=== PATIENT | female | born 1955 | race Caucasian/White ===

== ENCOUNTER 2020-01-04 15:45 | Outpatient (REF) | payer OTHER, SELFPAY ==
[2020-01-19 19:21] LABS: HPV mRNA E6/E7 rflx Not Detected (Not Detected)
== END 2020-01-04 15:46 | disposition home or self-care (01) ==
LOC: HO.LNP 15:45
PROVIDERS: Visit Provider Internal Medicine
DX: Z01.419 Encounter for gynecological examination (general) (routine) without abnormal findings (principal); Z78.0 Asymptomatic menopausal state; Z87.19 Personal history of other diseases of the digestive system
CPT/HCPCS: 87624; 87625; 88142

== ENCOUNTER 2020-01-06 10:03 | Outpatient (REF) | payer OTHER, SELFPAY ==
--- NOTE | 2020-01-06 10:49 | MM_ITS ---
EXAMINATION: MM SCREENING DIGITAL BREAST TOMOSYNTHESIS, BILATERAL CLINICAL INFORMATION: Screening. Asymptomatic. The lifetime risk of breast cancer based on the Tyrer-Cuzick Model is 11.0%. COMPARISON: Mammography: March 06, 2018 and studies dating back to October 18, 2015 TECHNIQUE: Digital breast tomosynthesis is performed in both the craniocaudal and mediolateral oblique views along with computer-aided detection (CAD). Synthesized 2D images are generated from the tomosynthesis. FINDINGS: The breasts are extremely dense, which lowers the sensitivity of mammography (ACR BI-RADS breast composition Category d). There are no significant masses, abnormal calcifications, or other abnormalities. MM/MM tomosynthesis screening BI IMPRESSION: There are no significant changes from prior study. ASSESSMENT: BI-RADS 1: Negative RECOMMENDATION: Routine annual mammography screening. This patient's information was entered into a reminder system with a target due date for their next mammogram.
[2020-01-06 11:15] LABS: MANUAL DIFF FLAG NO
[2020-01-06 11:30] LABS: Basophils Absolute Auto 0.1 X10*3/uL (0.0-0.2); Basophils Percent Auto 0.8 % (0-2); Eosinophils Absolute Auto 0.2 X10*3/uL (0.0-0.4); Eosinophils Percent Auto 3.4 % (0-4); Hematocrit 39.3 % (37-47); Hemoglobin 12.7 g/dl (12.0-16.0); Imm Gran Abs Auto 0.01 X10*3/uL (0.00-0.03); Imm Gran Pct Auto 0.2 % (0.0-0.4); Immature Retic Fraction 4.3 % (3.0-15.9); Lymphocytes Absolute Auto 1.8 X10*3/uL (1.2-4.9); Lymphocytes Percent Auto 27.9 % (20-40); Mean Corpuscular HGB Conc 32.3 g/dl (31.0-35.0); Mean Corpuscular Hemoglobin 28.9 pg (27.0-33.0); Mean Corpuscular Volume 89.3 fL (80-98); Mean Platelet Volume 10.2 fL (9.4-12.3); Monocytes Absolute Auto 0.6 X10*3/uL (0.1-1.2); Monocytes Percent Auto 8.6 % (2-11); Neutrophils Absolute Auto 3.8 X10*3/uL (2.0-8.3); Neutrophils Percent Auto 59.1 % (45-73); Platelet Count 337 X10*3/uL (160-400); Red Cell Distribution Width 12.8 % (11.0-16.0); Retic HGB Equivalent 32.4 pg (30.0-35.0); Reticulocyte Percent 0.9 % (0.5-1.8); White Blood Count 6.4 X10*3/uL (4.8-10.8)
[2020-01-06 11:43] LABS: Alanine Aminotransferase 17 U/L (0-31); Albumin Level 4.1 g/dL (3.5-5.0); Alkaline Phosphatase 78 U/L (39-117); Anion Gap 12 (12-20); Aspartate Amino Transferase 22 U/L (5-31); Bilirubin Total 0.6 mg/dL (0.0-1.0); Blood Urea Nitrogen 12 mg/dL (9-16); Calcium 9.3 mg/dL (8.4-10.2); Carbon Dioxide 29 mmol/L (22-29); Chloride 105 mmol/L (96-108); Cholesterol 191 mg/dL; Estimated Glomerular Filt Rate > 60; Glucose Random 83 mg/dL (60-115); HDL Cholesterol 63 mg/dL; Iron 71 mcg/dL (30-160); LDL Cholesterol Calculated 116 mg/dl; Percent Iron Saturation 17 % (15-50); Potassium 4.8 mmol/l (3.3-5.1); Sodium 141 mmol/L (135-145); Total Iron Binding Capacity 410 mcg/dL (228-428); Total Protein 7.3 g/dL (6.5-8.0); Triglycerides 62 mg/dL; Unsaturated Iron Binding 339 ug/dL; Uric Acid 4.8 mg/dL (2.4-5.7)
[2020-01-06 12:07] LABS: Ferritin 17 ng/mL (10-250); Thyroid Stimulating Hormone 0.77 mIU/mL (0.32-4.0); Vitamin D 25-OH Total 81.8 ng/mL (>30)
[2020-01-06 12:31] LABS: Folate 11.9 ng/mL (> or = 4.0); Vitamin B12 454 pg/mL (200-900)
[2020-01-07 04:18] LABS: HBsAGNum1 0.13 S/CO (0.00-0.99); Hepatitis B Surface Antigen Negative (Negative)
[2020-01-07 04:24] LABS: HBS Num1 0.44 mIU/mL (0-7.99); HBc Num1 0.06 S/CO (0.00-0.79); Hepatitis B Core Antibody Nonreactive (Nonreactive); ~HepC Num1 0.09 S/CO (0.00-0.79); ~Hepatitis B Surface Antibody NONREACTIVE (Nonreactive); ~Hepatitis C Antibody Nonreactive (Nonreactive)
== END 2020-01-06 10:04 | disposition home or self-care (01) ==
LOC: HO.MAMMO 10:03
PROVIDERS: PCP Internal Medicine; Visit Provider Internal Medicine
DX: Z00.00 Encounter for general adult medical examination without abnormal findings (principal); Z12.31 Encounter for screening mammogram for malignant neoplasm of breast; Z87.19 Personal history of other diseases of the digestive system
CPT/HCPCS: 36415; 77063; 77067; 80053; 80061; 82306; 82607; 82728; 82746; 83540; 84439; 84443; 84550; 85025; 85045; 86704; 86706; 86803; 87340

== ENCOUNTER 2020-03-31 14:29 | Outpatient (REF) | payer OTHER, SELFPAY ==
--- NOTE | 2020-03-31 14:33 | MM_ITS ---
EXAMINATION: BONE DENSITOMETRY CLINICAL INDICATION: Other specified disorders of bone density and structure. COMPARISON: Baseline BD dated 02/05/2017. TECHNIQUE: Using a [employer] DXA System (software version: 13.1) manufactured by [employer], dual-energy x-ray absorptiometry was performed of the lumbar spine and left hip. The images are of good technical quality. Summary results are attached. FINDINGS: AP SPINE L1-L4: Current: BMD 1.004 g/cm2, Z-score 0.3, T-score -1.5, osteopenia, 6.8% decrease from baseline (<5% change is not significant). Baseline: BMD 1.077 g/cm2. LEFT FEMUR, NECK: Current: BMD 0.785 g/cm2, Z-score -0.2, T-score -1.8, osteopenia. Baseline: BMD 0.803 g/cm2. LEFT FEMUR, TOTAL: Current: BMD 0.792 g/cm2, Z-score -0.4, T-score -1.7, osteopenia, 2.6% decrease from baseline (<5% change is not significant). Baseline: BMD 0.813 g/cm2. IDENTIFIED RISK FACTORS: Early menopause, secondary osteoporosis, family history (parental hip fracture), history of fracture (adult), glucocorticoids (chronic). HISTORY OF FRACTURE: Shoulder. MEDICATIONS: Calcium supplements or multivitamin, vitamin D, ERT/SERMS. MM/XR DEXA axial skeleton IMPRESSION: 1. DIAGNOSIS: Osteopenia based on the lowest T-score value of -1.8 in the femoral neck applying World Health Organization criteria. 2. 10-YEAR FRACTURE RISK PREDICTION, FRAX: Major osteoporotic fracture (clinical spine, forearm, hip or shoulder) 25.3%. Hip fracture 2.2%. 3. Treatment Recommendations: NOF guidelines recommend consideration for treatment in postmenopausal women and men age 50 and older presenting with the following: -A hip or vertebral (clinical or morphometric) fracture. -T-score less than or equal to -2.5 at the femoral neck or spine after appropriate evaluation to exclude secondary causes. -Low bone mass at the hip or spine and a 10-year fracture probability by FRAX of greater than or equal to 3% for hip fracture or greater than or equal to 20% for major osteoporotic fracture based on the [place] adapted WHO algorithm. 4. Other Recommendations: All treatment decisions require clinical judgment and consideration of individual patient factors, including patient preferences, comorbidities, previous drug use, risk factors not captured in the FRAX model (e.g. frailty, falls, vitamin D deficiency, increased bone turnover, interval significant decline in bone density) and possible under or overestimation of fracture risk by FRAX. Additional medical evaluation for secondary cause of low bone mineral density may be appropriate. FUTURE SCAN RECOMMENDATION: People with diagnosed cases of osteoporosis or at high risk for fracture should have regular bone mineral density tests. For patients eligible for Medicare, routine testing is allowed once every 2 years. The testing frequency can be increased to one year for patients who have rapidly progressing disease, those who are receiving or discontinuing medical therapy to restore bone mass, or have additional risk factors.
== END 2020-03-31 14:30 | disposition home or self-care (01) ==
LOC: HO.MAMMO 14:29
PROVIDERS: PCP Internal Medicine; Visit Provider Internal Medicine
DX: M85.80 Other specified disorders of bone density and structure, unspecified site (principal); Z78.0 Asymptomatic menopausal state; E27.49 Other adrenocortical insufficiency
CPT/HCPCS: 77080

== ENCOUNTER 2021-07-07 07:50 | Outpatient (REF) | payer OTHER, SELFPAY ==
--- NOTE | ~2021-07-07 | MM_ITS ---
EXAMINATION: MM SCREENING DIGITAL BREAST TOMOSYNTHESIS, BILATERAL CLINICAL INFORMATION: Screening. Asymptomatic. The lifetime risk of breast cancer based on the Tyrer-Cuzick Model is 14%. COMPARISON: Mammography: 01/06/2020; outside mammography 03/06/2018, 03/05/2018, 02/08/2017 ([place]). TECHNIQUE: Digital breast tomosynthesis is performed in both the craniocaudal and mediolateral oblique views along with computer-aided detection (CAD). Synthesized 2D images are generated from the tomosynthesis. FINDINGS: The breasts are heterogeneously dense, which may obscure small masses (ACR BI-RADS breast composition Category c). There are no significant masses, abnormal calcifications, or other abnormalities. Parenchymal pattern is similar to prior studies. There is a dermal lesion again noted overlying posterior medial right breast, previously marked with dermal marker. MM/MM tomosynthesis screening BI IMPRESSION: No mammographic evidence of malignancy. ASSESSMENT: BI-RADS 2: Benign RECOMMENDATION: Routine annual mammography screening. This patient's information was entered into a reminder system with a target due date for their next mammogram.
== END 2021-07-07 07:51 | disposition home or self-care (01) ==
LOC: HO.MAMMO 07:50
PROVIDERS: Visit Provider Internal Medicine
DX: Z12.31 Encounter for screening mammogram for malignant neoplasm of breast (principal)
CPT/HCPCS: 77063; 77067

== ENCOUNTER 2021-07-07 13:57 | Outpatient (REF) | payer OTHER, SELFPAY ==
[2021-07-08 13:33] LABS: BV Int Neg Control Negative (Negative); BV Int Pos Control Positive (Positive)
[2021-07-13 04:37] LABS: HPV mRNA E6/E7 rflx Not Detected (Not Detected)
== END 2021-07-07 13:58 | disposition home or self-care (01) ==
LOC: HO.LAB 13:57
PROVIDERS: Visit Provider Internal Medicine
DX: Z12.4 Encounter for screening for malignant neoplasm of cervix (principal); Z11.51 Encounter for screening for human papillomavirus (HPV)
CPT/HCPCS: 87480; 87510; 87624; 87660; 88142

== ENCOUNTER 2021-07-25 07:38 | Outpatient (REF) | payer OTHER, SELFPAY ==
[2021-07-25 11:25] LABS: MANUAL DIFF FLAG NO
[2021-07-25 11:32] LABS: Basophils Absolute Auto 0.1 X10*3/uL (0.0-0.2); Eosinophils Absolute Auto 0.7 X10*3/uL (0.0-0.4); Eosinophils Percent Auto 10.6 % (0-4); Hemoglobin 12.2 g/dl (12.0-16.0); Imm Gran Abs Auto 0.01 X10*3/uL (0.00-0.03); Imm Gran Pct Auto 0.2 % (0.0-0.4); Lymphocytes Absolute Auto 1.6 X10*3/uL (1.2-4.9); Lymphocytes Percent Auto 26.8 % (20-40); Mean Corpuscular HGB Conc 32.1 g/dl (31.0-35.0); Mean Corpuscular Hemoglobin 29.4 pg (27.0-33.0); Mean Corpuscular Volume 91.6 fL (80.0-98.0); Mean Platelet Volume 10.4 fL (9.4-12.3); Monocytes Absolute Auto 0.8 X10*3/uL (0.1-1.2); Monocytes Percent Auto 13.1 % (2-11); Neutrophils Percent Auto 48.3 % (45-73); Platelet Count 285 X10*3/uL (160-400); Red Blood Count 4.15 X10*6/uL (4.20-5.50); Red Cell Distribution Width 13.4 % (11.0-16.0); White Blood Count 6.1 X10*3/uL (4.8-10.8)
[2021-07-25 12:01] LABS: Alanine Aminotransferase 19 U/L (0-31); Albumin Level 3.7 g/dL (3.5-5.0); Alkaline Phosphatase 73 U/L (39-117); Anion Gap 10 (12-20); Aspartate Amino Transferase 22 U/L (5-31); Bilirubin Total 0.4 mg/dL (0.0-1.0); Blood Urea Nitrogen 11 mg/dL (9-16); Carbon Dioxide 27 mmol/L (22-29); Chloride 105 mmol/L (96-108); Cholesterol 190 mg/dL; Estimated Glomerular Filt Rate > 60; Glucose Random 94 mg/dL (60-115); HDL Cholesterol 59 mg/dL; LDL Cholesterol Calculated 109 mg/dl; Sodium 138 mmol/L (135-145); Total Protein 6.8 g/dL (6.5-8.0); Triglycerides 114 mg/dL
[2021-07-25 12:15] LABS: Erythrocyte Sedimentation Rate 20 MM/HR (0-20); Free T4 (Free Thyroxine) 0.88 ng/dL (0.71-1.85); Thyroid Stimulating Hormone 0.78 uIU/mL (0.32-4.0)
[2021-07-25 12:18] LABS: Folate 17.9 ng/mL (> or = 4.0); Vitamin B12 353 pg/mL (200-900)
[2021-07-25 14:34] LABS: CT PCR NOT DETECTED (Not Detect.); NG PCR NOT DETECTED (Not Detect.)
== END 2021-07-25 07:39 | disposition home or self-care (01) ==
LOC: HO.HMGCLDS 07:38
PROVIDERS: Visit Provider Internal Medicine
DX: Z11.3 Encounter for screening for infections with a predominantly sexual mode of transmission (principal); E78.00 Pure hypercholesterolemia, unspecified; Z87.19 Personal history of other diseases of the digestive system
CPT/HCPCS: 80053; 80061; 82306; 82607; 82746; 84439; 84443; 85025; 85652; 87491; 87591

== ENCOUNTER 2022-07-13 08:37 | Outpatient (REF) | payer MEDICARE, MEDICAID, SELFPAY ==
--- NOTE | ~2022-07-13 | MM_ITS ---
EXAMINATION: MM SCREENING DIGITAL BREAST TOMOSYNTHESIS, BILATERAL CLINICAL INFORMATION: Screening. Asymptomatic. The lifetime risk of breast cancer based on the Tyrer-Cuzick Model is 12%. COMPARISON: Mammography: 07/07/2021, 01/06/2020, outside breast imaging [place]: Mammography 03/06/2018, 03/05/2018, left breast ultrasound 03/06/2018. TECHNIQUE: Digital breast tomosynthesis is performed in both the craniocaudal and mediolateral oblique views along with computer-aided detection (CAD). Synthesized 2D images are generated from the tomosynthesis. Additional bilateral exaggerated CC views are provided. FINDINGS: The breasts are heterogeneously dense, which may obscure small masses (ACR BI-RADS breast composition Category c). There are no significant masses, abnormal calcifications, or other abnormalities. Parenchymal pattern is similar to prior studies. There is no developing density or architectural abnormality. The axilla and skin contours are unremarkable. No significant changes. MM/MM tomosynthesis screening BI IMPRESSION: No mammographic evidence of malignancy. ASSESSMENT: BI-RADS 1: Negative RECOMMENDATION: Routine annual mammography screening. This patient's information was entered into a reminder system with a target due date for their next mammogram.
== END 2022-07-13 08:38 | disposition home or self-care (01) ==
LOC: HO.MAMMO 08:37
PROVIDERS: PCP Internal Medicine; Visit Provider Internal Medicine
DX: Z12.31 Encounter for screening mammogram for malignant neoplasm of breast (principal)
CPT/HCPCS: 77063; 77067

== ENCOUNTER 2022-07-13 09:54 | Outpatient (REF) | payer MEDICARE, MEDICAID, SELFPAY ==
[2022-07-13 10:17] LABS: MANUAL DIFF FLAG NO
[2022-07-13 10:30] LABS: Basophils Absolute Auto 0.1 X10*3/uL (0.0-0.2); Basophils Percent Auto 1.3 % (0-2); Eosinophils Absolute Auto 0.5 X10*3/uL (0.0-0.4); Eosinophils Percent Auto 8.3 % (0-4); Hematocrit 39.2 % (37.0-47.0); Hemoglobin 12.6 g/dl (12.0-16.0); Imm Gran Abs Auto 0.01 X10*3/uL (0.00-0.03); Imm Gran Pct Auto 0.2 % (0.0-0.4); Lymphocytes Absolute Auto 1.4 X10*3/uL (1.2-4.9); Lymphocytes Percent Auto 25.3 % (20-40); Mean Corpuscular HGB Conc 32.1 g/dl (31.0-35.0); Mean Corpuscular Hemoglobin 29.2 pg (27.0-33.0); Mean Platelet Volume 9.6 fL (9.4-12.3); Monocytes Absolute Auto 0.6 X10*3/uL (0.1-1.2); Monocytes Percent Auto 10.3 % (2-11); Neutrophils Percent Auto 54.6 % (45-73); Platelet Count 327 X10*3/uL (160-400); Red Blood Count 4.31 X10*6/uL (4.20-5.50); Red Cell Distribution Width 13.4 % (11.0-16.0); White Blood Count 5.5 X10*3/uL (4.8-10.8)
[2022-07-13 11:01] LABS: Alanine Aminotransferase 19 U/L (0-31); Alkaline Phosphatase 78 U/L (39-117); Anion Gap 10 (12-20); Aspartate Amino Transferase 22 U/L (5-31); Bilirubin Total 0.5 mg/dL (0.0-1.0); Blood Urea Nitrogen 13 mg/dL (9-16); Calcium 9.4 mg/dL (8.4-10.2); Carbon Dioxide 30 mmol/L (22-29); Chloride 107 mmol/L (96-108); Cholesterol 203 mg/dL; Estimated Glomerular Filt Rate > 60; Glucose Random 89 mg/dL (60-115); HDL Cholesterol 65 mg/dL; LDL Cholesterol Calculated 123 mg/dl; Potassium 4.3 mmol/L (3.3-5.1); Sodium 143 mmol/L (135-145); Total Protein 7.1 g/dL (6.5-8.0); Triglycerides 76 mg/dL
[2022-07-13 11:11] LABS: Appearance Urine Clear; Color Urine Yellow; Glucose Urine UA Negative (Negative); Leukocyte Esterase Urine Small (1+) (Negative); Nitrite Urine Negative (Negative); PH 5.5 (5.0-9.0); UMIC TRIGGER UA YES; Urine Blood Negative (Negative); Urine Ketones Negative (Negative); Urine Protein Negative (Neg-Trace)
[2022-07-13 11:26] LABS: Bacteria Urine None Seen (None Seen); Hyaline Casts Urine 0-2 /LPF (0-2); RBC Urine 0-2 /HPF (0-2); Squamous Epithelial Cell Urine 0-2 /HPF (0-2); WBC Urine 0-5 /HPF (0-5)
[2022-07-13 11:33] LABS: Folate 18.3 ng/mL (> or = 4.0); Thyroid Stimulating Hormone 0.87 uIU/mL (0.32-4.0); Vitamin B12 576 pg/mL (200-900)
== END 2022-07-13 09:55 | disposition home or self-care (01) ==
LOC: HO.LAB 09:54
PROVIDERS: PCP Internal Medicine; Visit Provider Internal Medicine
DX: M85.88 Other specified disorders of bone density and structure, other site (principal); E78.00 Pure hypercholesterolemia, unspecified
CPT/HCPCS: 36415; 80053; 80061; 81001; 82607; 82746; 84439; 84443; 85025

== ENCOUNTER 2022-07-18 14:01 | Outpatient (REF) | payer MEDICARE, MEDICAID, SELFPAY ==
--- NOTE | ~2022-07-18 | MM_ITS ---
EXAMINATION: BONE DENSITOMETRY CLINICAL INDICATION: Age-related osteoporosis without current pathological fracture. COMPARISON: Previous BD dated 03/31/2020 and baseline BD dated 02/05/2017. TECHNIQUE: Using a [employer] DXA System (software version: 13.1) manufactured by [employer], dual-energy x-ray absorptiometry was performed of the lumbar spine and left hip. The images are of good technical quality. Summary results are attached. FINDINGS: AP SPINE L1-L4: Current: BMD 1.012 g/cm2, Z-score 0.4, T-score -1.4, osteopenia, 0.8% increase from previous, 6.0% decrease from baseline (<5% change is not significant). Prior: BMD 1.004 g/cm2. Baseline: BMD 1.077 g/cm2. LEFT FEMUR, NECK: Current: BMD 0.764 g/cm2, Z-score -0.3, T-score -2.0, osteopenia. Prior: BMD 0.785 g/cm2. Baseline: BMD 0.803 g/cm2. LEFT FEMUR, TOTAL: Current: BMD 0.784 g/cm2, Z-score -0.4, T-score -1.8, osteopenia, 1.0% decrease from previous, 3.6% decrease from baseline (<5% change is not significant). Prior: BMD 0.792 g/cm2. Baseline: BMD 0.813 g/cm2. IDENTIFIED RISK FACTORS: History of adult fracture. Parental hip fracture. Secondary osteoporosis (intestinal or bowel disease, early menopause). Chronic glucocorticoids. HISTORY OF FRACTURE: Humerus/shoulder. MEDICATIONS: Calcium supplement and/or multivitamin. Vitamin D. MM/XR DEXA axial skeleton IMPRESSION: 1. DIAGNOSIS: Osteopenia based on the lowest T-score value of -2.0 in the femoral neck applying World Health Organization criteria. 2. 10-YEAR FRACTURE RISK PREDICTION, FRAX: Major osteoporotic fracture (clinical spine, forearm, hip or shoulder) 27.4%. Hip fracture 3.4%. 3. Treatment Recommendations: NOF guidelines recommend consideration for treatment in postmenopausal women and men age 50 and older presenting with the following: -A hip or vertebral (clinical or morphometric) fracture. -T-score less than or equal to -2.5 at the femoral neck or spine after appropriate evaluation to exclude secondary causes. -Low bone mass at the hip or spine and a 10-year fracture probability by FRAX of greater than or equal to 3% for hip fracture or greater than or equal to 20% for major osteoporotic fracture based on the [place] adapted WHO algorithm. 4. Other Recommendations: All treatment decisions require clinical judgment and consideration of individual patient factors, including patient preferences, comorbidities, previous drug use, risk factors not captured in the FRAX model (e.g. frailty, falls, vitamin D deficiency, increased bone turnover, interval significant decline in bone density) and possible under or overestimation of fracture risk by FRAX. Additional medical evaluation for secondary cause of low bone mineral density may be appropriate. FUTURE SCAN RECOMMENDATION: People with diagnosed cases of osteoporosis or at high risk for fracture should have regular bone mineral density tests. For patients eligible for Medicare, routine testing is allowed once every 2 years. The testing frequency can be increased to one year for patients who have rapidly progressing disease, those who are receiving or discontinuing medical therapy to restore bone mass, or have additional risk factors.
== END 2022-07-18 14:02 | disposition home or self-care (01) ==
LOC: HO.MAMMO 14:01
PROVIDERS: PCP Internal Medicine; Visit Provider Internal Medicine
DX: Z13.820 Encounter for screening for osteoporosis (principal); M81.0 Age-related osteoporosis without current pathological fracture; M85.88 Other specified disorders of bone density and structure, other site; Z78.0 Asymptomatic menopausal state
CPT/HCPCS: 77080

== ENCOUNTER 2023-04-15 16:01 | Outpatient (AMB) | payer MEDICARE, SELFPAY ==
--- NOTE | 2023-04-15 16:06 | MHC.PC.OV ---
Vital Signs 04/15/23 16:06 Height 5 ft 6.5 in Blood Pressure Location Lt brachial Position Sitting Pulse Source Pulse Oximeter Oxygen Delivery Method Room Air Intake Visit Reasons: Thrush External Grinder Tender Required: No Allergies Echinacea Allergy (Intermediate, Verified 04/15/23 16:06) rash isopropyl alcohol Allergy (Intermediate, Verified 04/15/23 16:06) rash Sulfa (Sulfonamide Antibiotics) Allergy (Mild, Verified 04/15/23 16:06) Rash ciprofloxacin [From Cipro] Adverse Reaction (Severe, Verified 04/15/23 16:06) leg cramps Medication List - Last Reconciled 04/15/23 by Shikha Fleming MD cetirizine (Zyrtec) 10 mg PO DAILY PRN fluconazole Two tablets the 1st day then 1 tablet once a day orally; valacyclovir 1,000 mg PO DAILY Tobacco use date assessed: 04/15/23 Fall risk assessment: No Falls in past year Last assessed Fall Risk: 04/15/23 Dental Screening Dental Screen Date: 04/15/23 HPI Thrush HPI Details 67-year-old female with a history of osteopenia coming in for an acute problem. Through Telehealth was told pouch inflammation and was prescribed flagyl. but had thrush was rx. nystatin [id number] u ml but it does not seem to be clearing. [facility] Medical History (Updated 04/15/23 @ 16:16 by Shikha Fleming MD) Kina infection COVID-19 virus infection Lateral epicondylitis of elbow Onychomycosis Annual physical exam History of ulcerative colitis Shoulder fracture, right Surgical History (Updated 01/04/20 @ 15:08 by Shikha Fleming MD) H/O eye surgery Ulcerative colitis Family History (Updated 08/02/21 @ 13:32 by Shikha Fleming MD) Father CAD (coronary artery disease), Onset Age: 64 Brother Cancer of eye, Onset Age: 67 Skin cancer, Onset Age: 40 Sister Leukemia, Onset Age: 55 MDS (myelodysplastic syndrome), Onset Age: 51 Skin cancer, Onset Age: 45 Mother Lymphoma, Onset Age: 84 CAD (coronary artery disease), Onset Age: 66 Daughter Substance abuse Depression Social History (Updated 07/13/22 @ 09:21 by Shikha Fleming MD) Housing: House Alcohol intake: current Patient Tobacco Use Status: Never used Tobacco e-Cigarette/Vaping Use: Never Used Second Hand Smoke Exposure: No Current occupational status: unemployed Cognitive needs: No Hearing needs: No Vision needs: No Questionnaire Thrive Questionnaire Date Thrive assessed: 07/13/22 AUDIT C Alcohol Use Questionnaire (AUDIT-C) 1. How often do you have a drink containing alcohol?: Monthly or less 2. How many drinks containing alcohol do you have on a typical day when you are drinking?: 1 or 2 3. How often do you have six or more drinks on one occasion?: Never Total Score: 1 IAN-7 AMB Questionnaire IAN-7 Date IAN - 7 assessed: 04/15/23 Source: Developed by Drs. Nuno Licona, Yudy Carson, Michael Ching and colleagues, with an educational katharine from [employer]. Physical exam (Primary Care) Vital Signs: Oxygen Delivery Method Room Air 04/15/23 16:06 Tobacco/Smoking Status: Tobacco use Status Tobacco use date assessed 04/15/23 04/15/23 16:10 Patient Tobacco Use Status Never used Tobacco 04/15/23 16:10 e-Cigarette/Vaping Use Never Used 04/15/23 16:10 Thrive Assessment: Date of Thrive Assessment Date Thrive assessed 07/13/22 04/15/23 16:10 Telehealth Telehealth Location of provider rendering services: practice address Location of patient: address on file Patient Identification confirmed using: Name, : Yes Telehealth method: voice only ([id number]) Patient verbally consented to treatment: Yes Patient verbally consented to billing insurance company: Yes Patient informed of any privacy concerns related to visit: Yes Minutes spent on Phone/Video with Pt.: 15 Assessment and Plan Assessment & Plan (1) Thrush: Code(s): B37.0 - Candidal stomatitis Plan: Nystatin prescription has not been clearing the problem and so will prescribed the oral fluconazole Medications: New fluconazole Two tablets the 1st day then 1 tablet once a day orally; 8 tabs 0RF B37.0 - Candidal stomatitis Coding Level of Care Code Tele Est Pt Level 3 (09925) Diagnoses Thrush B37.0
== END 2023-04-15 17:44 | disposition home or self-care (01) ==
LOC: HO.HMGH 16:01
PROVIDERS: PCP Internal Medicine; Visit Provider Internal Medicine
DX: B37.0 Candidal stomatitis (principal)
CPT/HCPCS: 99442

== ENCOUNTER 2023-07-19 08:06 | Outpatient (REF) | payer MEDICARE, SELFPAY ==
--- NOTE | ~2023-07-19 | MM_ITS ---
EXAMINATION: MM SCREENING DIGITAL BREAST TOMOSYNTHESIS, BILATERAL CLINICAL INFORMATION: Screening. Asymptomatic. COMPARISON: Mammography: This study is compared with prior exams dating back to 2019. TECHNIQUE: Digital breast tomosynthesis is performed in both the craniocaudal and mediolateral oblique views along with computer-aided detection (CAD). Synthesized 2D images are generated from the tomosynthesis. FINDINGS: The breasts are extremely dense, which lowers the sensitivity of mammography (ACR BI-RADS breast composition Category d). There are no significant masses, abnormal calcifications, or other abnormalities. MM/MM tomosynthesis screening BI IMPRESSION: No mammographic evidence of malignancy. ASSESSMENT: BI-RADS BI-RADS 1 - Negative RECOMMENDATION: Routine annual mammography screening. 1 year F/U This examination should not preclude the clinical evaluation of a suspicious palpable abnormality. This patient's information was entered into a reminder system with a target due date for their next mammogram.
--- NOTE | 2023-07-19 10:51 | ECG_ITS ---
Test Reason : SYNCOPE Blood Pressure : / mmHG Vent. Rate : 070 BPM Atrial Rate : 070 BPM P-R Int : 150 ms QRS Dur : 094 ms QT Int : 392 ms P-R-T Axes : 049 068 051 degrees QTc Int : 423 ms Normal sinus rhythm Normal ECG No previous ECGs available Referred By: Shikha Fleming Electronically Signed By:BABAR BOLES MD
== END 2023-07-19 08:07 | disposition home or self-care (01) ==
LOC: HO.MAMMO 08:06
PROVIDERS: PCP Internal Medicine; Visit Provider Internal Medicine
DX: R55 Syncope and collapse (principal); Z12.31 Encounter for screening mammogram for malignant neoplasm of breast
CPT/HCPCS: 77063; 77067; 93005

== ENCOUNTER 2023-07-19 08:52 | Outpatient (AMB) | payer MEDICARE, SELFPAY ==
[2023-07-19 09:19] VITALS: BP 108/72; PULSE 79; O2SAT 100; BMI 19.7
--- NOTE | 2023-07-19 09:19 | A.OFFPC_ITS ---
Vital Signs 07/19/23 09:19 Height 5 ft 6.5 in Weight 124 lb 0.6 oz BMI 19.7 BP 108/72 Blood Pressure Location Lt brachial Position Sitting Pulse 79 Pulse Source Pulse Oximeter Pulse Oximetry (%) 100 Oxygen Delivery Method Room Air Intake Visit Reasons: Annual Exam Intake Note: Patient is here today for a physical. Fitness/Wellness Director Required: No Allergies Echinacea Allergy (Intermediate, Verified 07/19/23 09:19) rash isopropyl alcohol Allergy (Intermediate, Verified 07/19/23 09:19) rash Sulfa (Sulfonamide Antibiotics) Allergy (Mild, Verified 07/19/23 09:19) Rash ciprofloxacin [From Cipro] Adverse Reaction (Severe, Verified 07/19/23 09:19) leg cramps metronidazole Adverse Reaction (Mild, Verified 07/19/23 09:29) Abdominal Pain Medication List - Last Reconciled 07/19/23 by Shikha Fleming MD diphenoxylate-atropine 2.5-0.025 mg (Lomotil) 1 tab PO BEDTIME PRN loratadine 10 mg PO DAILY valacyclovir 1,000 mg PO DAILY Tobacco use date assessed: 07/19/23 Fall risk assessment: No Falls in past year Last assessed Fall Risk: 07/19/23 Dental Screening Dental Screen Date: 07/19/23 Did you have a dental visit in the last 12 months?: Yes Did you have a dental problem in the last 6 months where you did not have access to dental care?: No Was dental information given to patient?: Patient has dentist HPI Annual Exam HPI Details 67-year-old female with a history of ost eopenia coming in for physical exam last seen in April 2023 for thrush. Patient's bone density was done in July 2022 Pap smear done in July 2021 HPV negative mammogram done in July 2022 due for this year patient has had colectomy before. For ulcerative colitis. 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 Recommend repeat pouchoscopy in 1 year. has problem with flagyl with abd pain and tried to uses augmentin but took a long time so wanted to try metronidazole. syncope- 10/2022 tired and alcohol - emt- dehydrate,, had another states warmer day- went light headed then syncope deny chest pain [facility] Medical History (Updated 07/19/23 @ 10:11 by Shikha lFeming MD) Annual physical exam History of ulcerative colitis Kina infection COVID-19 virus infection Lateral epicondylitis of elbow Onychomycosis Shoulder fracture, right Surgical History (Updated 01/04/20 @ 15:08 by Shikha Fleming MD) H/O eye surgery Ulcerative colitis Family History (Updated 08/02/21 @ 13:32 by Shikha Fleming MD) Father CAD (coronary artery disease), Onset Age: 64 Brother Cancer of eye, Onset Age: 67 Skin cancer, Onset Age: 40 Sister Leukemia, Onset Age: 55 MDS (myelodysplastic syndrome), Onset Age: 51 Skin cancer, Onset Age: 45 Mother Lymphoma, Onset Age: 84 CAD (coronary artery disease), Onset Age: 66 Daughter Substance abuse Depression Social History (Updated 07/19/23 @ 09:58 by Shikha Fleming MD) Housing: House Alcohol intake: current Comment: 2 x a month 1 drink Patient Tobacco Use Status: Never used Tobacco e-Cigarette/Vaping Use: Never Used Second Hand Smoke Exposure: No Current occupational status: unemployed Cognitive needs: No Hearing needs: No Vision needs: No Questionnaire PHQ-9 Over the last 2 weeks, how often have you been bothered by any of the following problems? 1. Little interest or pleasure in doing things: not at all 2. Feeling down, depressed, or hopeless: not at all 3. Trouble falling or staying asleep, or sleeping too much: not at all 4. Feeling tired or having little energy: not at all 5. Poor appetite or overeating: not at all 6. Feeling bad about yourself - or that you are a failure or have let yourself or your family down: not at all 7. Trouble concentrating on things, such as reading the newspaper or watching television: not at all 8. Moving or speaking so slowly that other people could have noticed. Or the opposite - being so fidgety or restless that you have been moving around a lot more than usual: not at all 9. Thoughts that you would be better off or of hurting yourself in some way: not at all Total score: 0 Depression Screening Interpretation: Negative Depression Screening Done: Yes Source: Developed by Drs. Nuno Licona, Yudy Carson, Michael Ching and colleagues, with an educational katharine from [employer]. Thrive Questionnaire Date Thrive assessed: 07/19/23 I am a: Patient What is your living situation today?: I have a steady place to live Within the past 12 months, did the food you bought not last and you didn't have the money to get more?: Never true Within the past 12 months, did you worry whether your food would run out before you got money to buy more?: Never true Do you have trouble paying for medicines?: No Do you have trouble getting transportation to medical appointments?: No Do you have trouble paying your heating and electricity bill?: No Do you have trouble taking care of your child, family member or friend?: No Do you have trouble with day-to-day activities such as bathing, preparing meals, shopping, managing finances, etc.?: No Are you currently unemployed and looking for a job?: No Are you interested in more education?: No Please select the resources that you would like help with: None Currently or been in a relationship where the following occur: no concerns reported THRIVE Score: 0 AUDIT C Alcohol Use Questionnaire (AUDIT-C) 1. How often do you have a drink containing alcohol?: Monthly or less 2. How many drinks containing alcohol do you have on a typical day when you are drinking?: 1 or 2 3. How often do you have six or more drinks on one occasion?: Never Total Score: 1 IAN-7 AMB Questionnaire IAN-7 Date IAN - 7 assessed: 07/19/23 Feeling nervous, anxious, or on edge: 0 = Not at all Not being able to stop or control worryin = Not at all Worrying too much about different things: 0 = Not at all Trouble relaxin = Not at all Being so restless that it is hard to sit still: 0 = Not at all Becoming easily annoyed or irritable: 0 = Not at all Feeling afraid as if something awful might happen: 0 = Not at all Total IAN-7 score (0-4 normal; 5-9 mild; 10-14 moderate; 15-21 severe): 0 Source: Developed by Drs. Nuno Licona, Yudy Carson, Michael Ching and colleagues, with an educational katharine from [employer]. IAN-7 Assessment Billing IAN-7 Assessment Tool: IAN-7 Assessment 65091 Review of Systems Const Denies poor appetite and Denies weakness Eyes Denies no additional complaints ENT Reports Normal hearing present, Denies dizziness, Denies nasal congestion, Denies tinnitus and Denies sore throat Card Denies chest pain, Denies syncope, Denies rapid heart rate and Denies dyspnea Resp Denies cough and Denies dyspnea GI Denies change in stool character, Reports constipation, Denies diarrhea, Denies nausea and Denies vomiting Denies urinary frequency, Denies difficulty voiding and Denies dysuria Neuro Reports Normal hearing present, Denies confusion, Denies dizziness, Denies syncope and Denies weakness Psych Denies confusion Physical exam (Primary Care) Vital Signs: Last Vital Signs Pulse 79 07/19/23 09:19 BP 108/72 07/19/23 09:19 Pulse Ox 100 07/19/23 09:19 Oxygen Delivery Method Room Air 07/19/23 09:19 BMI result Body Mass Index 19.7 Tobacco/Smoking Status: Tobacco use Status Tobacco use date assessed 07/19/23 07/19/23 09:21 Patient Tobacco Use Status Never used Tobacco 07/19/23 09:21 e-Cigarette/Vaping Use Never Used 07/19/23 09:21 PHQ-9: PHQ-9 Score PHQ-9: Total score 0 07/19/23 09:21 Depression Screening Interpretation: Negative Thrive Assessment: Date of Thrive Assessment Date Thrive assessed 07/19/23 07/19/23 09:21 Currently or been in a relationship where the following occur: no concerns reported Const General: No confusion Orientation/consciousness: No confusion HENMT Head: Yes normocephalic Ears: external ears normal and TM's normal bilaterally Face and sinus: Yes normal facial exam Mouth: moist mucous membranes Throat: Yes tonsils normal Eyes Conjunctivae: conjunctivae normal Pupils: Equal, round and reactive pupils present and Pupil accommodation reflex normal Direct Ophthalmoscopy: normal light reflex Neck Neck: No lymphadenopathy Thyroid: Thyroid normal Chest Chest palpation & inspection: normal inspection of the chest Resp Effort & Inspection: normal respiratory effort and no audible wheezes Auscultation: clear to auscultation bilaterally, no crackles, no wheezes and lung sounds not diminished Cardio Rate: regular rate Rhythm: regular rhythm Peripheral pulses: radial pulses present and dorsalis pedis present GI Palpation (GI): no masses Auscultation: normal bowel sounds and normoactive bowel sounds Rectal Exam - Female: deferred Skin General skin exam: no rashes or lesions noted Rashes: no rashes Neuro General: No confusion Cranial nerves: Yes Equal, round and reactive pupils present and Yes Normal hearing present Cognition (Neuro): normal cognition Gait exam (Neuro): Normal gait present Motor exam (neuro): 5/5 motor strength present throughout Deep tendon reflexes (DTR's): Right brachioradialis reflex intensity grade: 2+, Left brachioradialis reflex intensity grade: 2+, Right patellar reflex intensity grade: 2+ and Left patellar reflex intensity grade: 2+ Extrem General: No edema Assessment and Plan Assessment & Plan (1) Annual physical exam: Code(s): Z00.00 - Encounter for general adult medical examination without abnormal findings (2) History of ulcerative colitis: Comment: History of proctocolectomy Code(s): Z87.19 - Personal history of other diseases of the digestive system Plan: Patient continues to follow-up with Gastroenterology in [facility]. Having pouchoscopy yearly. (3) Osteopenia: Code(s): M85.80 - Other specified disorders of bone density and structure, unspecified site Qualifiers: Osteopenia location: spine Qualified Code(s): M85.88 - Other specified disorders of bone density and structure, other site Plan: Patient is up-to-date with bone density (4) Facial dermatitis: Comment: nose Code(s): L30.9 - Dermatitis, unspecified (5) Syncope: Code(s): R55 - Syncope and collapse Plan: this has happened multiple times (6) Hearing deficit: Code(s): H91.90 - Unspecified hearing loss, unspecified ear Plan: decline hearing aid Orders: Orders Complete Blood Count Auto Diff Today R55 - Syncope and collapse Comprehensive Met. Panel Today R55 - Syncope and collapse Free T4 (Free Thyroxine) Today R55 - Syncope and collapse Thyroid Stimulating Hormone Today R55 - Syncope and collapse Vitamin D 25-OH Total Today R55 - Syncope and collapse Vitamin B12 and Folate Today R55 - Syncope and collapse Lipid Panel Today E78.00 - Pure hypercholesterolemia, unspecified, R55 - Syncope and collapse ECG 12 lead EKG Today R55 - Syncope and collapse Referrals Dermatology Referral L30.9 - Dermatitis, unspecified Medications: New valacyclovir 1,000 mg PO DAILY 30 tabs 1RF Coding Level of Care Code Est Pt Prev Care >65y(98220) Diagnoses Annual physical exam Z00.00 History of ulcerative colitis Z87.19 Osteopenia of spine M85.88 Osteopenia location: spine Facial dermatitis L30.9 Syncope R55 Hearing deficit H91.90 Additional Codes IAN-7 Assessment Billing - IAN-7 Assessment Tool: IAN-7 Assessment 45149 ([id number])
== END 2023-07-19 10:22 | disposition home or self-care (01) ==
PROVIDERS: Visit Provider Internal Medicine
DX: Z00.00 Encounter for general adult medical examination without abnormal findings (principal); Z87.19 Personal history of other diseases of the digestive system; M85.88 Other specified disorders of bone density and structure, other site; L30.9 Dermatitis, unspecified; R55 Syncope and collapse; H91.93 Unspecified hearing loss, bilateral
CPT/HCPCS: 99397

== ENCOUNTER → 2023-07-19 09:15 | Outpatient (BNV) | payer MEDICARE, SELFPAY | PROVIDERS: PCP Internal Medicine; Visit Provider Radiology Diagnostic Radiology | DX: Z12.31 Encounter for screening mammogram for malignant neoplasm of breast (principal) | CPT/HCPCS: 77063; 77067 ==

== ENCOUNTER → 2023-07-19 10:51 | Outpatient (BNV) | payer MEDICARE, SELFPAY | PROVIDERS: PCP Internal Medicine; Visit Provider Internal Medicine Cardiovascular Disease | DX: R55 Syncope and collapse (principal) | CPT/HCPCS: 93010 ==

== ENCOUNTER 2023-07-22 09:46 | Outpatient (REF) | payer MEDICARE, SELFPAY ==
[2023-07-22 11:12] LABS: MANUAL DIFF FLAG NO
[2023-07-22 11:17] LABS: Basophils Absolute Auto 0.1 X10*3/uL (0.0-0.2); Eosinophils Absolute Auto 0.2 X10*3/uL (0.0-0.4); Eosinophils Percent Auto 3.7 % (0-4); Hemoglobin 12.8 g/dl (12.0-16.0); Imm Gran Abs Auto 0.01 X10*3/uL (0.00-0.03); Imm Gran Pct Auto 0.2 % (0.0-0.4); Lymphocytes Absolute Auto 1.3 X10*3/uL (1.2-4.9); Lymphocytes Percent Auto 25.3 % (20-40); Mean Corpuscular HGB Conc 32.8 g/dl (31.0-35.0); Mean Corpuscular Hemoglobin 29.6 pg (27.0-33.0); Mean Corpuscular Volume 90.3 fL (80.0-98.0); Mean Platelet Volume 9.6 fL (9.4-12.3); Monocytes Absolute Auto 0.5 X10*3/uL (0.1-1.2); Neutrophils Absolute Auto 3.1 x10*3/uL (2.0-8.3); Neutrophils Percent Auto 60.8 % (45-73); Platelet Count 300 X10*3/uL (160-400); Red Blood Count 4.32 X10*6/uL (4.20-5.50); Red Cell Distribution Width 13.2 % (11.0-16.0); White Blood Count 5.1 X10*3/uL (4.8-10.8)
[2023-07-22 11:35] LABS: Alanine Aminotransferase 18 U/L (0-31); Albumin Level 4.1 g/dL (3.5-5.0); Alkaline Phosphatase 72 U/L (39-117); Anion Gap 13 (12-20); Aspartate Amino Transferase 21 U/L (5-31); Bilirubin Total 0.5 mg/dL (0.0-1.0); Blood Urea Nitrogen 11 mg/dL (9-16); Calcium 9.3 mg/dL (8.4-10.2); Carbon Dioxide 26 mmol/L (22-29); Chloride 108 mmol/L (96-108); Cholesterol 186 mg/dL (<200); Estimated Glomerular Filt Rate > 60; Glucose Random 92 mg/dL (60-115); HDL Cholesterol 66 mg/dL (>40); LDL Cholesterol Calculated 102 mg/dL (<100); Sodium 143 mmol/L (135-145); Total Protein 7.9 g/dL (6.5-8.0); Triglycerides 90 mg/dL (<150)
[2023-07-22 11:53] LABS: Free T4 (Free Thyroxine) 0.94 ng/dL (0.71-1.85); Thyroid Stimulating Hormone 0.89 uIU/mL (0.32-4.0); Vitamin D 25-OH Total 69.5 ng/mL (>30)
[2023-07-22 12:01] LABS: Folate 13.7 ng/mL (> or = 4.0); Vitamin B12 461 pg/mL (200-900)
== END 2023-07-22 09:47 | disposition home or self-care (01) ==
LOC: HO.10HDL 09:46
PROVIDERS: Visit Provider Internal Medicine
DX: R55 Syncope and collapse (principal); E78.00 Pure hypercholesterolemia, unspecified
CPT/HCPCS: 36415; 80053; 80061; 82306; 82607; 82746; 84439; 84443; 85025

== ENCOUNTER 2023-10-31 11:58 | Outpatient (REF) | payer MEDICARE, SELFPAY ==
--- NOTE | ~2023-10-31 | US_ITS ---
EXAMINATION: US SCREENING ULTRASOUND BREAST, BILATERAL CLINICAL INFORMATION: Dense breasts on mammography. Screening ultrasound. COMPARISON: Left breast ultrasound 04/02/2018. TECHNIQUE: Ultrasound is performed using grayscale imaging and color Doppler. Imaging is performed to include the four quadrants, axillae, and retroareolar regions. Both breasts are imaged. FINDINGS: Right breast: There is no suspicious finding by ultrasound. There is no solid mass, cyst, abnormal shadowing, or focal architectural abnormality. No abnormal lymph nodes in the axilla. Left breast: There is no suspicious finding by ultrasound. There is no solid mass cyst, abnormal shadowing, or focal architectural abnormality. No abnormal lymph nodes in the axilla. US/US breast BI complete IMPRESSION: No suspicious findings on screening breast ultrasound. ASSESSMENT: BI-RADS 1 - Negative RECOMMENDATION: 1 year F/U This patient's information was entered into a reminder system with a target due date for their next mammogram. Electronically signed by: Nikita Kilgore MD 10/31/2023 01:14 PM EDT
== END 2023-10-31 11:59 | disposition home or self-care (01) ==
LOC: HO.MAMMO 11:58
PROVIDERS: PCP Internal Medicine; Visit Provider Internal Medicine
DX: R92.30 Dense breasts, unspecified (principal)
CPT/HCPCS: 76641

== ENCOUNTER → 2023-10-31 12:00 | Outpatient (BNV) | payer MEDICARE, SELFPAY | PROVIDERS: PCP Internal Medicine; Visit Provider Radiology Diagnostic Radiology | DX: R92.8 Other abnormal and inconclusive findings on diagnostic imaging of breast (principal) | CPT/HCPCS: 76641 ==

== ENCOUNTER 2024-03-20 12:32 | Outpatient (AMB) | payer MEDICARE, SELFPAY ==
--- NOTE | 2024-03-20 12:32 | MHC.PC.OV ---
Intake Visit Reasons: RSV Symptoms Allergies Echinacea Allergy (Intermediate, Verified 03/20/24 12:33) rash isopropyl alcohol Allergy (Intermediate, Verified 03/20/24 12:33) rash Sulfa (Sulfonamide Antibiotics) Allergy (Mild, Verified 03/20/24 12:33) Rash ciprofloxacin [From Cipro] Adverse Reaction (Severe, Verified 03/20/24 12:33) leg cramps metronidazole Adverse Reaction (Mild, Verified 03/20/24 12:33) Abdominal Pain Tobacco use date assessed: 03/20/24 Fall risk assessment: No Falls in past year Last assessed Fall Risk: 03/20/24 Dental Screening Dental Screen Date: 03/20/24 Did you have a dental visit in the last 12 months?: Yes Did you have a dental problem in the last 6 months where you did not have access to dental care?: No Was dental information given to patient?: Patient has dentist HPI RSV Symptoms HPI Details The patient is a 68-year-old female presenting with symptoms of recurring green nasal discharge, dry cough, watery eyes, and headaches. These symptoms have been persistent since August of last year, and the patient reports they occur despite using various allergy medications. Initially, symptoms responded partially to Claritin, but effectiveness has decreased over time. The patient switched to Zyrtec and occasionally uses Mucinex and nasal sprays such as saline and Flonase. Despite these interventions, the symptoms recur approximately every week or week and a half. The patient historically experiences seasonal allergies in the spring, late summer, and fall but notes that symptoms, typically lasting a couple of weeks, have become persistent. There is significant concern about whether the symptoms indicate something more severe. She notes a dry hacking cough that has persisted over the last several months, prompting a consideration for further investigation. It is significant that her grandchildren, with whom she has contact, recently had respiratory illnesses including one with a recent ear infection. - Ears, Nose, Throat: Reports green nasal discharge. - Respiratory: Reports recurring dry cough. - Eyes: Reports watery eyes. - Neurological: Reports headaches. - General: Reports persistence of symptoms beyond typical seasonal allergy duration. ON LICENSE OF [facility] Medical History (Updated 03/20/24 @ 15:04 by Shikha Fleming MD) Annual physical exam History of ulcerative colitis Kina infection COVID-19 virus infection Lateral epicondylitis of elbow Onychomycosis Shoulder fracture, right Surgical History (Updated 11/02/20 @ 15:08 by Shikha Fleming MD) H/O eye surgery Ulcerative colitis Family History (Updated 08/02/21 @ 13:32 by Shikha Fleming MD) Father CAD (coronary artery disease), Onset Age: 64 Brother Cancer of eye, Onset Age: 67 Skin cancer, Onset Age: 40 Sister Leukemia, Onset Age: 55 MDS (myelodysplastic syndrome), Onset Age: 51 Skin cancer, Onset Age: 45 Mother Lymphoma, Onset Age: 84 CAD (coronary artery disease), Onset Age: 66 Daughter Substance abuse Depression Social History (Updated 07/19/23 @ 09:58 by Shikha Fleming MD) Housing: House Alcohol intake: current Comment: 2 x a month 1 drink Patient Tobacco Use Status: Never used Tobacco Tobacco use type: Cigarette e-Cigarette/Vaping Use: Never Used Second Hand Smoke Exposure: No Current occupational status: unemployed Cognitive needs: No Hearing needs: No Vision needs: No Questionnaire PHQ-9 Over the last 2 weeks, how often have you been bothered by any of the following problems? 1. Little interest or pleasure in doing things: not at all 2. Feeling down, depressed, or hopeless: not at all 3. Trouble falling or staying asleep, or sleeping too much: not at all 4. Feeling tired or having little energy: not at all 5. Poor appetite or overeating: not at all 6. Feeling bad about yourself - or that you are a failure or have let yourself or your family down: not at all 7. Trouble concentrating on things, such as reading the newspaper or watching television: not at all 8. Moving or speaking so slowly that other people could have noticed. Or the opposite - being so fidgety or restless that you have been moving around a lot more than usual: not at all 9. Thoughts that you would be better off or of hurting yourself in some way: not at all Total score: 0 Depression Screening Interpretation: Negative Depression Screening Done: Yes Source: Developed by Drs. Nuno Licona, Yudy Carson, Michael Ching and colleagues, with an educational katharine from [employer]. Thrive Questionnaire Date Thrive assessed: 03/20/24 I am a: Patient What is your living situation today?: I have a steady place to live Within the past 12 months, did the food you bought not last and you didn't have the money to get more?: Never true Within the past 12 months, did you worry whether your food would run out before you got money to buy more?: Never true Do you have trouble paying for medicines?: No Do you have trouble getting transportation to medical appointments?: No Do you have trouble paying your heating and electricity bill?: No Do you have trouble taking care of your child, family member or friend?: No Do you have trouble with day-to-day activities such as bathing, preparing meals, shopping, managing finances, etc.?: No Are you currently unemployed and looking for a job?: No Are you interested in more education?: No Please select the resources that you would like help with: None Currently or been in a relationship where the following occur: No concerns reported THRIVE Score: 0 AUDIT C Alcohol Use Questionnaire (AUDIT-C) 1. How often do you have a drink containing alcohol?: Monthly or less 2. How many drinks containing alcohol do you have on a typical day when you are drinking?: 1 or 2 3. How often do you have six or more drinks on one occasion?: Never Total Score: 1 IAN-7 AMB Questionnaire IAN-7 Date IAN - 7 assessed: 03/20/24 Feeling nervous, anxious, or on edge: 0 = Not at all Not being able to stop or control worryin = Not at all Worrying too much about different things: 0 = Not at all Trouble relaxin = Not at all Being so restless that it is hard to sit still: 0 = Not at all Becoming easily annoyed or irritable: 0 = Not at all Feeling afraid as if something awful might happen: 0 = Not at all Total IAN-7 score (0-4 normal; 5-9 mild; 10-14 moderate; 15-21 severe): 0 Source: Developed by Drs. Nuno Licona, Yudy Carson, Michael Ching and colleagues, with an educational katharine from [employer]. IAN-7 Assessment Billing IAN-7 Assessment Tool: IAN-7 Assessment 98965 Physical exam (Primary Care) Tobacco/Smoking Status: Tobacco use Status Tobacco use date assessed 03/20/24 03/20/24 12:34 Patient Tobacco Use Status Never used Tobacco 03/20/24 12:34 Tobacco use type Cigarette 03/20/24 12:34 e-Cigarette/Vaping Use Never Used 03/20/24 12:34 PHQ-9: PHQ-9 Score PHQ-9: Total score 0 03/20/24 12:34 Depression Screening Interpretation: Negative Thrive Assessment: Date of Thrive Assessment Date Thrive assessed 03/20/24 03/20/24 12:34 Currently or been in a relationship where the following occur: No concerns reported Telehealth Telehealth Location of provider rendering services: practice address Location of patient: address on file Patient Identification confirmed using: Name, : Yes Telehealth method: voice only ([id number]) Patient verbally consented to treatment: Yes Patient verbally consented to billing insurance company: Yes Patient informed of any privacy concerns related to visit: Yes Minutes spent on Phone/Video with Pt.: 15 Coding Level of Care Code Tele Est Pt Level 3 (04913) Diagnoses Cough R05.9 Additional Codes IAN-7 Assessment Billing - IAN-7 Assessment Tool: IAN-7 Assessment 89087 ([id number]) Assessment & Plan Assessment & Plan (1) Cough: Code(s): R05.9 - Cough, unspecified Category: Medical Plan - Conduct chest x-ray and sinus x-rays to evaluate for any potential underlying causes of the persistent symptoms. - Continue current allergy management with the option to try Ale for possibly better symptom control, noting that Zyrtec may cause sedation. - Discuss exposure to respiratory infections, recommending precautions such as wearing masks due to potential RSV exposure. We discussed the potential for chronic sinusitis and persistent allergic rhinitis and the need for imaging studies (chest and sinus x-rays) to rule out any significant underlying conditions. I advised the patient to visit radiology to complete these tests at her earliest convenience. We reviewed the use of different antihistamines, highlighting that Claritin and Ale are generally non-sedating which might make Ale a preferable option if needed. We talked about medication management, noting the benign nature of the current medicines when used appropriately. I emphasized the importance of protective measures against respiratory infections, particularly due to her grandchildren?s recent illnesses. - Schedule and complete the chest x-ray and sinus x-rays at the hospital radiology department. - Consider using Ale if Zyrtec leads to sedation. - Continue precautions against respiratory infections, including wearing masks around children with respiratory symptoms. - Follow current allergy medication routine and monitor symptom changes. - Follow up on test results and any persistent or worsening symptoms. Orders: Orders XR sinus <3V Today R05.9 - Cough, unspecified XR chest 2V Today R05.9 - Cough, unspecified
== END 2024-03-20 15:48 | disposition home or self-care (01) ==
LOC: HO.HMCH 12:32
PROVIDERS: PCP Internal Medicine; Visit Provider Internal Medicine
DX: R05.9 Cough, unspecified (principal)

== ENCOUNTER → 2024-03-20 12:32 | Outpatient (BNVA) | payer MEDICARE, SELFPAY | PROVIDERS: PCP Internal Medicine; Visit Provider Internal Medicine | DX: R05.9 Cough, unspecified (principal) | CPT/HCPCS: 96127 ==

== ENCOUNTER 2024-03-25 11:55 | Outpatient (REF) | payer MEDICARE, MEDICAID, SELFPAY ==
--- NOTE | ~2024-03-25 | XR_ITS ---
EXAMINATION: XR CHEST 2 VIEWS HISTORY: R05.9 - Cough, unspecified COMPARISON: There are no prior studies for comparison. FINDINGS: PA and lateral views of the chest are submitted. The lungs are expanded and clear. There is no pleural effusion, pneumothorax, or pulmonary vascular congestion. The heart is normal in size. There is degenerative disc disease of the spine. XR/XR chest 2V IMPRESSION: Clear lungs. Electronically signed by: Nuno Hayes MD 03/26/2024 08:16 AM [facility]
--- NOTE | ~2024-03-25 | XR_ITS ---
EXAMINATION: XR SINUSES CLINICAL INFORMATION: R05.9 - Cough, unspecified COMPARISON: None available. TECHNIQUE: 3 views of the sinuses were obtained. FINDINGS: There is moderate to large air-fluid level seen in bilateral maxillary sinuses. Rest of the paranasal sinuses are well-aerated and clear. The mastoid sinuses clear as well. No bony anomaly is seen. Maxillofacial and nasal bones are normal. The bony orbits are normal. XR/XR sinus <3V IMPRESSION: Acute bilateral maxillary sinusitis. Electronically signed by: Pj Swan MD 03/25/2024 04:28 PM EST
== END 2024-03-25 11:56 | disposition home or self-care (01) ==
LOC: HO.XRAY 11:55
PROVIDERS: PCP Internal Medicine; Visit Provider Internal Medicine
DX: R05.9 Cough, unspecified (principal)
CPT/HCPCS: 70210; 71046

== ENCOUNTER → 2024-03-25 12:01 | Outpatient (BNV) | payer MEDICARE, MEDICAID, SELFPAY | PROVIDERS: PCP Internal Medicine; Visit Provider Radiology Diagnostic Radiology | DX: R05.9 Cough, unspecified (principal) | CPT/HCPCS: 70210; 71046 ==

== ENCOUNTER 2024-05-27 08:24 | Outpatient (AMB) | payer MEDICARE, MEDICAID, SELFPAY ==
--- NOTE | 2024-05-27 08:41 | MHC.PC.OV ---
Vital Signs 05/27/24 08:42 Height 5 ft 6.5 in Weight 129 lb BMI 20.5 BP 122/74 Blood Pressure Location Lt brachial Position Sitting Pulse 99 Pulse Source Pulse Oximeter Temp 97.1 F Temp Source Temporal Artery Scan Pulse Oximetry (%) 100 Oxygen Delivery Method Room Air Intake Visit Reasons: Allergies Allergies Echinacea Allergy (Intermediate, Verified 05/27/24 08:48) rash fexofenadine [From Ale] Allergy (Intermediate, Verified 05/27/24 08:48) Rash isopropyl alcohol Allergy (Intermediate, Verified 05/27/24 08:48) rash Sulfa (Sulfonamide Antibiotics) Allergy (Mild, Verified 05/27/24 08:48) Rash ciprofloxacin [From Cipro] Adverse Reaction (Severe, Verified 05/27/24 08:48) leg cramps metronidazole Adverse Reaction (Mild, Verified 05/27/24 08:48) Abdominal Pain fragrance floral Allergy (Intermediate, Uncoded 05/27/24 09:08) congestion and BEDOYA Tobacco use date assessed: 05/27/24 Dental Screening Dental Screen Date: 05/27/24 Did you have a dental visit in the last 12 months?: Yes Did you have a dental problem in the last 6 months where you did not have access to dental care?: No Was dental information given to patient?: Patient has dentist HPI Allergies HPI Details problem with fragrance and having BEDOYA PFSH Medical History Annual physical exam History of ulcerative colitis Kina infection COVID-19 virus infection Lateral epicondylitis of elbow Onychomycosis Shoulder fracture, right Surgical History H/O eye surgery Ulcerative colitis Family History Father CAD (coronary artery disease), Onset Age: 64 Brother Cancer of eye, Onset Age: 67 Skin cancer, Onset Age: 40 Sister Leukemia, Onset Age: 55 MDS (myelodysplastic syndrome), Onset Age: 51 Skin cancer, Onset Age: 45 Mother Lymphoma, Onset Age: 84 CAD (coronary artery disease), Onset Age: 66 Daughter Substance abuse Depression Social History Housing: House Alcohol intake: current Comment: 2 x a month 1 drink Patient Tobacco Use Status: Never used Tobacco Tobacco use type: Cigarette e-Cigarette/Vaping Use: Never Used Second Hand Smoke Exposure: No Current occupational status: unemployed Cognitive needs: No Hearing needs: No Vision needs: No Questionnaire PHQ-9 Over the last 2 weeks, how often have you been bothered by any of the following problems? 1. Little interest or pleasure in doing things: not at all 2. Feeling down, depressed, or hopeless: not at all 3. Trouble falling or staying asleep, or sleeping too much: not at all 4. Feeling tired or having little energy: not at all 5. Poor appetite or overeating: not at all 6. Feeling bad about yourself - or that you are a failure or have let yourself or your family down: not at all 7. Trouble concentrating on things, such as reading the newspaper or watching television: not at all 8. Moving or speaking so slowly that other people could have noticed. Or the opposite - being so fidgety or restless that you have been moving around a lot more than usual: not at all 9. Thoughts that you would be better off or of hurting yourself in some way: not at all Total score: 0 Depression Screening Interpretation: Negative Depression Screening Done: Yes Source: Developed by Drs. Nuno Licona, Yudy Carson, Michael Ching and colleagues, with an educational katharine from [employer]. Thrive Questionnaire Date Thrive assessed: 05/27/24 I am a: Patient What is your living situation today?: I have a steady place to live Within the past 12 months, did the food you bought not last and you didn't have the money to get more?: Never true Within the past 12 months, did you worry whether your food would run out before you got money to buy more?: Never true Do you have trouble paying for medicines?: No Do you have trouble getting transportation to medical appointments?: No Do you have trouble paying your heating and electricity bill?: No Do you have trouble taking care of your child, family member or friend?: No Do you have trouble with day-to-day activities such as bathing, preparing meals, shopping, managing finances, etc.?: No Are you currently unemployed and looking for a job?: No Are you interested in more education?: No Please select the resources that you would like help with: None Currently or been in a relationship where the following occur: No concerns reported THRIVE Score: 0 AUDIT C Alcohol Use Questionnaire (AUDIT-C) 2. How many drinks containing alcohol do you have on a typical day when you are drinking?: 1 or 2 3. How often do you have six or more drinks on one occasion?: Never Total Score: 0 IAN-7 AMB Questionnaire IAN-7 Date IAN - 7 assessed: 05/27/24 Feeling nervous, anxious, or on edge: 0 = Not at all Not being able to stop or control worryin = Not at all Worrying too much about different things: 0 = Not at all Trouble relaxin = Not at all Being so restless that it is hard to sit still: 0 = Not at all Becoming easily annoyed or irritable: 0 = Not at all Feeling afraid as if something awful might happen: 0 = Not at all Total IAN-7 score (0-4 normal; 5-9 mild; 10-14 moderate; 15-21 severe): 0 Source: Developed by Drs. Nuno Licona, Yudy Carson, Michael Ching and colleagues, with an educational katharine from [employer]. IAN-7 Assessment Billing IAN-7 Assessment Tool: IAN-7 Assessment 41705 Physical exam (Primary Care) Vital Signs: Last Vital Signs Temp 97.1 F 05/27/24 08:42 Pulse 99 05/27/24 08:42 BP 122/74 05/27/24 08:42 Pulse Ox 100 05/27/24 08:42 Oxygen Delivery Method Room Air 05/27/24 08:42 BMI result Body Mass Index 20.5 Tobacco/Smoking Status: Tobacco use Status Tobacco use date assessed 05/27/24 05/27/24 08:48 Patient Tobacco Use Status Never used Tobacco 05/27/24 08:42 Tobacco use type Cigarette 05/27/24 08:42 e-Cigarette/Vaping Use Never Used 05/27/24 08:42 PHQ-9: PHQ-9 Score PHQ-9: Total score 0 05/27/24 09:10 Depression Screening Interpretation: Negative Thrive Assessment: Date of Thrive Assessment Date Thrive assessed 05/27/24 05/27/24 08:48 Currently or been in a relationship where the following occur: No concerns reported Const General: alert; No acute distress Eyes Conjunctivae: conjunctivae normal Resp Auscultation: clear to auscultation bilaterally Cardio Rate: regular rate Rhythm: regular rhythm GI Inspection: Yes normal to inspection Extrem General: Yes normal to inspection and No edema Coding Level of Care Code Est Pt Level 3 (06148) Diagnoses Allergy T78.40XA Near syncope R55 Additional Codes IAN-7 Assessment Billing - IAN-7 Assessment Tool: IAN-7 Assessment 71985 ([id number]) Assessment & Plan Assessment & Plan (1) Allergy: Code(s): T78.40XA - Allergy, unspecified, initial encounter Category: Medical (2) Near syncope: Code(s): R55 - Syncope and collapse Category: Medical Plan History of Present Illness The patient is a 68-year-old female presenting with acute lightheadedness. Recently, these episodes have become more frequent, specifically occurring when she rises to a standing position. About a month ago, while shopping, she experienced a significant episode described as hearing a loud noise in her ears followed by a near fainting sensation, which she managed by squatting. She also experienced an episode while driving, prompting her to insole tack puller hand for safety. Her medical history includes osteopenia and ulcerative colitis, for which she underwent a proctocolectomy. Her history of sinusitis was initially treated with a course of antibiotics; however, symptoms of sinusitis quickly recurred after cessation of treatment. She has a documented negative reaction to the antihistamine fexofenadine and reported an allergic reaction with Ale. She currently utilizes loratadine for the management of allergic rhinitis and expresses a preference to avoid floral fragrances as they exacerbate her allergic symptoms. Recent sinus X-rays confirmed maxillary sinus inflammation, while a chest X-ray showed clear lungs. Health Maintenance - Mammogram up-to-date as of July 2023 - Last blood work in July 2023, revealing normal blood count, electrolytes, renal function, cholesterol, and liver function Social History - Exercises personal caution regarding allergies, specifically avoiding floral fragrances - Recently experienced significant inconvenience and dissatisfaction with the automated and impersonal system for managing appointments Review of Systems - Head/Ears/Nose/Throat: Reports incidents of lightheadedness when standing, reports sinus issues. - Cardiovascular: Denies palpitations or chest pain. - Respiratory: Denies breathing issues. - Neurological: Reports acute episode of near syncope, denies numbness or weakness. - Gastrointestinal: Denies gastrointestinal symptoms since proctocolectomy with controlled bowel function through occasional Loperamide use. Physical Exam - General- Oxygenation noted to be within normal parameters. - Cardiovascular- Heart rate on examination was slightly elevated. - Musculoskeletal- Toe dorsiflexion bilateral performed without noted pain. - Neurological- Strength assessed with hand squeeze, no deficits noted. - ENT- Oral inspection unremarkable, mentions of discomfort upon exposure to certain fragrances. Results - Imaging: Recent sinus X-rays demonstrated maxillary sinus inflammation. - Recent chest X-ray showing clear lungs. Plan For management of lightheadedness, I will initiate several evaluations, including ordering a blood panel and an EKG to investigate potential etiology. Increasing fluid consumption has been recommended to counter potential dehydration and alleviate symptoms. In case blood test results are normal and symptoms continue, reconsideration of additional imaging may occur. For sinus symptoms, if they remain problematic post-antibiotic, a referral to ENT will be made official. The patient will continue using Claritin for allergy management, and introduction of saline nasal rinses was suggested. Monitoring for any exacerbations or the appearance of new symptoms remains essential. Patient was informed and verbally consented to the use of an ambient scribe for clinic note documentation during this visit. Discussion Notes During our discussion, I explained that the patient's recent episodes of lightheadedness are concerning, prompting the need for further investigation via blood work and an EKG to identify any potential systemic causes such as dehydration or cardiac irregularities. We reviewed current allergy management, emphasizing avoidance of floral fragrances and continuation of Claritin, with consideration for further ENT evaluation if her sinus symptoms persist. I stressed the importance of hydration and outlined the tests to be performed. All current plans, as well as reasons to alert me if symptoms worsen, were reviewed thoroughly with the patient. Patient Instructions - Increase water intake to ensure adequate daily hydration. - Perform saline nasal rinses to help alleviate sinus symptoms. - Continue Claritin as per previous regimen for allergy management. - Obtain ordered blood work and EKG to assess for any underlying conditions contributing to symptoms. - Return if experiencing increased frequency or intensity of lightheadedness, or if new symptoms develop. - Appointments can be made for alternative ENT consultations if current symptoms persist despite routine management. Orders: Orders Complete Blood Count Auto Diff Today R55 - Syncope and collapse Comprehensive Met. Panel Today R55 - Syncope and collapse Vitamin B12 and Folate Today R55 - Syncope and collapse Lipid Panel Today E78.00 - Pure hypercholesterolemia, unspecified, R55 - Syncope and collapse UA CC w/rflx Micro + Cult Today R30.0 - Dysuria, R55 - Syncope and collapse Free T4 (Free Thyroxine) Today R55 - Syncope and collapse Thyroid Stimulating Hormone Today R55 - Syncope and collapse Vitamin D 25-OH Total Today R55 - Syncope and collapse Magnesium Today R55 - Syncope and collapse ECG 12 lead EKG Today R55 - Syncope and collapse Referrals Ear/Nose/Throat Referral J32.9 - Chronic sinusitis, unspecified
[2024-05-27 08:42] VITALS: BP 122/74; PULSE 99; TEMP 36.2; O2SAT 100; BMI 20.5
--- OUTSIDE RECORDS SUMMARY | 2024-05-27 08:49 | XMS_ITS | Encounter Summary ---
Author Organization [facility] Address [address] [place] [address] [place] [address] Phone Care Team Providers Care Microsoft Exchange Architect Name Role Phone Bright Cain MD Primary Care Provider +1- [phone] Reason for Referral * Physical Therapy (Routine) - Closed Specialty Diagnoses / Procedures Referred By Contac t Referred To Contact Physical Therapy Diagnoses Encounter for rehabilitation System, Provider Not In, [facility] [id number] [place] [address] Referral ID Status Reason Start Date Expiration Date Visits Re quested Visits Authorized [id number] Closed 08/08/2017 12/31/2017 12 12 Encounter Details Date Type Department Care Team (Latest Contact Info) Description 08/08/2017 Transcribe Orders [facility] [address] [place] [address] Jolly Laurent DO Encounter for rehabilitation (Primary Dx) Social History Tobacco Use Types Packs/Day Years Used Date Smoking Tobacco: Never Assessed Sex and Gender Information Value Date Recorded Sex Assigned at Not on file Gender Identity Not on file Sexual Orientation Not on file documented as of this encounter Plan of Treatment Not on file documented as of this encounter Procedures Procedure Name Priority Date/Time Associated Diagnosis Comments AMB REFERRAL TO [facility] PHYSICAL THERAPY Routine 08/22/2017 12:17 PM EDT Encounter for rehabilitation documented in this encounter Results * Ambulatory referral to [facility] Physical Therapy (08/22/2017 12:17 PM EDT) Provider Not In System PhD [facility] REFER RALS documented in this encounter Visit Diagnoses Diagnosis Encounter for rehabilitation- Primary documented in this encounter Care Teams Microsoft Exchange Architect Relationship Specialty Start Date End Date Bright Cain MD [address] [place], [place] [id number] PCP - General Internal Medicine 07/22/17 documented as of this encounter Additional Source Comments The information contained in this document represents components of the legal health record. It is not the complete legal health record.[facility]
--- OUTSIDE RECORDS SUMMARY | 2024-05-27 08:49 | XMS_ITS | Encounter Summary ---
Author Organization [facility] Address [address] [place] [address] Phone Care Team Providers Care Hospital Plan Administrator Name Role Phone Bright Cain MD Primary Care Provider +1- [phone] Encounter Details Date Type Department Care Team (Late st Contact Info) Description 08/08/2017 Transcribe Orders [facility] [address] [place] [address] Jolly Laurent DO Social History Tobacco Use Types Packs/Day Years Used Date Smoking Tobacco: Never Assessed Sex and Gender Information Value Date Recorded Sex Assigned at Not on file Gender Identity Not on file Sexual Orientation Not on file documented as of this encounter Plan of Treatment Not on file documented as of this encounter Visit Diagnoses Not on filedocumented in this encounter Care Teams Hospital Plan Administrator Relationship Specialty Start Date End Date Bright Cain MD [address] [place] [address] PCP - General Internal Medicine 07/22/17 documented as of this encounter Additional Source Comments The information contained in this document represents components of the legal health record. It is not the complete legal health record.[facility]
--- OUTSIDE RECORDS SUMMARY | 2024-05-27 08:49 | XMS_ITS | Clinical Summary ---
Author Organization [facility] Address [address] [place] [address] Phone Care Team Providers Care Supervisor Plasma Name Role Phone Bright Cain MD Primary Care Provider +1- [phone] Social History Tobacco Use Types Packs/Day Years Used Date Smoking Tobacco: Never Assessed Education Answer Date Recorded Are you interested in more education? Not on renetta e 06/29/2022 Are you concerned about learning? Not on file 06/29/2022 No 06/29/2022 No 06/29/2022 Digital Access Answer Date Recorded No 07/31/2022 No 07/31/2022 No 07/31/2022 Reliable internet access at home? Not on file 07/31/2022 Device with a working camera? Not on file Sex and Gender Information Value Date Recorded Sex Assigned at Not on file Gender Identity Not on file Sexual Orientation Not on file Plan of Treatment Health Maintenance Due Date Last Done Comments Adult Td,Tdap Booster 1956 LIPID PANEL 1956 DEPRESSION SCREENING 1968 SMOKING Hx and SMOKELESS TOB ACCO SCREENING 1969 HEPATITIS B SCREENING 1974 HEPATITIS C SCREENING 1974 MAMMOGRAM 1996 COLOGUARD 2001 COLONOSCOPY 2001 COLORECTAL CANCER SCREENING 2001 FIT TEST 2001 FOBT 2001 SIGMOIDOSCOPY 2001 VIRTUAL COLONOSCOPY 2001 PNEUMOCOCCAL VACCINES (50+ y ears) (1 of 1 - PCV) 2006 ZOSTER VACCINES (1 of 2) 2006 OSTEOPOROSIS SCREENING INITI AL (ONE-TIME) 2021 INFLUENZA VACCINE (#1) 2023 COVID-19 VACCINE ( - 2023-2 5 season) 2023 RSV VACCINE (1 - 1-dose 75+ series) 11/03/2031 HEPATITIS A VACCINES Aged Out No long er eligible based on patient's age to complete this topic HEPATITIS B VACCINES Aged Out No long er eligible based on patient's age to complete this topic HIB VACCINES Aged Out No longer eligi ble based on patient's age to complete this topic MENINGOCOCCAL VACCINES (ACWY) Aged Out No longer eligible based on patient's age to complete this topic Medical Devices Not on file Care Teams Supervisor Plasma Relationship Specialty Start Date End Date Bright Cain MD [address] [place] [address] PCP - General Internal Medicine 07/22/17 Additional Source Comments The information contained in this document represents components of the legal health record. It is not the complete legal health record.[facility]
== END 2024-05-27 09:29 | disposition home or self-care (01) ==
LOC: HO.HMCH 08:25
PROVIDERS: PCP Internal Medicine; Visit Provider Internal Medicine
DX: T78.40XA Allergy, unspecified, initial encounter (principal); R55 Syncope and collapse

== ENCOUNTER → 2024-05-27 08:24 | Outpatient (BNVA) | payer MEDICARE, MEDICAID, SELFPAY | PROVIDERS: PCP Internal Medicine; Visit Provider Internal Medicine | DX: R55 Syncope and collapse (principal); T78.40XA Allergy, unspecified, initial encounter | CPT/HCPCS: 96127; 99212 ==

== ENCOUNTER → 2024-07-07 07:59 | Outpatient (REF) | payer MEDICARE, MEDICAID, SELFPAY ==
--- OUTSIDE RECORDS SUMMARY | 2024-07-07 08:02 | XMS_ITS | Encounter Summary ---
Author Organization [facility] Address [address] [place] [address] Phone Care Team Providers Care Audience Coordinator Name Role Phone Bright Cain MD Primary Care Provider +1- [phone] Reason for Referral * Physical Therapy (Routine) - Closed Specialty Diagnoses / Procedures Referred By Contac t Referred To Contact Physical Therapy Diagnoses Encounter for rehabilitation System, Provider Not In, [facility] [id number] [place] [address] Referral ID Status Reason Start Date Expiration Date Visits Re quested Visits Authorized [id number] Closed 08/08/2017 12/31/2017 12 12 Encounter Details Date Type Department Care Team (Latest Contact Info) Description 08/08/2017 Transcribe Orders [facility] [address] [place] [address] Jolly Laurent DO Encounter for rehabilitation (Primary [...] Date/Time Associated Diagnosis Comments AMB REFERRAL TO [facility] PHYSICAL THERAPY Routine 08/22/2017 12:17 PM EDT Encounter for rehabilitation documented in this encounter Results * Ambulatory referral to [facility] Physical Therapy (08/22/2017 12:17 PM EDT) Provider Not In System PhD [facility] REFER RALS documented in this encounter Visit Diagnoses Diagnosis Encounter for rehabilitation- Primary documented in this encounter Care Teams Audience Coordinator Relationship Specialty Start Date End Date Bright Cain MD [address] [place], [place] [phone] PCP - General Internal Medicine 07/22/17 documented as of this encounter Additional Source Comments The information contained in this document represents components of the legal health record. It is not the complete legal health record.[facility]
--- OUTSIDE RECORDS SUMMARY | 2024-07-07 08:02 | XMS_ITS | Encounter Summary ---
Author Organization [facility] Address [address] [place] [address] Phone Care Team Providers Care Soft Top Installer Name Role Phone Bright Cain MD Primary Care Provider +1- [phone] Encounter Details Date Type Department Care Team (Late st Contact Info) Description 08/08/2017 Transcribe Orders [facility] [address] [place] [address] Jolly Luarent DO Social History Tobacco Use Types Packs/Day Years Used Date Smoking Tobacco: Never Assessed Sex and Gender Information Value Date Recorded Sex Assigned at Not on file Gender Identity Not on file Sexual Orientation Not on file documented as of this encounter Plan of Treatment Not on file documented as of this encounter Visit Diagnoses Not on filedocumented in this encounter Care Teams Soft Top Installer Relationship Specialty Start Date End Date Bright Cain MD [address] [place] [address] PCP - General Internal Medicine 07/22/17 documented as of this encounter Additional Source Comments The information contained in this document represents components of the legal health record. It is not the complete legal health record.[facility]
--- OUTSIDE RECORDS SUMMARY | 2024-07-07 08:02 | XMS_ITS | Clinical Summary ---
Author Organization [facility] Address [address] [place] [address] Phone Care Team Providers Care Administrative Officer Name Role Phone Bright Cain MD Primary Care Provider +1- [phone] Social History Tobacco Use Types Packs/Day Years [...] Medical Devices Not on file Care Teams Administrative Officer Relationship Specialty Start Date End Date Bright Cain MD [address] [place] [address] PCP - General Internal Medicine 07/22/17 Additional Source Comments The information contained in this document represents components of the legal health record. It is not the complete legal health record.[facility]
[2024-07-07 08:20] LABS: MANUAL DIFF FLAG NO
--- NOTE | 2024-07-07 08:32 | ECG_ITS ---
Test Reason : SYNCOPE AND COLLAPSE Blood Pressure : */* mmHG Vent. Rate : 71 BPM Atrial Rate : 71 BPM P-R Int : 186 ms QRS Dur : 92 ms QT Int : 386 ms P-R-T Axes : 75 68 63 degrees QTcB Int : 419 ms Sinus rhythm with Premature atrial complexes Otherwise normal ECG When compared with ECG of 19-Jul-2023 10:54, Premature atrial complexes are now Present Referred By: Shikha Fleming Electronically Signed By: ALAN ROTH
[2024-07-07 08:48] LABS: Basophils Absolute Auto 0.1 X10*3/uL (0.0-0.2); Basophils Percent Auto 0.8 % (0-2); Eosinophils Absolute Auto 0.3 X10*3/uL (0.0-0.4); Eosinophils Percent Auto 4.2 % (0-4); Hematocrit 39.5 % (37.0-47.0); Hemoglobin 13.1 g/dl (12.0-16.0); Imm Gran Abs Auto 0.01 X10*3/uL (0.00-0.03); Imm Gran Pct Auto 0.2 % (0.0-0.4); Lymphocytes Absolute Auto 1.6 X10*3/uL (1.2-4.9); Lymphocytes Percent Auto 26.3 % (20-40); Mean Corpuscular HGB Conc 33.2 g/dl (31.0-35.0); Mean Corpuscular Hemoglobin 29.4 pg (27.0-33.0); Mean Corpuscular Volume 88.6 fL (80.0-98.0); Mean Platelet Volume 9.6 fL (9.4-12.3); Monocytes Absolute Auto 0.6 X10*3/uL (0.1-1.2); Monocytes Percent Auto 9.4 % (2-11); Neutrophils Absolute Auto 3.7 x10*3/uL (2.0-8.3); Neutrophils Percent Auto 59.1 % (45-73); Platelet Count 309 X10*3/uL (160-400); Red Blood Count 4.46 X10*6/uL (4.20-5.50); Red Cell Distribution Width 14.1 % (11.0-16.0); White Blood Count 6.2 X10*3/uL (4.8-10.8)
[2024-07-07 08:55] LABS: Appearance Urine Clear; Color Urine Yellow; Glucose Urine UA Negative (Negative); Leukocyte Esterase Urine Trace (Negative); Nitrite Urine Negative (Negative); Specific Gravity - Urine 1.015 (1.005-1.025); UMIC TRIGGER UACC YES; Urine Blood Negative (Negative); Urine Ketones Negative (Negative); Urine Protein Negative (Neg-Trace)
[2024-07-07 09:01] LABS: Bacteria Urine None Seen (None Seen); Hyaline Casts Urine 0-2 /LPF (0-2); RBC Urine 0-2 /HPF (0-2); Squamous Epithelial Cell Urine 0-2 /HPF (0-2); WBC Urine 0-5 /HPF (0-5)
[2024-07-07 09:17] LABS: Alanine Aminotransferase 23 U/L (0-31); Albumin Level 4.1 g/dL (3.5-5.0); Alkaline Phosphatase 68 U/L (39-117); Anion Gap 13 (12-20); Aspartate Amino Transferase 26 U/L (5-31); Bilirubin Total 0.4 mg/dL (0.0-1.0); Blood Urea Nitrogen 17 mg/dL (9-16); Calcium 9.2 mg/dL (8.4-10.2); Carbon Dioxide 24 mmol/L (22-29); Chloride 107 mmol/L (96-108); Cholesterol 198 mg/dL (<200); Estimated Glomerular Filt Rate > 60; Glucose Random 90 mg/dL (60-115); Sodium 140 mmol/L (135-145); Total Protein 7.7 g/dL (6.5-8.0); Triglycerides 86 mg/dL (<150)
[2024-07-07 09:39] LABS: Folate 10.7 ng/mL (> or = 4.0); Vitamin B12 535 pg/mL (200-900)
[2024-07-07 09:43] LABS: Free T4 (Free Thyroxine) 0.87 ng/dL (0.71-1.85); Thyroid Stimulating Hormone 1.34 uIU/mL (0.32-4.0); Vitamin D 25-OH Total 68.2 ng/mL (>30)
[2024-07-07 10:01] LABS: HDL Cholesterol 69 mg/dL (>40); LDL Cholesterol Calculated 112 mg/dL (<100)
== END ==
LOC: HO.CARD 07:59
PROVIDERS: PCP Internal Medicine; Visit Provider Internal Medicine
DX: E78.00 Pure hypercholesterolemia, unspecified (principal); R55 Syncope and collapse; R30.0 Dysuria
CPT/HCPCS: 36415; 80053; 80061; 81001; 81003; 82306; 82607; 82746; 83735; 84439; 84443; 85025; 93005

== ENCOUNTER → 2024-07-07 08:32 | Outpatient (BNV) | payer MEDICARE, MEDICAID, SELFPAY | PROVIDERS: PCP Internal Medicine; Visit Provider Internal Medicine | DX: I49.1 Atrial premature depolarization (principal) | CPT/HCPCS: 93010 ==

== ENCOUNTER 2024-07-20 08:29 | Outpatient (REF) | payer MEDICARE, MEDICAID, SELFPAY ==
--- OUTSIDE RECORDS SUMMARY | 2024-07-20 08:36 | XMS_ITS | Encounter Summary ---
Author Organization [facility] Address [address] [place] [id number] Phone Care Team Providers Care Operating Cost Clerk Name Role Phone Bright Cain MD Primary Care Provider [phone]- [phone] Reason for Referral * Physical Therapy (Routine) - Closed Specialty Diagnoses / Procedures Referred By Contac t Referred To Contact Physical Therapy Diagnoses Encounter for rehabilitation System, Provider Not In, PhD [address] [address] Phone: tel: Referral ID Status Reason Start Date Expiration Date Visits Re quested Visits Authorized [id number] Closed 08/08/2017 12/31/2017 12 12 Encounter Details Date Type Department Care Team (Latest Contact Info) Description 08/08/2017 Transcribe Orders [facility] [address] [place] [address] Jolly Laurent DO Encounter for rehabilitation (Primary Dx) Social History Tobacco Use Types Packs/Day Years Used Date Smoking Tobacco: Never Assessed Comments Unknown Sex and Gender Information Value Date Recorded Sex Assigned at Not on file Legal Sex Female 12:59 PM EDT Gender Identity Not on file Sexual Orientation Not on file documented as of this encounter Plan of Treatment Not on file documented as of this encounter Procedures Procedure Name Priority Date/Time Associated Diagnosis Comments AMB REFERRAL TO [facility] PHYSICAL THERAPY Routine 08/22/2017 12:17 PM EDT Encounter for rehabilitation documented in this encounter Results * Ambulatory referral to [facility] Physical Therapy (08/22/2017 12:17 PM EDT) us Provider Not In System PhD AMB [facility] REFERRALS Fin al Result documented in this encounter Visit Diagnoses Diagnosis Encounter for rehabilitation- Primary documented in this encounter Care Teams Operating Cost Clerk Relationship Specialty Start Date End Date Bright Cain MD [address] [place] [id number] PCP - General Internal Medicine 07/22/17 documented as of this encounter Additional Source Comments The information contained in this document represents components of the legal health record. It is not the complete legal health record.[facility]
--- OUTSIDE RECORDS SUMMARY | 2024-07-20 08:36 | XMS_ITS | Encounter Summary ---
Author Organization [facility] Address [address] [place] [phone] Phone Care Team Providers Care Location Director Name Role Phone Bright Cain MD Primary Care Provider [phone]- [phone] Encounter Details Date Type Department Care Team (Late st Contact Info) Description 08/08/2017 Transcribe Orders [facility] [address] [place] [address] [place] [address] Jolly Laurent DO Social History Tobacco Use [...] on filedocumented in this encounter Care Teams Location Director Relationship Specialty Start Date End Date Bright Cain MD [address] [place] [id number] PCP - General Internal Medicine 07/22/17 documented as of this encounter Additional Source Comments The information contained in this document represents components of the legal health record. It is not the complete legal health record.[facility]
== END 2024-07-20 08:30 | disposition home or self-care (01) ==
LOC: HO.MAMMO 08:29
PROVIDERS: PCP Internal Medicine; Visit Provider Internal Medicine
DX: Z12.31 Encounter for screening mammogram for malignant neoplasm of breast (principal)
CPT/HCPCS: 77063; 77067; 96127; 99397

== ENCOUNTER → 2024-07-20 08:32 | Outpatient (BNV) | payer MEDICARE, MEDICAID, SELFPAY | PROVIDERS: PCP Internal Medicine; Visit Provider Internal Medicine | DX: Z12.31 Encounter for screening mammogram for malignant neoplasm of breast (principal) | CPT/HCPCS: 77063; 77067 ==

== ENCOUNTER 2024-07-20 09:20 | Outpatient (AMB) | payer MEDICARE, SELFPAY ==
[2024-07-20 09:23] VITALS: BP 112/72; PULSE 75; O2SAT 99; BMI 20.5
--- NOTE | 2024-07-20 09:23 | MHC.PC.OV ---
Vital Signs 07/20/24 09:23 Height 5 ft 6.5 in Weight 129 lb BMI 20.5 BP 112/72 Blood Pressure Location Lt brachial Position Sitting Pulse 75 Pulse Source Pulse Oximeter Pulse Oximetry (%) 99 Oxygen Delivery Method Room Air Intake Visit Reasons: PE Allergies Echinacea Allergy (Intermediate, Verified 07/20/24 09:24) rash isopropyl alcohol Allergy (Intermediate, Verified 07/20/24 09:24) rash Sulfa (Sulfonamide Antibiotics) Allergy (Mild, Verified 07/20/24 09:24) Rash ciprofloxacin [From Cipro] Adverse Reaction (Severe, Verified 07/20/24 09:24) leg cramps metronidazole Adverse Reaction (Mild, Verified 07/20/24 09:24) Abdominal Pain fragrance floral Allergy (Intermediate, Uncoded 07/20/24 09:24) congestion and BEDOYA Medication List - Last Reconciled 07/20/24 by Shikha Fleming MD diphenoxylate-atropine 2.5-0.025 mg (Lomotil) 1 tab PO BEDTIME PRN fexofenadine (Ale Allergy) 180 mg PO DAILY [Standard Process 1 cap PO 10XD] valacyclovir 1,000 mg PO DAILY Tobacco use date assessed: 05/27/24 Fall risk assessment: No Falls in past year Last assessed Fall Risk: 07/20/24 Dental Screening Dental Screen Date: 05/27/24 HPI PE HPI Details dizzy still, july 07 congested does sinus rinse,will be seeing ENT September [facility] hearing test . no colon - gets watery stool. pouchoscopy August 2024 [facility] History Annual physical exam History of ulcerative colitis Kina infection COVID-19 virus infection Lateral epicondylitis of elbow Onychomycosis Shoulder fracture, right Surgical History H/O eye surgery Ulcerative colitis Family History Father CAD (coronary artery disease), Onset Age: 64 Brother Cancer of eye, Onset Age: 67 Skin cancer, Onset Age: 40 Sister Leukemia, Onset Age: 55 MDS (myelodysplastic syndrome), Onset Age: 51 Skin cancer, Onset Age: 45 Mother Lymphoma, Onset Age: 84 CAD (coronary artery disease), Onset Age: 66 Daughter Substance abuse Depression Social History (Updated 07/20/24 @ 09:52 by Shikha Fleming MD) Housing: House Alcohol intake: current Comment: 2 x a month 1-2 drink Patient Tobacco Use Status: Never used Tobacco Tobacco use type: Cigarette e-Cigarette/Vaping Use: Never Used Second Hand Smoke Exposure: No Current occupational status: unemployed Cognitive needs: No Hearing needs: No Vision needs: Yes Questionnaire PHQ-9 Over the last 2 weeks, how often have you been bothered by any of the following problems? 1. Little interest or pleasure in doing things: not at all 2. Feeling down, depressed, or hopeless: not at all 3. Trouble falling or staying asleep, or sleeping too much: not at all 4. Feeling tired or having little energy: not at all 5. Poor appetite or overeating: not at all 6. Feeling bad about yourself - or that you are a failure or have let yourself or your family down: not at all 7. Trouble concentrating on things, such as reading the newspaper or watching television: not at all 8. Moving or speaking so slowly that other people could have noticed. Or the opposite - being so fidgety or restless that you have been moving around a lot more than usual: not at all 9. Thoughts that you would be better off or of hurting yourself in some way: not at all Total score: 0 Depression Screening Interpretation: Negative Depression Screening Done: Yes 78832 - PHQ-9 Billing: Yes Source: Developed by Drs. Nuno Licona, Yudy Carson, Michael Ching and colleagues, with an educational katharine from [employer]. Thrive Questionnaire Date Thrive assessed: 05/27/24 I am a: Patient What is your living situation today?: I have a steady place to live Within the past 12 months, did the food you bought not last and you didn't have the money to get more?: I choose not to answer this question Within the past 12 months, did you worry whether your food would run out before you got money to buy more?: I choose not to answer this question Do you have trouble paying for medicines?: I choose not to answer this question Do you have trouble getting transportation to medical appointments?: I choose not to answer this question Do you have trouble paying your heating and electricity bill?: I choose not to answer this question Do you have trouble taking care of your child, family member or friend?: I choose not to answer this question Do you have trouble with day-to-day activities such as bathing, preparing meals, shopping, managing finances, etc.?: I choose not to answer this question Are you currently unemployed and looking for a job?: I choose not to answer this question Are you interested in more education?: I choose not to answer this question Please select the resources that you would like help with: None Currently or been in a relationship where the following occur: I choose not to answer THRIVE Score: 0 AUDIT C Alcohol Use Questionnaire (AUDIT-C) 1. How often do you have a drink containing alcohol?: Monthly or less Total Score: 1 IAN-7 AMB Questionnaire IAN-7 Date IAN - 7 assessed: 05/27/24 Feeling nervous, anxious, or on edge: 0 = Not at all Not being able to stop or control worryin = Not at all Worrying too much about different things: 0 = Not at all Trouble relaxin = Not at all Being so restless that it is hard to sit still: 0 = Not at all Becoming easily annoyed or irritable: 0 = Not at all Feeling afraid as if something awful might happen: 0 = Not at all Total IAN-7 score (0-4 normal; 5-9 mild; 10-14 moderate; 15-21 severe): 0 Source: Developed by Drs. Nuno Licona, Yudy Carson, Michael Ching and colleagues, with an educational katharine from [employer]. IAN-7 Assessment Billing IAN-7 Assessment Tool: IAN-7 Assessment 81735 Review of Systems Const Denies poor appetite and Denies weakness Eyes Denies no additional complaints ENT Reports Normal hearing present, Denies dizziness, Denies nasal congestion, Denies tinnitus and Denies sore throat Card Denies chest pain, Denies syncope, Denies rapid heart rate and Denies dyspnea Resp Denies cough and Denies dyspnea GI Denies change in stool character, Reports constipation, Denies diarrhea, Denies nausea and Denies vomiting Denies urinary frequency, Denies difficulty voiding and Denies dysuria Neuro Reports Normal hearing present, Denies confusion, Denies dizziness, Denies syncope and Denies weakness Psych Denies confusion Physical exam (Primary Care) Vital Signs: Last Vital Signs Pulse 75 07/20/24 09:23 BP 112/72 07/20/24 09:23 Pulse Ox 99 07/20/24 09:23 Oxygen Delivery Method Room Air 07/20/24 09:23 BMI result Body Mass Index 20.5 Tobacco/Smoking Status: Tobacco use Status Tobacco use date assessed 05/27/24 07/20/24 09:32 Patient Tobacco Use Status Never used Tobacco 07/20/24 09:32 Tobacco use type Cigarette 07/20/24 09:32 e-Cigarette/Vaping Use Never Used 07/20/24 09:32 PHQ-9: PHQ-9 Score PHQ-9: Total score 0 07/20/24 09:32 Depression Screening Interpretation: Negative Thrive Assessment: Date of Thrive Assessment Date Thrive assessed 05/27/24 07/20/24 09:32 Currently or been in a relationship where the following occur: I choose not to answer Const General: alert and awake; No confusion Orientation/consciousness: No confusion HENMT Head: Yes normocephalic Ears: external ears normal and TM's normal bilaterally Face and sinus: Yes normal facial exam Mouth: moist mucous membranes Throat: Yes tonsils normal Eyes Conjunctivae: conjunctivae normal Pupils: Equal, round and reactive pupils present and Pupil accommodation reflex normal Direct Ophthalmoscopy: normal light reflex Neck Neck: No lymphadenopathy Thyroid: Thyroid normal Chest Chest palpation & inspection: normal inspection of the chest Resp Effort & Inspection: normal respiratory effort and no audible wheezes Auscultation: clear to auscultation bilaterally, no crackles, no wheezes and lung sounds not diminished Cardio Rate: regular rate Rhythm: regular rhythm Peripheral pulses: radial pulses present and dorsalis pedis present GI Palpation (GI): no masses Auscultation: normal bowel sounds and normoactive bowel sounds Rectal Exam - Female: deferred Skin General skin exam: no rashes or lesions noted Rashes: no rashes Neuro General: deep tendon reflexes 2+ bilaterally and No confusion Cranial nerves: Yes Equal, round and reactive pupils present, Yes Midline tongue present, Yes Normal hearing present and Yes Ability to bilaterally elevate shoulders present Cognition (Neuro): normal cognition Gait exam (Neuro): Normal gait present Motor exam (neuro): 5/5 motor strength present throughout Deep tendon reflexes (DTR's): Right brachioradialis reflex intensity grade: 2+, Left brachioradialis reflex intensity grade: 2+, Right patellar reflex intensity grade: 2+ and Left patellar reflex intensity grade: 2+ Extrem General: No edema Coding Level of Care Code Est Pt Prev Care >65y(35707) Diagnoses Annual physical exam Z00.00 History of ulcerative colitis Z87.19 Osteopenia of spine M85.88 Osteopenia location: spine Near syncope R55 Hearing decreased H91.90 Urge incontinence N39.41 Thyroid enlargement E04.9 Additional Codes IAN-7 Assessment Billing - IAN-7 Assessment Tool: IAN-7 Assessment 98844 ([id number]) PHQ-9 - 83421 - PHQ-9 Billing: Yes ([id number]) Assessment & Plan Assessment & Plan (1) Annual physical exam: Code(s): Z00.00 - Encounter for general adult medical examination without abnormal findings Category: Medical Plan: Patient is advised to eat healthy, keep well hydrated, keep active and have adequate sleep. (2) History of ulcerative colitis: Comment: History of proctocolectomy, elisabeth pouchoscopy 07/2024 Code(s): Z87.19 - Personal history of other diseases of the digestive system Category: Medical Plan: Stable. pouchoscopy August 2024 [facility] (3) Osteopenia: Code(s): M85.80 - Other specified disorders of bone density and structure, unspecified site Category: Medical Qualifiers: Osteopenia location: spine Qualified Code(s): M85.88 - Other specified disorders of bone density and structure, other site Plan: Patient is reminded about bone density (4) Near syncope: Code(s): R55 - Syncope and collapse Category: Medical Plan: Workup has been negative (5) Hearing decreased: Code(s): H91.90 - Unspecified hearing loss, unspecified ear Category: Medical (6) Urge incontinence: Code(s): N39.41 - Urge incontinence Category: Medical (7) Thyroid enlargement: Code(s): E04.9 - Nontoxic goiter, unspecified Category: Medical Plan History of Present Illness The patient is a 68-year-old female presenting for a physical examination and wellness check. She reports a history of osteopenia and ulcerative colitis that led to a protocolectomy, eliminating the need for further colonoscopies. She recently underwent a mammogram and maintains routine blood work, with results indicating stable biochemical functions. She notes episodes of lightheadedness particularly when standing, with one instance occurring while driving, though she managed to pack puller safely. This has been a concern due to potential risks while driving with her grandchildren. Intermittent urinary incontinence has been discussed, with conservative management through exercises, while more invasive treatments have not been deemed necessary. Known to have herpes labialis, she manages this with episodic acyclovir. Her consistent involvement in physical activity and balance training at the [facility] highlights her commitment to maintaining her physical health, though an unexplained alteration in leg sensation had once been a concern, treated in the past with gabapentin. Health Maintenance - Mammogram performed in July 2024. - Bone density evaluation is due. - Normal recent blood work including CBC, electrolytes, renal function, liver function, and lipid profile. - Vitamin B12, vitamin D, folic acid, and thyroid within normal limits. - Negative urine test. - Recent shingles vaccination. - Previous pneumonia vaccination status needs confirmation. - Tetanus vaccination status needs confirmation. Social History - Engages in strength and balance exercises regularly at a [place]. - Actively manages own health with attended educational sessions. - Reports good hydration, conscious of dietary salt intake. Review of Systems - Constitutional: Denies fever, fatigue. - Cardiovascular: Denies chest pain. - Gastrointestinal: No current abdominal pain; history of ulcerative colitis with protocolectomy. - Genitourinary: Reports intermittent urinary incontinence. - Neurological: Reports episodes of lightheadedness; denies recent syncope; reports a history of leg nerve pain. - Dermatological: Manages herpes labialis with episodic medication. Physical Exam General: Cooperative, healthy appearing, comfortable, no acute distress and well developed Orientation: Patient oriented x3 Limitations: No limitations Head: Normal to inspection Ears: Hearing grossly normal bilaterally Nose: Normal external nose present Face and sinus: Normal facial exam Eyes: Appearance normal, both eyes and all related structures Neck: Normal visual inspection and Yes full ROM Respiratory: Normal respiratory effort and able to speak in complete sentences. Clear to auscultation bilaterally Cardiovascular: Regular rate and rhythm. Normal S1 and S2 GI: Normal to inspection. Soft to palpation and nontender Skin: No rashes or lesions noted Neuro: Patient oriented x3 Extremities: Normal to inspection Results - Labs: Normal CBC, electrolytes, renal function, blood glucose, liver function, lipid profile with LDL of 112, vitamin B12, vitamin D, folic acid, thyroid function. - Tests: Bone density is due; negative urine test. - Recent EKG with normal sinus rhythm. Plan The management plan involves coordinating further investigations and addressing health maintenance. An EEG has been ordered to investigate potential causes for her episodes of lightheadedness, and referrals to neurology and cardiology specialists are recommended. A thyroid ultrasound is planned due to previous requests. Urinary incontinence is managed conservatively; medication options such as Vesicare or Myrbetriq were discussed. Acyclovir has been prescribed for managing herpes labialis outbreaks. Bone density evaluation remains a priority, given her osteopenia history, and routine ENT assessments for sinus and possible vertigo issues are advised. Patient safety while driving under the condition of lightheadedness is stressed along with maintaining hydration and adequate dietary salt intake. Patient was informed and verbally consented to the use of an ambient scribe for clinic note documentation during this visit. Discussion Notes During the visit, I discussed with the patient the importance of managing her osteopenia with regular bone density evaluations and maintaining her recent mammogram schedule. For her concern of lightheadedness, I advised exploring neurology and cardiology evaluations and initiated an EEG to rule out neurological causes. Potential benefits and side effects of urinary incontinence medication were reviewed, and I noted her decision to consider them based on future developments. For herpes labialis, I confirmed the use of acyclovir as needed. I emphasized the need for maintaining hydration and cautious driving until a full evaluation of the lightheadedness is completed. Follow-ups with ENT will help further diagnose any ear-related contributors to dizziness. Patient Instructions - Schedule and complete bone density test. - Follow up with cardiology and neurology as planned. - Use acyclovir as needed for cold sore outbreaks. - Practice strength and balance exercises regularly. - Stay hydrated and ensure regular nutrient intake. - Be cautious driving and avoid if feeling lightheaded. - Inform me of any worsening symptoms or episodes. - Follow up with ENT specialist for vertigo assessment. - Monitor potential thyroid changes. Orders: Orders EEG ambulatory Today R55 - Syncope and collapse US thyroid Today E04.9 - Nontoxic goiter, unspecified XR DEXA axial skeleton Today M81.0 - Age-related osteoporosis without current pathological fracture, M85.88 - Other specified disorders of bone density and structure, other site Referrals Cardiology Referral R55 - Syncope and collapse Neurology Referral R55 - Syncope and collapse
== END 2024-07-20 10:25 | disposition home or self-care (01) ==
LOC: HO.HMCH 09:21
PROVIDERS: PCP Internal Medicine; Visit Provider Internal Medicine
DX: Z00.00 Encounter for general adult medical examination without abnormal findings (principal); Z87.19 Personal history of other diseases of the digestive system; M85.88 Other specified disorders of bone density and structure, other site; R55 Syncope and collapse; H91.90 Unspecified hearing loss, unspecified ear; N39.41 Urge incontinence; E04.9 Nontoxic goiter, unspecified

== ENCOUNTER 2024-08-27 08:28 | Outpatient (REF) | payer MEDICARE, MEDICAID, SELFPAY ==
--- NOTE | ~2024-08-27 | MM_ITS ---
EXAMINATION: DXA BONE DENSITY AXIAL HISTORY: M81.0 - Age-related osteoporosis without current pathological fracture TECHNIQUE: [employer] Dual energy absorptiometry (DEXA) of the lumbar spine, total left hip, and femoral neck was performed. COMPARISON: Comparison is made with the prior examination dated 07/18/2022. FINDINGS: The bone mineral density of the lumbar spine is 0.917, corresponding to a T-score of -2.1, and a Z-score of -0.2. This is indicative of osteopenia. This represents a BMD change of -5.3% compared to the prior exam. This is statistically significant. The bone mineral density of the left total hip is 0.776, corresponding to a T-score of -1.8, and a Z-score of -0.3. This is indicative of osteopenia. This represents a BMD change of -1.0% compared to the prior exam. This is not statistically significant. The bone mineral density of the left femoral neck is 0.765, corresponding to a T-score of -2.0, and a Z-score of -0.2. This is indicative of osteopenia. This represents a BMD change of 0.1% compared to the prior exam. FRACTURE RISK: The FRAX index suggests a ten year probability of major osteoporotic fracture of 16.7%, and of hip fracture 3.0%. MM/XR DEXA axial skeleton IMPRESSION: Based on bone mineral density, and according to World Health Organization (WHO) criteria, the diagnosis is consistent with osteopenia. All bone density values are in grams per centimeter squared (g/cm2). Statistically, 68% of repeat scans fall within 1 SD (+/- 0.010 g/cm2 for AP spine L1-L4) and 1 SD (+/- 0.012 g/cm2 for femur total) FRAX is a trademark of the [employer] [facility] Met[employer] Disease, a World Health Organization (WHO) Collaborating Center. Electronically signed by: Nuno Hayes MD 08/27/2024 11:42 AM EDT
--- NOTE | ~2024-08-27 | US_ITS ---
EXAMINATION: US THYROID CLINICAL INFORMATION: Goiter. COMPARISON: None available. TECHNIQUE: Linear transducer grayscale and color Doppler examination with attention to the region of the thyroid. FINDINGS: SIZE: Measurements of the thyroid lobes and nodules are given in sagittal, anteroposterior and transverse dimensions respectively. Right Thyroid Lobe: 6.2 x 2.4 x 2.5 cm, volume 19.6 mL. Parenchyma: The gland echotexture is homogeneous. Thyroid vascularity is normal. Left Thyroid Lobe: 5.1 x 1.5 x 1.8 cm, volume 7.1 mL. Parenchyma: The gland echotexture is homogeneous. Thyroid vascularity is normal. Isthmus: 0.2 cm in maximum AP dimension. Estimated total number of nodules greater than or equal to 1 cm: 3. 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 Location: Right lower pole. Size: 2.7 x 1.9 x 2.0 cm, volume 5.4 mL. Nodule characteristics: Composition: Solid/almost completely solid (2). Echogenicity: Hypoechoic (2). Shape: Not taller than wide (0). Margins: Irregular (2). Echogenic Foci: Punctate echogenic foci (3). ACR TI-RADS total points: 9 ACR TI-RADS category: 5 2. Location: Right mid pole. Size: 2.0 x 1.1 x 1.6 cm, volume 1 8 mL. Nodule characteristics: Composition: Solid/almost completely solid (2). Echogenicity: Hypoechoic (2). Shape: Not taller than wide (0). Margins: Irregular (2). Echogenic Foci: None (0). ACR TI-RADS total points: 6 ACR TI-RADS category: 4 3. Location: Left Lower pole. Size: 1.8 x 1.1 x 1.1 cm, volume 1.1 mL. Nodule characteristics: Composition: Solid/almost completely solid (2). Echogenicity: Hypoechoic (2). Shape: Not taller than wide (0). Margins: Smooth (0). Echogenic Foci: None (0). ACR TI-RADS total points: 4 ACR TI-RADS category: 4 NODES: No lymphadenopathy is seen in the tissue surrounding the thyroid gland. US/US thyroid IMPRESSION: 1. There is a 2.7 cm TR category 5 nodule in the right lower pole. FNA advised. 2. There is a 2.0 cm TR category 4 nodule in the right mid pole. FNA is advised. 3. There is a 1.8 cm TR category 4 nodule in the left lower pole. FNA is advised. 4. The surrounding thyroid parenchyma appears normal. ACR TI-RADS RECOMMENDATION REFERENCE: Ultrasound-guided fine-needle aspiration, followup ultrasound, no further follow up. * TR1 (0 point) and TR2 (2 points): No FNA or follow up. * TR3 (3 points): FNA if more than or equal to 2.5 cm in maximum dimension, followup ultrasound in 1, 3 and 5 years if 1.5 to 2.4 cm in maximum dimension. * TR4 (4-6 points): FNA if more than or equal to 1.5 cm in maximum dimension, followup ultrasound in 1, 2, 3 and 5 years if 1 to 1.4 cm in maximum dimension. * TR5 (more than or equal to 7 points): FNA if more than or equal to 1 cm in maximum dimension, followup ultrasound every year for 5 years if 0.5 to 0.9 cm in maximum dimension. * TR3, TR4 or TR5 nodules that are below the size threshold for followup receive no follow up. Electronically signed by: Nikita Kilgore MD 08/27/2024 01:48 PM EDT
--- NOTE | 2024-08-27 08:31 | EEG_ITS ---
This is a 16-channel EEG with an EKG lead. The patient is reported awake during the tracing. Background EEG rhythm is 10 hertz or faster, 5 to 50 microvolt posteriorly and lower amplitude fast anteriorly. Photic stimulation does not produce any significant abnormality. Hyperventilation is not performed. Cardiac lead does not reveal any significant abnormality. No sharp wave spikes or paroxysmal tendency noted. IMPRESSION: Unremarkable EEG. MD AIDEN Chi/KANDY / [id number]
== END 2024-08-27 08:29 | disposition home or self-care (01) ==
LOC: HO.NEURO 08:28
PROVIDERS: PCP Internal Medicine; Visit Provider Internal Medicine
DX: R55 Syncope and collapse (principal); M81.0 Age-related osteoporosis without current pathological fracture; M85.88 Other specified disorders of bone density and structure, other site; E04.9 Nontoxic goiter, unspecified
CPT/HCPCS: 76536; 77080; 95816

== ENCOUNTER → 2024-08-27 11:00 | Outpatient (BNV) | payer MEDICARE, MEDICAID, SELFPAY | PROVIDERS: PCP Internal Medicine; Visit Provider Radiology Diagnostic Radiology | DX: E28.39 Other primary ovarian failure (principal); E04.1 Nontoxic single thyroid nodule | CPT/HCPCS: 76536; 77080 ==

== ENCOUNTER 2024-09-01 10:31 | Outpatient (AMB) | payer MEDICARE, MEDICAID, SELFPAY ==
[2024-09-01 10:33] VITALS: BP 108/60; PULSE 88; O2SAT 98; BMI 20.9
--- NOTE | 2024-09-01 10:33 | MHC.OFFVIS ---
Vital Signs 09/01/24 10:33 Height 5 ft 6.5 in Weight 131 lb 2.801 oz BMI 20.9 BP 108/60 Blood Pressure Location Lt brachial Position Sitting Pulse 88 Pulse Source Pulse Oximeter Pulse Oximetry (%) 98 Oxygen Delivery Method Room Air Intake Visit Reasons: Nontoxic single thyroid nodule Intake Note: Patient present today for Nontoxic single thyroid nodule. 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 Accompanied by: Self / Same As Patient Allergies Echinacea Allergy (Intermediate, Verified 09/01/24 10:41) rash isopropyl alcohol Allergy (Intermediate, Verified 09/01/24 10:41) rash Sulfa (Sulfonamide Antibiotics) Allergy (Mild, Verified 09/01/24 10:41) Rash ciprofloxacin (From Cipro) Adverse Reaction (Severe, Verified 09/01/24 10:41) leg cramps metronidazole Adverse Reaction (Mild, Verified 09/01/24 10:41) Abdominal Pain fragrance floral Allergy (Intermediate, Uncoded 09/01/24 10:41) congestion and BEDOYA Medication List - Last Reconciled 09/01/24 by Judy Portillo MD diphenoxylate-atropine 2.5-0.025 mg (Lomotil) 1 tab PO BEDTIME PRN fexofenadine (Ale Allergy) 180 mg PO DAILY [Standard Process 1 cap PO 10XD] valacyclovir 1,000 mg PO DAILY HPI Comments Details: 68-year-old female coming in today for initial evaluation of nontoxic multinodular goiter. Thinks she has had them at least 15 years ago, no biopsy was done at that time, last checked out in [place]. Ultrasound thyroid 08/27/2024, I reviewed the images myself which showed a right lower pole 2.7 cm solid hypoechoic irregular nodule with punctate echogenic foci, TR 5 category meets criteria for FNA. A right midpole 2 cm solid hypoechoic irregular TR 4 category nodule, which also meets criteria for FNA. A left lower pole 1.8 cm TR 4 category nodule which is solid hypoechoic, this also meets criteria for FNA. I also see some punctate echogenic foci in this nodule, I would say this is a TR 5 category nodule. Normal TFTs from July 2024 Patient currently denies heat or cold intolerance, diarrhea or constipation, hair loss, palpitation, anxiety, weight changes, mood changes, low energy, changes in appearance of eyes or vision changes, tremors, increased diaphoresis or dry skin. ? Patient denies any difficulty swallowing, pain on swallowing or voice changes or difficulty breathing. Patient denies any history of childhood neck radiation. Denies having ever used lithium, amiodarone or biotin supplements. Patient denies any family history of thyroid cancer or thyroid disease. Physical exam General: sitting comfortably in no acute distress HEENT: normocephalic/atraumatic Neck: supple, palpable 2 cm right-sided nodule, palpable 1 cm left-sided nodule Cardiac: normal heart sounds Pulm: normal breath sounds B/L, no added breath sounds Abd: not distended, no tenderness Extremities: no edema, no signs of myxedema Laboratory Tests 07/07/24 08:19 TSH 1.34 Free T4 0.87 US THYROID 08/27/24 CLINICAL INFORMATION: Goiter. COMPARISON: None available. TECHNIQUE: Linear transducer grayscale and color Doppler examination with attention to the region of the thyroid. FINDINGS: SIZE: Measurements of the thyroid lobes and nodules are given in sagittal, anteroposterior and transverse dimensions respectively. Right Thyroid Lobe: 6.2 x 2.4 x 2.5 cm, volume 19.6 mL. Parenchyma: The gland echotexture is homogeneous. Thyroid vascularity is normal. Left Thyroid Lobe: 5.1 x 1.5 x 1.8 cm, volume 7.1 mL. Parenchyma: The gland echotexture is homogeneous. Thyroid vascularity is normal. Isthmus: 0.2 cm in maximum AP dimension. Estimated total number of nodules greater than or equal to 1 cm: 3. Surgical Sales Representative nodules are described as follows: 1. Location: Right lower pole. Size: 2.7 x 1.9 x 2.0 cm, volume 5.4 mL. Nodule characteristics: Composition: Solid/almost completely solid (2). Echogenicity: Hypoechoic (2). Shape: Not taller than wide (0). Margins: Irregular (2). Echogenic Foci: Punctate echogenic foci (3). ACR TI-RADS total points: 9 ACR TI-RADS category: 5 2. Location: Right mid pole. Size: 2.0 x 1.1 x 1.6 cm, volume 1 8 mL. Nodule characteristics: Composition: Solid/almost completely solid (2). Echogenicity: Hypoechoic (2). Shape: Not taller than wide (0). Margins: Irregular (2). Echogenic Foci: None (0). ACR TI-RADS total points: 6 ACR TI-RADS category: 4 3. Location: Left Lower pole. Size: 1.8 x 1.1 x 1.1 cm, volume 1.1 mL. Nodule characteristics: Composition: Solid/almost completely solid (2). Echogenicity: Hypoechoic (2). Shape: Not taller than wide (0). Margins: Smooth (0). Echogenic Foci: None (0). ACR TI-RADS total points: 4 ACR TI-RADS category: 4 NODES: No lymphadenopathy is seen in the tissue surrounding the thyroid gland. US/US thyroid IMPRESSION: 1. There is a 2.7 cm TR category 5 nodule in the right lower pole. FNA advised. 2. There is a 2.0 cm TR category 4 nodule in the right mid pole. FNA is advised. 3. There is a 1.8 cm TR category 4 nodule in the left lower pole. FNA is advised. 4. The surrounding thyroid parenchyma appears normal. [facility] Medical History (Updated 09/01/24 @ 10:45 by Judy Portillo MD) Multinodular goiter Annual physical exam History of ulcerative colitis Kina infection COVID-19 virus infection Lateral epicondylitis of elbow Onychomycosis Shoulder fracture, right Surgical History H/O eye surgery Ulcerative colitis Family History Father CAD (coronary artery disease), Onset Age: 64 Brother Cancer of eye, Onset Age: 67 Skin cancer, Onset Age: 40 Sister Leukemia, Onset Age: 55 MDS (myelodysplastic syndrome), Onset Age: 51 Skin cancer, Onset Age: 45 Mother Lymphoma, Onset Age: 84 CAD (coronary artery disease), Onset Age: 66 Daughter Substance abuse Depression Social History (Updated 07/20/24 @ 09:52 by Shikha Fleming MD) Housing: House Alcohol intake: current Comment: 2 x a month 1-2 drink Patient Tobacco Use Status: Never used Tobacco Tobacco use type: Cigarette e-Cigarette/Vaping Use: Never Used Second Hand Smoke Exposure: No Current occupational status: unemployed Cognitive needs: No Hearing needs: No Vision needs: Yes Assessment & Plan Assessment & Plan (1) Multinodular goiter: Code(s): E04.2 - Nontoxic multinodular goiter Category: Medical Plan: 68-year-old female with no family history of thyroid cancer, with no personal history of head or neck radiation who is coming in today for initial evaluation of nontoxic multinodular goiter. Ultrasound thyroid 08/27/2024, I reviewed the images myself which showed a right lower pole 2.7 cm solid hypoechoic irregular nodule with punctate echogenic foci, TR 5 category meets criteria for FNA. A right midpole 2 cm solid hypoechoic irregular TR 4 category nodule, which also meets criteria for FNA. A left lower pole 1.8 cm TR 4 category nodule which is solid hypoechoic, this also meets criteria for FNA. I also see some punctate echogenic foci in this nodule, I would say this is a TR 5 category nodule. Normal TFTs from July 2024. I explained that it is common to have thyroid nodules. About 95% of the time these nodules are benign. However if the nodule is > 1 cm in size or suspicious on ultrasound then a fine need aspiration biopsy is recommended. We discussed that a FNAB involves 4-5 passes with a small gauge needle and material obtained is sent off for cytology.If the cytopathology is benign then the nodule will be followed annually with repeat ultrasounds. However if it is suspicious or malignant, we will need to discuss further management. Indeterminate cytology can be further investigated with repeat FNA, genetic testing or empiric lobectomy. Malignant cytology is managed with either lobectomy or total thyroidectomy. We discussed briefly that thyroid cancer is, in most patients, an indolent disease that does not affect mortality. At this point the right midpole 2 cm and the left lower pole 1.8 cm nodules look most suspicious. First I will biopsy these. We will arrange for FNA right midpole 2 cm and the left lower pole 1.8 cm thyroid nodule at next available opening and patient will follow up with me in clinic thereafter for results and further decision making. Plan: -scheduled for FNA of the right midpole 2 cm and the left lower pole 1.8 cm thyroid nodule and a follow up 2 weeks after to discuss results Plan I spent 45 minutes in reviewing the record, seeing the patient and documenting in the medical record. Orders: Orders US biopsy thyroid Today E04.2 - Nontoxic multinodular goiter Patient Instructions: We will schedule you for a biopsy of your right-sided thyroid nodules and a follow up 2 weeks after to discuss results Coding Level of Care Code New Pt Level 4 (51108) Diagnoses Multinodular goiter E04.2 Time Spent (min) 45
== END 2024-09-01 11:12 | disposition home or self-care (01) ==
LOC: HO.ENCR 10:32
PROVIDERS: PCP Internal Medicine; Visit Provider Student in an Organized Health Care Education/Training Program
DX: E04.2 Nontoxic multinodular goiter (principal)
CPT/HCPCS: 99204

== ENCOUNTER → 2024-09-01 10:31 | Outpatient (BNVA) | payer MEDICARE, MEDICAID, SELFPAY | PROVIDERS: PCP Internal Medicine; Visit Provider Student in an Organized Health Care Education/Training Program | DX: E04.2 Nontoxic multinodular goiter (principal) | CPT/HCPCS: 99202 ==

== ENCOUNTER 2024-09-09 10:46 | Outpatient (REF) | payer MEDICARE, MEDICAID, SELFPAY ==
--- NOTE | 2024-09-09 11:54 | PM.PROC ---
Brief Operative Note Date of procedure: 09/09/24 Pre-op diagnosis: left lower 1.8 cm and right lower 2.7 cm thyroid nodule FNA biopsy Post-op diagnosis: same Procedure: THYROID FINE NEEDLE ASPIRATION PROCEDURE NOTE ? PROCEDURE PERFORMED: Ultrasound-guided FNA of thyroid nodule ? OPERATORS: Dr. Judy Portillo ? INDICATION: left lower 1.8 cm and right lower 2.7 cm thyroid nodules; FNA performed to assess for malignancy ? DESCRIPTION OF PROCEDURE: The indications for FNA (to assess for malignancy) were reviewed with the patient in detail. Potential complications (e.g., bleeding, infection, damage to local structures, absence of clear diagnosis after FNA) were reviewed. Alternatives to FNA including conservative observation or surgery were described. The patient understood and agreed to proceed. This was documented by the signing of the written informed consent form. A time-out was performed to confirm the patient's identity and the site of planned FNA. The nodule of interest was identified using ultrasound (14 MHz linear array probe). The sites of FNA was then draped in the usual fashion and carefully cleaned and prepared using alcohol swabs. The skin at the previously-identified sites of needle insertion were iced and sprayed with numbing spray. First for the left lower 1.8 cm nodule , Under ultrasound guidance, _5_ passes were performed using a 1.5-inch, 25-gauge needle, and sample was obtained via capillary action. The needle tip was clearly visualized to be within the nodule at the time of sampling for 3__ of _5 passes then for the right lower 2.7 cm thyroid nodule , Under ultrasound guidance, _5_ passes were performed using a 1.5-inch, 25-gauge needle, and sample was obtained via capillary action. The needle tip was clearly visualized to be within the nodule at the time of sampling for 5__ of _5 passes The patient tolerated the procedure well. There were no immediate complications. A small adhesive bandage was applied, and the patient was advised to take acetaminophen (rather than NSAIDs) for any discomfort and to report any signs of inflammation/infection or marked swelling. IMPRESSION: Technically successful ultrasound-guided fine needle aspiration of left lower 1.8 cm and right lower 2.7 cm thyroid nodules . PLAN: The patient was advised that I will provide follow-up regarding the cytology result and any subsequent plans. Judy Portillo MD Endocrinology Attending Condition: stable Disposition: same day
== END 2024-09-09 10:47 | disposition home or self-care (01) ==
LOC: HO.US 10:46
PROVIDERS: PCP Internal Medicine; Visit Provider Student in an Organized Health Care Education/Training Program
DX: E04.2 Nontoxic multinodular goiter (principal)
CPT/HCPCS: 10005; 88173; 88305

== ENCOUNTER → 2024-09-09 10:46 | Outpatient (BNV) | payer MEDICARE, MEDICAID, SELFPAY | PROVIDERS: PCP Internal Medicine; Visit Provider Student in an Organized Health Care Education/Training Program | DX: E04.2 Nontoxic multinodular goiter (principal) | CPT/HCPCS: 10005; 10006 ==

== ENCOUNTER 2024-09-23 14:52 | Outpatient (AMB) | payer MEDICARE, MEDICAID, SELFPAY ==
[2024-09-23 15:03] VITALS: BP 124/72; PULSE 73; O2SAT 97; BMI 21.1
--- NOTE | 2024-09-23 15:03 | MHC.OFFVIS ---
Vital Signs 09/23/24 15:03 Height 5 ft 6.5 in Weight 132 lb 15.02 oz BMI 21.1 BP 124/72 Blood Pressure Location Lt brachial Position Sitting Pulse 73 Pulse Source Pulse Oximeter Pulse Oximetry (%) 97 Oxygen Delivery Method Room Air Intake Visit Reasons: Biopsy f/u Intake Note: Patient present today for biopsy follow up. 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 Accompanied by: Spouse Allergies Echinacea Allergy (Intermediate, Verified 09/23/24 15:07) rash isopropyl alcohol Allergy (Intermediate, Verified 09/23/24 15:07) rash Sulfa (Sulfonamide Antibiotics) Allergy (Mild, Verified 09/23/24 15:07) Rash ciprofloxacin (From Cipro) Adverse Reaction (Severe, Verified 09/23/24 15:07) leg cramps metronidazole Adverse Reaction (Mild, Verified 09/23/24 15:07) Abdominal Pain fragrance floral Allergy (Intermediate, Uncoded 09/23/24 15:07) congestion and BEDOYA Medication List - Last Reconciled 09/23/24 by Judy Portillo MD diphenoxylate-atropine 2.5-0.025 mg (Lomotil) 1 tab PO BEDTIME PRN fexofenadine (Ale Allergy) 180 mg PO DAILY [Standard Process 1 cap PO 10XD] valacyclovir 1,000 mg PO DAILY HPI Comments Details: 68-year-old female coming in today for fup of nontoxic multinodular goiter. Thinks she has had them at least 15 years ago, no biopsy was done at that time, last checked out in [place]. Ultrasound thyroid 08/27/2024, I reviewed the images myself which showed a right lower pole 2.7 cm solid hypoechoic irregular nodule with punctate echogenic foci, TR 5 category meets criteria for FNA. A right midpole 2 cm solid hypoechoic irregular TR 4 category nodule, which also meets criteria for FNA. A left lower pole 1.8 cm TR 4 category nodule which is solid hypoechoic, this also meets criteria for FNA. I also see some punctate echogenic foci in this nodule, I would say this is a TR 5 category nodule. Normal TFTs from July 2024 Patient currently denies heat or cold intolerance, diarrhea or constipation, hair loss, palpitation, anxiety, weight changes, mood changes, low energy, changes in appearance of eyes or vision changes, tremors, increased diaphoresis or dry skin. ? Patient denies any difficulty swallowing, pain on swallowing or voice changes or difficulty breathing. Patient denies any history of childhood neck radiation. Denies having ever used lithium, amiodarone or biotin supplements. Patient denies any family history of thyroid cancer or thyroid disease. Interval history 09/09/2024: Status post FNA of the right lower pole 2.7 cm and left lower pole 1.8 cm nodule, unfortunately both came back as nondiagnostic, [place] category 2. Physical exam General: sitting comfortably in no acute distress HEENT: normocephalic/atraumatic Neck: supple, palpable 2 cm right-sided nodule, palpable 1 cm left-sided nodule Cardiac: normal heart sounds Pulm: normal breath sounds B/L, no added breath sounds Abd: not distended, no tenderness Extremities: no edema, no signs of myxedema Laboratory Tests 07/07/24 08:19 TSH 1.34 Free T4 0.87 US THYROID 08/27/24 CLINICAL INFORMATION: Goiter. COMPARISON: None available. TECHNIQUE: Linear transducer grayscale and color Doppler examination with attention to the region of the thyroid. FINDINGS: SIZE: Measurements of the thyroid lobes and nodules are given in sagittal, anteroposterior and transverse dimensions respectively. Right Thyroid Lobe: 6.2 x 2.4 x 2.5 cm, volume 19.6 mL. Parenchyma: The gland echotexture is homogeneous. Thyroid vascularity is normal. Left Thyroid Lobe: 5.1 x 1.5 x 1.8 cm, volume 7.1 mL. Parenchyma: The gland echotexture is homogeneous. Thyroid vascularity is normal. Isthmus: 0.2 cm in maximum AP dimension. Estimated total number of nodules greater than or equal to 1 cm: 3. 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 Location: Right lower pole. Size: 2.7 x 1.9 x 2.0 cm, volume 5.4 mL. Nodule characteristics: Composition: Solid/almost completely solid (2). Echogenicity: Hypoechoic (2). Shape: Not taller than wide (0). Margins: Irregular (2). Echogenic Foci: Punctate echogenic foci (3). ACR TI-RADS total points: 9 ACR TI-RADS category: 5 2. Location: Right mid pole. Size: 2.0 x 1.1 x 1.6 cm, volume 1 8 mL. Nodule characteristics: Composition: Solid/almost completely solid (2). Echogenicity: Hypoechoic (2). Shape: Not taller than wide (0). Margins: Irregular (2). Echogenic Foci: None (0). ACR TI-RADS total points: 6 ACR TI-RADS category: 4 3. Location: Left Lower pole. Size: 1.8 x 1.1 x 1.1 cm, volume 1.1 mL. Nodule characteristics: Composition: Solid/almost completely solid (2). Echogenicity: Hypoechoic (2). Shape: Not taller than wide (0). Margins: Smooth (0). Echogenic Foci: None (0). ACR TI-RADS total points: 4 ACR TI-RADS category: 4 NODES: No lymphadenopathy is seen in the tissue surrounding the thyroid gland. US/US thyroid IMPRESSION: 1. There is a 2.7 cm TR category 5 nodule in the right lower pole. FNA advised. 2. There is a 2.0 cm TR category 4 nodule in the right mid pole. FNA is advised. 3. There is a 1.8 cm TR category 4 nodule in the left lower pole. FNA is advised. 4. The surrounding thyroid parenchyma appears normal. [facility] Medical History (Updated 09/01/24 @ 10:45 by Judy Portillo MD) Multinodular goiter Annual physical exam History of ulcerative colitis Kina infection COVID-19 virus infection Lateral epicondylitis of elbow Onychomycosis Shoulder fracture, right Surgical History H/O eye surgery Ulcerative colitis Family History Father CAD (coronary artery disease), Onset Age: 64 Brother Cancer of eye, Onset Age: 67 Skin cancer, Onset Age: 40 Sister Leukemia, Onset Age: 55 MDS (myelodysplastic syndrome), Onset Age: 51 Skin cancer, Onset Age: 45 Mother Lymphoma, Onset Age: 84 CAD (coronary artery disease), Onset Age: 66 Daughter Substance abuse Depression Social History Housing: House Alcohol intake: current Comment: 2 x a month 1-2 drink Patient Tobacco Use Status: Never used Tobacco Tobacco use type: Cigarette e-Cigarette/Vaping Use: Never Used Second Hand Smoke Exposure: No Current occupational status: unemployed Cognitive needs: No Hearing needs: No Vision needs: Yes Physical Exam Vital Signs: Last Vital Signs Pulse 73 09/23/24 15:03 BP 124/72 09/23/24 15:03 Pulse Ox 97 09/23/24 15:03 Oxygen Delivery Method Room Air 09/23/24 15:03 BMI result Body Mass Index 21.1 Assessment & Plan Assessment & Plan (1) Multinodular goiter: Code(s): E04.2 - Nontoxic multinodular goiter Category: Medical Plan: 68-year-old female with no family history of thyroid cancer, with no personal history of head or neck radiation who is coming in today for initial evaluation of nontoxic multinodular goiter. Ultrasound thyroid 08/27/2024, I reviewed the images myself which showed a right lower pole 2.7 cm solid hypoechoic irregular nodule with punctate echogenic foci, TR 5 category meets criteria for FNA. A right midpole 2 cm solid hypoechoic irregular TR 4 category nodule, which also meets criteria for FNA. A left lower pole 1.8 cm TR 4 category nodule which is solid hypoechoic, this also meets criteria for FNA. I also see some punctate echogenic foci in this nodule, I would say this is a TR 5 category nodule. Normal TFTs from July 2024. 09/09/2024: Status post FNA of the right lower pole 2.7 cm and left lower pole 1.8 cm nodule, unfortunately both came back as nondiagnostic, [place] category 2. I discussed with the patient nondiagnostic results yield a 5-20% risk of malignancy. At this point would recommend repeating the biopsy. She did express that it was quite painful for her and she would prefer to do 1 nodule at a time. At this point we will plan to repeat the right lower pole 2.7 cm thyroid nodule FNA biopsy in 3 months. She would also need repeat of left lower 1.8 cm and so far we have not done the right midpole 2 cm biopsy yet. Plan: -scheduled for repeat FNA of the right lower pole 2.7 cm nodule in 3 months and a follow up 2 weeks after to discuss results Plan See above Orders: Orders US biopsy thyroid Today E04.2 - Nontoxic multinodular goiter Coding Level of Care Code Est Pt Level 3 (41213) Diagnoses Multinodular goiter E04.2
--- OUTSIDE RECORDS SUMMARY | 2024-09-23 15:29 | XMS_ITS | Continuity of Care Document ---
Author Organization [place] - [facility], [facility] Address [address] [place] [address] Care Team Providers Care Manager Collection Name Role Phone SURAJRADHA Primary Care Provider Assessment Encounter Date Assessment Date Assessment LastModified by Organization Details LastModified Time 09/23/2024 09/23/2024 1. Chronic sinusitis 2. Nasal congestion Plan: I had a long discussion with the patient regarding the diagnosis of CRS and the examination findings. We discussed that CRSis caused by chronic inflammation of the nasal cavity and sinuses that may have several underlying triggers including environmental irritants, aberrant anatomy, allergies, and immunodeficiency . We discussed that the symptoms of this condition include nasal obstruction, discharge, pressure, headaches, recurrent infection and decreased sense of smell. The goals of care are to identify the cause of the inflammation and decrease the severity of inflammation, but this typically does not cure the underlying disease. This is best achieved by treating with topical nasal steroid medications to reduce swelling and inflammation. Oral antibiotics and oral steroids are occasionally used in the treatment of acute exacerbations superimposed on the chronic inflammation. If conservative medical therapy is unsuccessful then sometimes surgical treatment is helpful in reducing the frequency of infection and allowing better delivery of medications. -Nasal saline irrigation BID -Continue antiallergy medication Follow-up with CT sinuses [email or web address] Not available 09/23/2024 15:01:35 Plan of Treatment Reminders Order Date Submit Date Provider Last Modified By Organization Details Last Modified Time Details Appointments New Patient 20 2024 01:40P Charles BURGESS MD Not available Not available Not available CT Scan 2024 09:30A M [facility] Not available Not available Not available PROCEDURE 15 2024 09:50A M CRYSTAL BURGESS MD Not available Not available Not available Lab None recorded. Referral None recorded. Procedures None recorded. Surgeries None recorded. Imaging None recorded. Medication Orders None recorded. Patient TargetsNo targets recorded. Patient InstructionsNo instructions recorded. Reason for Referral None Reported. Problems Name Problem SNOMED Code Status Onset Date Resolution Date Notes Provider Name and Address Organization Details Recorded Time Chronic sinusitis 85532638 Active 025 CRYSTAL BURGESS MD [address] [place] [address], [place], [phone], [facility] 15:01:44 Nasal congestion 69398889 Active 025 CRYSTAL BURGESS MD [address] [place] [address], [place], [phone], [facility] 15:01:46 Chronic rhinitis 22750043 Active 025 CRYSTAL BURGESS MD [address] [place] [address], [place], [phone], [facility] 15:01:47 Problem Notes None recorded. Procedures Surgical History Date Name Laterality Status Provider Name and Address Organization Details Recorded Time NasalEndoscop y_DP completed CRYSTAL BURGESS MD [address] [place] [address], [phone], [facility] 09/23/2024 13:56:30 excision of colon completed Melinda Foreman [facility] 09/23/2024 13:56:16 Imaging Results None recorded. Procedure Notes None recorded. Medical Equipment None Reported. Allergies Allergen ID Allergen Name Allergen Category Reaction Reaction Severity Criticality Documentation Date Start Date Code Code System Note Provider Name and Address Organization Details Recorded Time 112469 Substance with sulfonami de structure and antibacte rial mechanism of action (substanc e) medicatio n Not available Not available Not available 09/23/2024 48003 8003 SNOMED Melinda hoyt [facility] 13:51:43 435954 ciproflox acin medicatio n Not available Not available Not available 09/23/2024 2551 RxNorm Melinda Caremlitasloane hoyt [facility] 13:51:53 067709 isopropyl alcohol medicatio n Not available Not available Not available 09/23/2024 61151 1 RxNomarquise Foreman JARRED hoyt [facility] 13:52:17 Medications Name Sig Start Date Stop Date Status Note LastModified by Organization Details LastModified Time prednisone 10 mg tablet PLEASE SEE ATTACHED FOR DETAILED DIRECTIONS active Not Available Not Available N ot Available doxycycline hyclate 100 mg capsule TAKE 1 CAPSULE BY MOUTH TWICE A DAY active Not Available Not Available No t Available valacyclovir 1 gram tablet TAKE 1 TABLET ORALLY DAILY active Not Available Not Available No t Available amoxicillin 875 mg-potassium clavulanate 125 mg tablet TAKE 1 TABLET BY MOUTH TWICE A DAY IN THE MORNING AND IN THE EVENING FOR 10 DAYS active Not Available Not Available No t Available amoxicillin 500 mg-potassium clavulanate 125 mg tablet TAKE 1 TABLET BY MOUTH THREE TIMES A DAY active Not Available Not Available Not Available cefixime 400 mg capsule TAKE 1 CAPSULE BY MOUTH EVERY DAY FOR 7 DAYS active Not Available Not Available No t Available Vitals Date Recorded Body height Body mass index (BMI) Body weight Provider Name and Address Organization Details Last Updated DateTime 09/23/2024 165.61 cm 21.5 kg/m2 66646.01 mona Foreman [facility] 09/23/2024 13:51:28 Social History None recorded. Functional Status None recorded. Mental Status None recorded. Family History Nothing Reported. Medical History Condition Response Allergies/Hayfever N Heart Problems N Anxiety N Tonsil Infections N Emphysema N Migraines N Thyroid Problems Y Glaucoma N Depression N COPD N Developmental Delay N Nasal or Sinus Problems N Anemia Y Immune System Disorder N Anesthesia Complications N Heart Attack ([place]) N Other Skin Condition N Diabetes N Rhinitis N Bleeding Disorder N Food Allergy N Arthritis Y Hearing Loss N Hyperlipidemia N Cancer N Stroke N Dementia N Nasal polyps N Asthma N High Cholesterol N Sleep Disorder N GERD/Reflux N Liver Disease N Headaches N Fibromyalgia N Hypertension N Speech Delay N Kidney Disease N Gynecological HistoryNo gynecological history recorded. Obstetrics History GPAL:G 0 P 0 0 0 0 Past Encounters Encounter ID Performer Location Encounter Start Date Encounter Closed Date Diagnosis/Indication Diagnosis SNOMED-CT Code Diagnosis ICD10 Code Diagnosis Note [id number] CRYSTAL BURGESS MD [facility] [address] [address] 09/23/2024 13:25:42 09/23/2024 14:11:16 Chronic sinusitis 66385320 J32.9 Nasal congestion 3040701 0 R09.81 Chronic rhinitis 4792408 6 J31.0 Health Concerns Section Related Observation LastModified by Organization Detai ls LastModified Time None Recorded Concern Status LastModified by Organization Details LastModified Time None Recorded Payers Encounter Date Sequence Insurance Name Policy Number Policy Flower Covered Member ID Flower Member ID Guarantor Name 09/23/2024 1 [place] (MEDICARE REPLACEMENT PPO) [id number] Milana Mendoza [id number] Milana Mendoza 09/23/2024 2 [place] [facility] Milana Mendoza [id number] Milana Mendoza Notes Date Note Type Note Provider Name and Address Organization Details Recorded Time 09/23/2024 text/html She has frequent sinus infection for > the last 1 yearShe has been using claritin.Started using enmanuel. Associated symptoms: green drainage, nasal congestion Medications trialed: see above, also irrigations History of seasonal allergies: yes History of prior nasal trauma: noHistory of recurrent, acute, or chronic sinusitis: yes, chronic History of prior nasal surgery: no No smokingNo other health problems CRYSTAL BURGESS MD [address] [place] [address], [phone], [facility] - [facility] 09/23/2024 15:02:00 OBGyn Episode No OBEpisode recorded.
--- OUTSIDE RECORDS SUMMARY | 2024-09-23 15:29 | XMS_ITS | Encounter Summary ---
Author Organization [facility] Address [address] [place] [address] Phone Care Team Providers Care Director Drug Safety Name Role Phone Bright Cain MD Primary Care Provider [phone]- [phone] Reason for Referral * Physical Therapy (Routine) - Closed Specialty Diagnoses / Procedures Referred By Contac t Referred To Contact Physical Therapy Diagnoses Encounter for rehabilitation System, Provider Not In, PhD [address] [address] Phone: tel: Referral ID Status Reason Start Date Expiration Date Visits Re quested Visits Authorized [id number] Closed 08/08/2017 12/31/2017 12 12 Encounter Details Date Type Department Care Team (Latest Contact Info) Description 08/08/2017 Transcribe Orders [facility] [address] [place] [address] oJlly Laurent DO Encounter for rehabilitation (Primary Dx) [...] Date/Time Associated Diagnosis Comments AMB REFERRAL TO [facility] PHYSICAL THERAPY Routine 08/22/2017 12:17 PM EDT Encounter for rehabilitation documented in this encounter Results * Ambulatory referral to [facility] Physical Therapy (08/22/2017 12:17 PM EDT) us Provider Not In System PhD [facility]B [facility] REFERRALS Fin al Result documented in this encounter Visit Diagnoses Diagnosis Encounter for rehabilitation- Primary documented in this encounter Care Teams Director Drug Safety Relationship Specialty Start Date End Date Bright Cain MD [address] [place] [phone] PCP - General Internal Medicine 07/22/17 documented as of this encounter Additional Source Comments The information contained in this document represents components of the legal health record. It is not the complete legal health record.[facility]
== END 2024-09-23 15:41 | disposition home or self-care (01) ==
LOC: HO.ENCR 14:53
PROVIDERS: PCP Internal Medicine; Visit Provider Student in an Organized Health Care Education/Training Program
DX: E04.2 Nontoxic multinodular goiter (principal)
CPT/HCPCS: 99213

== ENCOUNTER → 2024-09-23 14:52 | Outpatient (BNVA) | payer MEDICARE, MEDICAID, SELFPAY | PROVIDERS: PCP Internal Medicine; Visit Provider Student in an Organized Health Care Education/Training Program | DX: E04.2 Nontoxic multinodular goiter (principal) | CPT/HCPCS: 99212 ==

== ENCOUNTER 2024-11-05 08:58 | Outpatient (AMB) | payer MEDICARE, MEDICAID, SELFPAY ==
[2024-11-05 09:02] VITALS: BP 117/57; PULSE 76; BMI 21.0
--- NOTE | 2024-11-05 09:02 | MHC.OFFVIS ---
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 Intake Note: New Dr Fleming has past out twice once sitting in a chair once after standing for a while has had other time she feeling like she might pass out Chocolate Maker Required: No Allergies Echinacea Allergy (Intermediate, Verified 09/23/24 15:07) rash isopropyl alcohol Allergy (Intermediate, Verified 09/23/24 15:07) rash Sulfa (Sulfonamide Antibiotics) Allergy (Mild, Verified 09/23/24 15:07) Rash ciprofloxacin (From Cipro) Adverse Reaction (Severe, Verified 09/23/24 15:07) leg cramps metronidazole Adverse Reaction (Mild, Verified 09/23/24 15:07) Abdominal Pain fragrance floral Allergy (Intermediate, Uncoded 09/23/24 15:07) congestion and BEDOYA Medication List - Last Reconciled 11/05/24 by Geo Graham MD acyclovir 200 mg PO TID PRN diphenoxylate-atropine 2.5-0.025 mg (Lomotil) 1 tab PO BEDTIME PRN fexofenadine (Ale Allergy) 180 mg PO DAILY [Standard Process 1 cap PO 10XD] HPI Comments Details: Thank you for referring so justice in cardiology consultation today for syncope. Patient is a pleasant 69-year-old female with family history of coronary artery disease in her father undergoing coronary artery bypass grafting age 64. She herself has history of osteopenia, hearing deficit, total colectomy for ulcerative colitis without any major cardiovascular risk factors. She is a nonsmoker. She is fairly active and takes care of 2 young grandchildren. However she says about couple years ago she was sitting down and she felt lightheaded and then she suddenly passed out. Following that about 9 months to a year later she was standing in the kitchen and she would suddenly felt lightheaded and passed out. Since then she has had multiple episodes of lightheadedness but she then prevents herself from passing out by squatting to the ground. Some of the symptoms however happened in his sitting position which she is highly unusual. However most of the symptoms happen in standing position. She says she does get diarrhea due to her prior colectomy and is currently taking Imodium. She drinks about 50 oz of fluid a day and not much salt intake. She denies any symptoms of palpitations, shortness of breath or chest pain prior to these passing out episodes. She has no exertional chest pain or shortness of breath. No prior prolonged palpitation irregular heartbeat. [facility] Medical History Multinodular goiter Annual physical exam History of ulcerative colitis Kina infection COVID-19 virus infection Lateral epicondylitis of elbow Onychomycosis Shoulder fracture, right Surgical History H/O eye surgery Ulcerative colitis Family History Father CAD (coronary artery disease), Onset Age: 64 Brother Cancer of eye, Onset Age: 67 Skin cancer, Onset Age: 40 Sister Leukemia, Onset Age: 55 MDS (myelodysplastic syndrome), Onset Age: 51 Skin cancer, Onset Age: 45 Mother Lymphoma, Onset Age: 84 CAD (coronary artery disease), Onset Age: 66 Daughter Substance abuse Depression Social History Housing: House Alcohol intake: current Comment: 2 x a month 1-2 drink Patient Tobacco Use Status: Never used Tobacco Tobacco use type: Cigarette e-Cigarette/Vaping Use: Never Used Second Hand Smoke Exposure: No Current occupational status: unemployed Cognitive needs: No Hearing needs: No Vision needs: Yes Review of Systems Const Denies chills, Denies daytime sleepiness, Denies fatigue, Denies fever(s), Denies frequent falls, Denies poor appetite, Denies snoring, Denies stops breathing during sleep, Denies weakness, Denies weight gain and Denies weight loss Eyes Denies loss of vision ENT Reports dizziness and Denies hearing loss Card Denies chest pain, Denies claudication, Denies leg edema, Reports lightheadedness, Denies palpitations, Denies dyspnea, Denies dyspnea on exertion and Denies orthopnea Resp Denies cough, Denies excessive phlegm production, Denies dyspnea, Denies dyspnea on exertion, Denies snoring and Denies wheezing GI Denies abdominal pain, Denies hematochezia, Denies change in bowel habits, Denies nausea and Denies vomiting Denies urinary frequency and Denies dysuria Musc Denies arthralgias, Denies muscle weakness and Denies numbness Skin/Breast Denies nail changes and Denies rash Neuro Denies Abnormal speech present, Reports dizziness, Denies frequent falls, Denies loss of vision, Denies memory loss, Denies numbness and Denies weakness Psych Denies depression and Denies memory loss Endo Denies fatigue and Denies palpitations Jimy/Lymph Reports easy bruising and Reports other (anemia) Aller/Immun Denies wheezing Physical Exam Vital Signs: Last Vital Signs Pulse 86 11/05/24 09:16 BP 107/55 L 11/05/24 09:16 BMI result Body Mass Index 21.0 Const General: cooperative, comfortable, no acute distress, well developed, alert, awake, Physically active and well groomed Nutritional Appearance: well nourished and thin Orientation/consciousness: patient oriented x3 Limitations: no limitations HEENT Head: Yes normocephalic and Yes atraumatic Neck Neck: Yes trachea midline, Yes supple and Yes no JVD Resp Effort & Inspection: normal respiratory effort Auscultation: clear to auscultation bilaterally Cardio Jugular venous distension: no JVD Palpation: normal PMI Rate: regular rate Rhythm: regular rhythm Heart sounds: S1 normal heart sound present, S2 normal heart sound present, no click, no gallops, no murmurs and no rubs GI Auscultation: normal bowel sounds Skin General skin exam: no rashes or lesions noted Neuro General: patient oriented x3 and no focal motor deficits Speech: No Abnormal speech present Extrem General: Yes no clubbing, cyanosis or edema Psych Appearance: grossly normal Assessment & Plan Assessment & Plan (1) Syncope: Code(s): R55 - Syncope and collapse Category: Medical Plan: Patient with 2 episodes of syncope in the past, and multiple episodes of lightheadedness. These symptoms are most suggestive of orthostatic hypotension however couple of episodes happen while in sitting position which is unusual for orthostatic hypotension although possible. She has tendency for related to hypovolemia with her colectomy with intermittent episode of diarrhea and overall inadequate water and salt intake. We discussed about mechanism of orthostatic syncope in details. Other possible etiologies include Trav arrhythmias which are less likely given that she has no significant other cardiac arrhythmias or history. However will suggest a 30 day event monitor to assess for any arrhythmias/Trav arrhythmias. Also suggest an echocardiogram to evaluate for structural heart disease. Suggest to also do a head-up tilt-table test to further assess for orthostatic hypotension. Less likely that this symptoms represent vasovagal syncope. I have discussed management of orthostatic hypotension in details and have advised to at least increase her fluid intake to 64 oz and may require more. Also having advise her to liberalize her salt intake. Orthostatic precautions were discussed in details and she understands them well. Follow up in the clinic after above-mentioned test. Thank you for allowing me to partake in her care Orders: Orders ECG 30 day event monitor Today R55 - Syncope and collapse ECG Tilt Table Test Today R55 - Syncope and collapse CA echo transthoracic complete Today R55 - Syncope and collapse Coding Level of Care Code New Pt Level 4 (33240) Complex EM visit Add On G2211 Diagnoses Syncope R55
[2024-11-05 09:16] VITALS: BP 107/55; BP 111/57; PULSE 80; PULSE 86
--- OUTSIDE RECORDS SUMMARY | 2024-11-05 09:29 | XMS_ITS | Encounter Summary ---
Author Organization [facility] Address [address] [place] [address] Phone Care Team Providers Care Automation Engineer Name Role Phone Bright Cain MD Primary Care Provider +1- [phone] Encounter Details Date Type Department Care Team (Late st Contact Info) Description 08/08/2017 Transcribe Orders [facility] [address] [place] [address] [place] [address] Jolly Laurent DO Social History Tobacco Use [...] on filedocumented in this encounter Care Teams Automation Engineer Relationship Specialty Start Date End Date Bright Cain MD [address] [place] [phone] PCP - General Internal Medicine 07/22/17 documented as of this encounter Additional Source Comments The information contained in this document represents components of the legal health record. It is not the complete legal health record.[facility]
--- OUTSIDE RECORDS SUMMARY | 2024-11-05 09:29 | XMS_ITS | Encounter Summary ---
Author Organization [facility] Address [address] [place] [address] Phone Care Team Providers Care Chairman & Chief Executive Officer Name Role Phone Bright Cain MD Primary Care Provider +1- [phone] Reason for Referral * Physical Therapy (Routine) - Closed Specialty Diagnoses / Procedures Referred By Contac t Referred To Contact Physical Therapy Diagnoses Encounter for rehabilitation System, Provider Not In, PhD [address] [address] Phone: tel: Referral ID Status Reason Start Date Expiration Date Visits Re quested Visits Authorized [id number] Closed 08/08/2017 12/31/2017 12 12 Encounter Details Date Type Department Care Team (Latest Contact Info) Description 08/08/2017 Transcribe Orders [facility] [address] [place] [address] Jolly Laurent DO Encounter for rehabilitation (Primary [...] Date/Time Associated Diagnosis Comments AMB REFERRAL TO [facility] PHYSICAL THERAPY Routine 08/22/2017 12:17 PM EDT Encounter for rehabilitation documented in this encounter Results * Ambulatory referral to [facility] Physical Therapy (08/22/2017 12:17 PM EDT) us Provider Not In System PhD [facility]B [facility] REFERRALS Fin al Result documented in this encounter Visit Diagnoses Diagnosis Encounter for rehabilitation- Primary documented in this encounter Care Teams Chairman & Chief Executive Officer Relationship Specialty Start Date End Date Bright Cain MD [address] [place] [phone] PCP - General Internal Medicine 07/22/17 documented as of this encounter Additional Source Comments The information contained in this document represents components of the legal health record. It is not the complete legal health record.[facility]
--- OUTSIDE RECORDS SUMMARY | 2024-11-05 09:29 | XMS_ITS | Clinical Summary ---
Author Organization [facility] Address [address] [place] [address] Phone Care Team Providers Care Blow Molding Machine Tender Name Role Phone Bright Cain MD Primary Care Provider +1- [phone] Social History Tobacco Use Types Packs/Day Years [...] with a working camera? Not on file Comments Unknown Sex and Gender Information Value Date Recorded Sex Assigned at Not on file Legal Sex Female 12:59 PM EDT Gender Identity Not on file Sexual Orientation Not on file Plan of Treatment Health Maintenance Due Date Last Done Comments Adult Td,Tdap Booster 1956 LIPID PANEL 1956 DEPRESSION SCREENING 1968 SMOKING Hx and SMOKELESS TOB ACCO SCREENING 1969 HEPATITIS C SCREENING 1974 MAMMOGRAM 1996 COLOGUARD 2001 COLONOSCOPY 2001 COLORECTAL CANCER SCREENING 2001 FIT TEST 2001 FOBT 2001 SIGMOIDOSCOPY 2001 VIRTUAL COLONOSCOPY 2001 PNEUMOCOCCAL VACCINES (50+ y ears) (1 of 1 - PCV) 2006 ZOSTER VACCINES (1 of 2) 2006 OSTEOPOROSIS SCREENING INITI AL (ONE-TIME) 2021 INFLUENZA VACCINE (#1) 2024 COVID-19 VACCINE ( - 2023-2 5 season) 2024 RSV VACCINE (1 - 1-dose 75+ series) 11/03/2031 HEPATITIS A VACCINES Aged Out No long er eligible based on patient's age to complete this topic HIB VACCINES Aged Out No longer eligi ble based on patient's age to complete this topic MENINGOCOCCAL VACCINES (ACWY) Aged Out No longer eligible based on patient's age to complete this topic MENINGOCOCCAL VACCINES (B) Aged Out N o longer eligible based on patient's age to complete this topic Medical Devices Not on file Insurance [facility] PPO [facility] PPO [facility] PPO [facility] [place] [address] [place] [address] PPO [facility] PPO Care Teams Blow Molding Machine Tender Relationship Specialty Start Date End Date Bright Cain MD [address] [place] [phone] PCP - General Internal Medicine 07/22/17 Additional Source Comments The information contained in this document represents components of the legal health record. It is not the complete legal health record.[facility]
== END 2024-11-05 09:45 | disposition home or self-care (01) ==
LOC: HO.HCS 08:59
PROVIDERS: PCP Internal Medicine; Visit Provider Internal Medicine Cardiovascular Disease
DX: R55 Syncope and collapse (principal)
CPT/HCPCS: 99214; G2211

== ENCOUNTER → 2024-11-05 08:58 | Outpatient (BNVA) | payer MEDICARE, MEDICAID, SELFPAY | PROVIDERS: PCP Internal Medicine; Visit Provider Internal Medicine Cardiovascular Disease | DX: R55 Syncope and collapse (principal) | CPT/HCPCS: 99212 ==

== ENCOUNTER 2024-11-26 14:21 | Outpatient (AMB) | payer MEDICARE, MEDICAID, SELFPAY ==
--- NOTE | 2024-11-26 14:24 | A.OFFVIS_ITS ---
Vital Signs 11/26/24 14:25 Height 5 ft 6.5 in Weight 137 lb BMI 21.8 BP 110/60 Blood Pressure Location Rt brachial Position Sitting Pulse 95 Pulse Source Pulse Oximeter Pulse Oximetry (%) 97 Oxygen Delivery Method Room Air Intake Visit Reasons: INP-Syncope & Collapse Intake Note: Syncopy and Collapse Agricultural Chemist Required: No Accompanied by: Self / Same As Patient Allergies Echinacea Allergy (Intermediate, Verified 11/26/24 14:25) rash isopropyl alcohol Allergy (Intermediate, Verified 11/26/24 14:25) rash Sulfa (Sulfonamide Antibiotics) Allergy (Mild, Verified 11/26/24 14:25) Rash ciprofloxacin (From Cipro) Adverse Reaction (Severe, Verified 11/26/24 14:25) leg cramps metronidazole Adverse Reaction (Mild, Verified 11/26/24 14:25) Abdominal Pain fragrance floral Allergy (Intermediate, Uncoded 09/23/24 15:07) congestion and BEDOYA HPI Comments Details: 69y/o Right handed female comes for 2 episodes of syncope and multiple episodes of lightheadedness. The first episode was in Oct 2022, the second episode was 6 mths later Apr 2023. During her first episode - it was hot summer day, she had kayaked and worked in her garden , went to dinner -had 1 glass of mixed drink and was sitting in a high chair after dinner and passed out- slid off the chair, vomited and felt fine after that. EMT- vitals were stable, she declined to go to ER. 2 nd episode was in winter- 8pm was getting ready for bed - in the bathroom she felt lightheaded so she turned around to go to her bed she passed out.she woke up after a few minutes. she does not have a colon - had colectomy for ulcerative colitis .she was told that she dehydrates fast and has frequent loose stools. No confusion no abnormal body movements. She still has occasional episodes of lightheadedness , she usually squats and sits down and she feels better. she had 1 episode of vertigo when she turned in bed 5 years ago she has hearing loss and has tinnitus [facility] Medical History Multinodular goiter Annual physical exam History of ulcerative colitis Kina infection COVID-19 virus infection Lateral epicondylitis of elbow Onychomycosis Shoulder fracture, right Surgical History H/O eye surgery Ulcerative colitis Family History Father CAD (coronary artery disease), Onset Age: 64 Brother Cancer of eye, Onset Age: 67 Skin cancer, Onset Age: 40 Sister Leukemia, Onset Age: 55 MDS (myelodysplastic syndrome), Onset Age: 51 Skin cancer, Onset Age: 45 Mother Lymphoma, Onset Age: 84 CAD (coronary artery disease), Onset Age: 66 Daughter Substance abuse Depression Social History Housing: House Alcohol intake: current Comment: 2 x a month 1-2 drink Patient Tobacco Use Status: Never used Tobacco Tobacco use type: Cigarette e-Cigarette/Vaping Use: Never Used Second Hand Smoke Exposure: No Current occupational status: unemployed Cognitive needs: No Hearing needs: No Vision needs: Yes Physical Exam Vital Signs: Last Vital Signs Pulse 95 11/26/24 14:25 BP 110/60 11/26/24 14:25 Pulse Ox 97 11/26/24 14:25 Oxygen Delivery Method Room Air 11/26/24 14:25 BMI result Body Mass Index 21.8 Const General: cooperative, healthy appearing, comfortable and no acute distress Nutritional Appearance: average body habitus Orientation/consciousness: patient oriented x3 Eyes Pupils: Equal, round and reactive pupils present Neuro General: patient oriented x3, gait normal, tone normal, moves all extremities and no focal motor deficits Cranial nerves: Yes Facial sensation intact/muscles of mastication intact, Yes Equal, round and reactive pupils present, Yes Bilaterally intact EOM present, Yes Nystagmus not present, Yes Normal facial strength present, Yes Midline tongue present, Yes Symmetric palate elevation present and Yes Ability to bilaterally elevate shoulders present Cognition (Neuro): normal cognition Gait exam (Neuro): Normal gait present Motor exam (neuro): 5/5 motor strength present throughout and Normal motor muscle tone present throughout Deep tendon reflexes (DTR's): Right triceps reflex intensity grade: 2+, Left triceps reflex intensity grade: 2+, Rt Biceps (C5, C6): 2+, Left biceps reflex intensity grade: 2+, Right brachioradialis reflex intensity grade: 2+, Left brachioradialis reflex intensity grade: 2+, Right patellar reflex intensity grade: 2+ and Left patellar reflex intensity grade: 2+ Coordination: [id number] test normal Assessment & Plan Assessment & Plan (1) Syncope: Comment: josefina orthostatic intolerance and syncope related to dehydartion . No clincial symptoms or signs of seizures Code(s): R55 - Syncope and collapse Category: Medical (2) Near syncope: Code(s): R55 - Syncope and collapse Category: Medical Plan Suggested to f/u with cardiology Maintain positive fluid balance Continue salt tablets Coding Level of Care Code New Pt Level 4 (16744) Diagnoses Syncope R55 Near syncope R55
[2024-11-26 14:25] VITALS: BP 110/60; PULSE 95; O2SAT 97; BMI 21.8
--- OUTSIDE RECORDS SUMMARY | 2024-11-26 18:45 | XMS_ITS | Encounter Summary ---
Author Organization [facility] Address [address] [place] [address] Phone Care Team Providers Care First Dyer Name Role Phone Bright Cain MD Primary Care Provider [phone]- [phone] Reason for Referral * Physical Therapy (Routine) - Closed Specialty Diagnoses / Procedures Referred By Contac t Referred To Contact Physical Therapy Diagnoses Encounter for rehabilitation System, Provider Not In, PhD [address] [address] Phone: tel: Referral ID Status Reason Start Date Expiration Date Visits Re quested Visits Authorized [id number] Closed 08/08/2017 12/31/2017 12 12 Encounter Details Date Type Department Care Team (Latest Contact Info) Description 08/08/2017 Transcribe Orders [facility] [address] [place] [address] Jolly Laurent DO Encounter for rehabilitation (Primary [...] Date/Time Associated Diagnosis Comments AMB REFERRAL TO [facility] PHYSICAL THERAPY Routine 08/22/2017 12:17 PM EDT Encounter for rehabilitation documented in this encounter Results * Ambulatory referral to [facility] Physical Therapy (08/22/2017 12:17 PM EDT) us Provider Not In System PhD [facility]B [facility] REFERRALS Fin al Result documented in this encounter Visit Diagnoses Diagnosis Encounter for rehabilitation- Primary documented in this encounter Care Teams First Dyer Relationship Specialty Start Date End Date Bright Cain MD [address] [place] [id number] PCP - General Internal Medicine 07/22/17 documented as of this encounter Additional Source Comments The information contained in this document represents components of the legal health record. It is not the complete legal health record.[facility]
--- OUTSIDE RECORDS SUMMARY | 2024-11-26 18:45 | XMS_ITS | Encounter Summary ---
Author Organization [facility] Address [address] [place] [address] Phone Care Team Providers Care Roll Edge Machine Operator Name Role Phone Bright Cain MD Primary Care Provider +1- [phone] Encounter Details Date Type Department Care Team (Late st Contact Info) Description 08/08/2017 Transcribe Orders [facility] Services [address] [place] [address] [place] [address] Jolly Laurent DO Social History Tobacco Use [...] on filedocumented in this encounter Care Teams Roll Edge Machine Operator Relationship Specialty Start Date End Date Bright Cain MD [address] [place] [address] PCP - General Internal Medicine 07/22/17 documented as of this encounter Additional Source Comments The information contained in this document represents components of the legal health record. It is not the complete legal health record.[facility]
--- OUTSIDE RECORDS SUMMARY | 2024-11-26 18:45 | XMS_ITS | Data Portability ---
Author Organization [place] [facility], Allergy Address [address] [place] [phone] Care Team Providers Care Can Maker Name Role Phone RADHA RUELAS Primary Care Provider Assessment Encounter Date Assessment [...] -Continue antiallergy medication Follow-up with CT sinuses Not available 09/23/2024 15:01:35 10/08/2024 10/08/2024 1. Chronic sinusitis 2. Nasal congestion 3. Recurrent sinusitis Plan: I had a long discussion with [...] -Nasal saline irrigation BID -Continue antiallergy medication -Can start flonase daily Given her imaging findings and symptoms, I recommend surgery for her maxilllary, ethmoid and sphenoid sinuses. We discussed the risks and benefits of sinus surgery including but not limited to pain, bleeding, infection, need for further surgery, septal perforation, persistent nasal obstruction, injury to the globe or skullbase, paresthesia, change in sense of smell. The patient would like to proceed. If her symptoms get better as she continues medical therapy, we can rediscuss surgery 4. Thyroid nodule Referral placed for IR guided thyroid biopsy Not available 10/08/2024 12:25:47 Plan of Treatment Reminders Order Date Submit Date Provider Last Modified By Organization Details Last Modified Time Details Appointments SURGERY 90 2024 01:30P M CRYSTAL MONACO MD Not available Not available Not available Post Op 2024 03:00P M LIBERTY WISE PA-C Not available Not available Not available Post Op 2025 03:00P M CRYSTAL MONACO MD Not available Not available Not available Lab None recorded. Referral intervent ional radiologi st referral - thyroid nodule biopsy 2024 025 [email or web address] [facility], [address], [place], [address], 11/11/2024 14:51:29 Procedures None recorded. Surgeries endoscopy , nasal/sin us, w/ maxillary antrostom y & tissue removal (SURG) 2024 025 [email or web address] Not available 10/08/2024 12:27:38 nasal/sin us endoscopy , surgical with ethmoidec asad, total, including sphenoido asad, with removal of tissue from the sphenoid sinus (SURG) 2024 025 [email or web address] Not available 10/08/2024 12:27:38 stereotac tic computer- assisted navigatio n (SURG) 2024 025 [email or web address] Not available 10/08/2024 12:27:38 endoscopy , nasal and sinus (SURG) 2024 025 [email or web address] Not available 10/08/2024 12:27:38 Imaging None recorded. Medication Orders None recorded. Patient TargetsNo targets recorded. Patient InstructionsNo instructions recorded. Reason for Referral Interventional Radiologist R mohinder for Thyroid nodule thyroid nodule biopsy Referring Physician: Crystal Monaco, Otolaryngology, Encounter Date: 10/08/2024 Results Created Date Observation Date Name Description Value Unit Range Abnormal Flag Note LastModifiedBy Organization Detail LastModifiedTime 10/22/1910/08/2024 CT, sinus es, w/o contr ast No observ ation record ed. [email or web address] [facility] [address] [place] [address], [place], [address], 10/28/2024 09:14:54 Result Notes None recorded. Problems Name Problem SNOMED Code Status Onset Date Resolution Date Notes Provider Name and Address Organization Details Recorded Time Chronic sinusitis 46172841 Active 025 CRYSTAL MONACO MD [address] [place] [address], [place], [phone], [facility] 5 15:01:44 Nasal congestion 00314980 Active 025 CRYSTAL MONACO MD [address] [facility] [address] [facility], [place], [address], [facility] 5 15:01:46 Chronic rhinitis 87403528 Active 025 CRYSTAL MONACO MD [address] [facility] [address], [place], [address], [facility] 5 15:01:47 Thyroid nodule 022998142 Active 025 CRYSTAL MONACO MD [address] [place] [address], [place], [address], [facility] - [facility] 10:28:23 Recurrent acute sinusitis 363035066 Active 025 CRYSTAL MONACO MD [address] [facility] [address], [place], [address], [facility] - [facility] 5 12:25:44 Problem Notes None recorded. Procedures Surgical History Date Name Laterality Status Provider Name and Address Organization Details Recorded Time NasalEndoscop y_DP completed CRYSTAL MONACO MD [address] [place] [address], [place], [address], [facility] - [facility] 09/23/2024 13:56:30 excision of colon completed Melinda Foreman [place] - [facility] 09/23/2024 13:56:16 Imaging Results None recorded. Procedure Notes None recorded. Medical Equipment None Reported. Allergies Allergen ID Allergen Name Allergen Category Reaction Reaction Severity Criticality Documentation Date Start Date Code Code System Note Provider Name and Address Organization Details Recorded Time 037509 Substance with sulfonami de structure and antibacte rial mechanism of action (substanc e) medicatio n Not available Not available Not available 09/23/2024 55264 8003 SNOMED Melinda Carmelitayka lai [place] - [facility] 13:51:43 525019 ciproflox acin medicatio n Not available Not available Not available 09/23/2024 2551 RxNorm Melinda Motyka lai [place] - [facility] 13:51:53 043551 isopropyl alcohol medicatio n Not available Not available Not available 09/23/2024 48676 1 RxNorm Melinda Motyka lai [place] - [facility] 13:52:17 Medications Name Sig Start Date Stop Date Status Note LastModified by Organization Details LastModified Time prednisone 10 mg tablet PLEASE SEE ATTACHED FOR DETAILED DIRECTIONS active Not Available Not Available N ot Available doxycycline hyclate 100 mg capsule TAKE 1 CAPSULE BY MOUTH TWICE A DAY active Not Available Not Available No t Available valacyclovir 1 gram tablet TAKE 1 TABLET BY MOUTH EVERY DAY active Not Available Not Available No [...] Updated DateTime 09/23/2024 165.61 cm 21.5 kg/m2 94554.01 g Melinda Foreman [place] - [facility] 09/23/2024 13:51:28 Social History None recorded. Functional Status None recorded. Mental Status None recorded. Family History Nothing Reported. Medical History Condition Response Tonsil Infections N Emphysema N Depression N COPD N Arthritis Y Cancer N Stroke N Headaches N Fibromyalgia N Kidney Disease N Heart Problems N Anxiety N Migraines N Other Skin Condition N Rhinitis N Bleeding Disorder N Food Allergy N Nasal polyps N Asthma N Sleep Disorder N GERD/Reflux N Glaucoma N Nasal or Sinus Problems N Anesthesia Complications N Hearing Loss N High Cholesterol N Liver Disease N Speech Delay N Allergies/Hayfever N Thyroid Problems Y Developmental Delay N Anemia Y Immune System Disorder N Heart Attack (MT) N Diabetes N Hyperlipidemia N Dementia N Hypertension N Gynecological HistoryNo gynecological history recorded. Obstetrics History GPAL:G 0 P 0 0 0 0 Past Encounters Encounter ID Performer Location Encounter Start Date Encounter Closed Date Diagnosis/Indication Diagnosis SNOMED-CT Code Diagnosis ICD10 Code Diagnosis IMO Codes Diagnosis Note [id number] CRYSTAL MONACO MD [facility] [address] [address] 09/23/2024 13:25:42 09/23/2024 14:11:16 Chronic sinusitis 47234549 J32.9 502220758 Nasal congestion 0857211 0 R09.81 44428 Chronic rhinitis 1057473 6 J31.0 2545 [id number] CRYSTAL MONACO MD [facility] [address] [place] [address] 10/08/2024 09:18:41 10/08/2024 10:37:24 Thyroid nodule 900843016 E04.1 56531 Chronic rhinitis 7769657 6 J31.0 2545 Recurrent acute sinusitis 680103676 J01.91 997982505 Health Concerns Section Related Observation LastModified by Organization Detai ls LastModified Time None Recorded Concern Status LastModified by Organization Details LastModified Time None Recorded Advance Directives Directive None Recorded Payers Insurance Date Sequence Insurance Name Policy Number Policy Flower Covered Member ID Flower Member ID Guarantor Name 11/09/2024 1 [place] (MEDICARE [place]PLACEMENT PPO) [id number] Milana Mendoza [id number] Milana Mendoza 11/09/2024 2 [place] [facility] Milana Mendoza [id number] Milana Mendoza Notes Date Note Type Note Provider Name and Address Organization Details Recorded Time 5 text/html ROS as noted in the HPI She has frequent sinus infection for > the last 1 yearShe has been using claritin.Started using enmanuel. Associated symptoms: green drainage, nasal congestion Medications trialed: see above, also irrigations History of seasonal allergies: yes History of prior nasal trauma: noHistory of recurrent, acute, or chronic sinusitis: yes, chronic History of prior nasal surgery: no No smokingNo other health problems CRYSTAL MONACO MD [address] [place] [address], [phone], [facility] - [facility] 09/23/2024 15:02:00 5 text/html She has frequent sinus infection for > the last 1 yearShe has been using claritin.Started using enmanuel.Associated symptoms: green drainage, nasal congestionMedications trialed: see above, also irrigationsHistory of seasonal allergies: yesHistory of prior nasal trauma: noHistory of recurrent, acute, or chronic sinusitis: yes, chronicHistory of prior nasal surgery: noNo smokingNo other health problems CT imaging was obtained todayThis showed moderate thickening of bilateral maxillary, ethmoid, and sphenoid sinuses CRYSTAL MONACO MD [address] [place] [address], [phone], [facility] - [facility] 10/08/2024 12:26:24 OBGyn Episode No OBEpisode recorded.
--- OUTSIDE RECORDS SUMMARY | 2024-11-26 18:45 | XMS_ITS | Clinical Summary ---
Author Organization [facility] Address [address] [place] [address] Phone Care Team Providers Care Cane Weigher Helper Name Role Phone Bright Cain MD Primary Care Provider +1- [phone] Social History Tobacco Use Types Packs/Day Years [...] topic Medical Devices Not on file Insurance [facility] PPO [facility] PPO [facility] PPO [facility] [place] [address] [place] [address] PPO [facility] PPO Care Teams Cane Weigher Helper Relationship Specialty Start Date End Date Bright Cain MD [address] [place] [address] PCP - General Internal Medicine 07/22/17 Additional Source Comments The information contained in this document represents components of the legal health record. It is not the complete legal health record.[facility]
== END 2024-11-26 15:12 | disposition home or self-care (01) ==
LOC: HO.HSMS 14:22
PROVIDERS: PCP Internal Medicine; Visit Provider Psychiatry & Neurology Neurology
DX: R55 Syncope and collapse (principal)
CPT/HCPCS: 99204

== ENCOUNTER → 2024-11-26 14:21 | Outpatient (BNVA) | payer MEDICARE, MEDICAID, SELFPAY | PROVIDERS: PCP Internal Medicine; Visit Provider Psychiatry & Neurology Neurology | DX: R55 Syncope and collapse (principal) | CPT/HCPCS: 99202 ==

== ENCOUNTER → 2024-12-04 13:09 | Outpatient (REF) | payer MEDICARE, MEDICAID, SELFPAY ==
--- NOTE | 2024-12-04 13:13 | CA_ITS ---
Transthoracic Echocardiogram Patient (Last, First, Middle): Milana Mendoza M Gender: Female Date of : 1955 Age: 69 Procedure Date: 12/04/2024 Procedure Type: Transthoracic Echocardiogram Location: OP Height: 165. cm Weight: 61.24 kg BSA: 1.67 m2 Heart Rate: 74 bpm BP: 115 / 70 mmHg Press Box Custodian: CESAR Referring MD: Geo Graham MD Symptoms: R55 - Syncope and collapse Study Quality: Adequate ECG Rhythm: Sinus Conclusions: - The left ventricular systolic function is hyperdynamic. The visually estimated ejection fraction is >70%. - No obvious valvular pathology seen on this study. Findings Left Ventricle Normal left ventricular cavity size. There is normal left ventricular wall thickness. The left ventricular systolic function is hyperdynamic. The visually estimated ejection fraction is >70%. There is no evidence of regional wall motion abnormalities. Diastolic function is normal for age. Right Ventricle Normal right ventricular cavity size and systolic function. Atria Both atria are normal in size. Aortic Valve There is a normal trileaflet aortic valve. There is no aortic valve stenosis. There is trace (trivial) aortic valve regurgitation. Mitral Valve The mitral valve appears normal. There is no mitral valve regurgitation. There is no mitral valve stenosis. Pulmonic Valve The pulmonic valve is likely normal. Tricuspid Valve There is trace tricuspid valve regurgitation. There is no evidence of pulmonary hypertension. Great Vessels The asc aorta and aortic arch are normal in size. Venous The inferior vena cava is normal in size and collapses greater than 50% with inspiration. Pericardium/Pleural There is no evidence of pericardial effusion. Prior Study Comparison No prior study available for comparison. Recommendations, Care & Conclusions No obvious valvular pathology seen on this study. Measurements 2D Linear Measurements IVSd: 0.87 0.6-0.9/0.6-1.0 cm LVIDd: 3.65 3.9-5.3/4.2-5.9 cm LVIDd Index: 2.19 2.4-3.2/2.2-3.1 cm/m2 LVIDs: 1.58 2.0-3.6 cm LVPWd: 0.86 0.7-1.1 cm LA Diam: 3.10 2.7-3.8/3.0-4.0 cm LAIDs Index: 1.86 1.5-2.3 cm/m2 LV Mass: 111.20 67-162/88-224 g LV Mass Index: 66.59 43-95/49-115 g/m2 LVOT Diam: 1.90 3.0+(-)1.3 cm 2D Systolic Function EF 4C: 70.10 >55% EF 2C: 75.00 >55% EF BiP: 73.20 >55% Mitral Valve MV Pk E: 0.73 MV PK A: 0.86 MV Decel Time: 285.00 E/A: 0.90 E'Lateral: 6.96 E'Medial: 6.96 E/E' Med: 10.50 E/E' Lat: 10.50 PHT: 84.00 MVA PHT: 2.62 Decel Lasalle: 2.57 Aortic Valve AoV Pk Ney: 1.66 AoV Mn Ney: 1.24 AoV VTI: 0.35 AoV Pk Grad: 11.00 Aov Mn Grad: 7.00 BERTHA Cont.VTI: 2.50 AI Pk Ney: 4.06 AI Lasalle: 2.20 LVOT LVOT Pk Ney: 1.81 LVOT Mn Ney: 1.09 LVOT VTI: 0.30 LVOT Pk Grad: 13.00 LVOT Mn Grad: 6.00 LVOT Diam: 1.90 LVOT Area: 2.84 Diastolic Function MV Pk E: 0.73 MV Pk A: 0.86 E/A: 0.90 E'Medial: 6.96 E/E' Med: 10.50 E' Laterial: 6.96 E/E' Lat: 10.50 Right Ventricle TAPSE (mm): 23.80 TVS' Ney: 13.80 Tricuspid Valve TR Pk Ney: 1.86 TR Pk Grad: 14.00 RA Press: 3.00 RVSP: 17.00 Great Vessels Aorta Sinus of Valsalva: 2.80 2.0-3.5 cm Ao Asc: 3.00 2.1-3.4 cm Ao Arch: 2.60 Pulmonary Veins Pulm Vein S/D 1.20 Pulmonary Valve PV Pk Ney: 1.07 Peak PV Grad: 5.00 Updated in Other Vendor System with Status of Final Freedom De La Cruz MD electronically signed on 12/06/2024 2:17:54 PM with status of Final
--- OUTSIDE RECORDS SUMMARY | 2024-12-04 13:33 | XMS_ITS | Encounter Summary ---
Author Organization [facility] Address [address] [place] [address] Phone Care Team Providers Care Tankage Supervisor Name Role Phone Bright Cain MD Primary Care Provider +1- [phone] Reason for Referral * Physical Therapy (Routine) - Closed Specialty Diagnoses / Procedures Referred By Contac t Referred To Contact Physical Therapy Diagnoses Encounter for rehabilitation System, Provider Not In, PhD [address] [address] Phone: tel: Referral ID Status Reason Start Date Expiration Date Visits Re quested Visits Authorized [id number] Closed 08/08/2017 12/31/2017 12 12 Encounter Details Date Type Department Care Team (Latest Contact Info) Description 08/08/2017 Transcribe Orders [facility] [address] [place] [address] Jolly Laurent DO Encounter for rehabilitation (Primary [...] Date/Time Associated Diagnosis Comments AMB REFERRAL TO [facility] PHYSICAL THERAPY Routine 08/22/2017 12:17 PM EDT Encounter for rehabilitation documented in this encounter Results * Ambulatory referral to [facility] Physical Therapy (08/22/2017 12:17 PM EDT) us Provider Not In System PhD [facility]B [facility] REFERRALS Fin al Result documented in this encounter Visit Diagnoses Diagnosis Encounter for rehabilitation- Primary documented in this encounter Care Teams Tankage Supervisor Relationship Specialty Start Date End Date Bright Cain MD [address] [place] [address] PCP - General Internal Medicine 07/22/17 documented as of this encounter Additional Source Comments The information contained in this document represents components of the legal health record. It is not the complete legal health record.[facility]
--- OUTSIDE RECORDS SUMMARY | 2024-12-04 13:33 | XMS_ITS | Encounter Summary ---
Author Organization [facility] Address [address] [place] [address] Phone Care Team Providers Care Gate Mortiser Operator Name Role Phone Bright Cain MD Primary Care Provider [phone] Encounter Details Date Type Department Care Team (Late st Contact Info) Description 08/08/2017 Transcribe Orders [facility] [address] [place] [address] [place] [address] Jolly Laurent DO Social History Tobacco Use [...] on filedocumented in this encounter Care Teams Gate Mortiser Operator Relationship Specialty Start Date End Date Bright Cain MD [address] [place] [id number] PCP - General Internal Medicine 07/22/17 documented as of this encounter Additional Source Comments The information contained in this document represents components of the legal health record. It is not the complete legal health record.[facility]
--- OUTSIDE RECORDS SUMMARY | 2024-12-04 13:33 | XMS_ITS | Clinical Summary ---
Author Organization [facility] Address [address] [place] [address] Phone Care Team Providers Care Loss Prevention Lead Name Role Phone Bright Cain MD Primary Care Provider [phone]- [phone] Social History Tobacco Use Types Packs/Day Years [...] topic Medical Devices Not on file Insurance [employer] PPO [employer] [facility] [place] [place] [address] [address] PPO [employer] PPO Care Teams Loss Prevention Lead Relationship Specialty Start Date End Date Bright Cain MD [address] [place] [id number] PCP - General Internal Medicine 07/22/17 Additional Source Comments The information contained in this document represents components of the legal health record. It is not the complete legal health record.[facility]
--- OUTSIDE RECORDS SUMMARY | 2024-12-04 13:33 | XMS_ITS | Clinical Summary ---
Author Organization [facility] Address [address] [place] [address] Care Team Providers Care Real Estate Management Specialist Name Role Phone Shikha Fleming MD Primary Care Provider [phone] Surgical History Surgery Date Site/Laterality Comments OTHER SURGICAL HISTORY 1985 PROCEDURE: ---- OTHER ----; COMMENT: J-pouch, after colon removed Medical History Medical History Date Comments Osteopenia 10/22/2015 DX:Osteopenia Uterine fibroid 10/22/2015 DX:Uterine fibro id Hearing loss 06/27/2020 DX:Hearing loss Sebaceous cyst 06/27/2020 DX:Sebaceous cys t Chronic pelvic pain in female 06/18/2017 DX :Chronic pelvic pain in female Chronic right shoulder pain 03/15/2017 DX:C hronic right shoulder pain History of ulcerative colitis 09/02/2015 DX :History of ulcerative colitis; COMMENT: Surgery 1985 Ben, small intestine to rectum Post herpetic neuralgia 10/18/2015 DX:Post herpetic neuralgia Family History Medical History Relation Name Comments Breast cancer Aunt 1 m 40 Breast cancer Aunt 2 m 80s Diabetes Brother 1 Other: retinoblastoma Brother 2 possib le Melanoma Brother 3 Coronary artery disease Father Diabetes Father CAD, hypertensi on Hypertension Father Coronary artery disease Mother Colon cancer Other niece; MSide Myelodysplastic syndrome Sister and leukemia Relation Name Status Comments Aunt 1 m 40 Alive Aunt 2 m 80s Alive Brother 1 Brother 2 Brother 3 Father Mother Other Sister Social History Tobacco Use Types Packs/Day Years Used Date Smoking Tobacco: Never Smokeless Tobacco: Never Alcohol Use Standard Drinks/Week Comments Not Currently 0 (1 standard drink = 0.6 oz pur e alcohol) Comments Unknown Sex and Gender Information Value Date Recorded Sex Assigned at Not on file Legal Sex Female 4:53 PM EST Gender Identity Not on file Sexual Orientation Not on file Obstetrics History Plan of Treatment Upcoming Encounters Date Type Department Care Team (Late st Contact Info) Description 02/23/2025 2:30 PM EST Appointment [facility] [address] [place] [address] Health Maintenance Due Date Last Done Comments Colorectal Cancer Screening: Colonoscopy 1955 DTaP,Tdap,and Td Vaccines (1 - Tdap) 11/03/1975 Pneumococcal Vaccine: 50+ Years (1 of 1 - PCV) 2006 Zoster Vaccines (1 of 2) 2006 Breast Cancer Screening 03/06/2020 03/06/19 19, 03/05/2018, 02/08/2017 Depression Screening 03/04/2024 COVID-19 Vaccine (1 - 2023-2 5 season) 2024 Influenza Vaccine (#1) 2024 Falls Risk Assessment 11/06/2024 Hepatitis C Screening 11/06/2024 Medicare Annual Wellness Visit 11/06/2024 Osteoporosis Screening (Bone Density Screening) 11/06/2024 Social Influencers of Health Screening 11/06/2024 RSV Immunization Adult Patients (1 - 1-dose 75+ series) 11/03/2031 HIB Vaccines Aged Out No longer eligi ble based on patient's age to complete this topic HPV Vaccines Aged Out No longer eligi ble based on patient's age to complete this topic Hepatitis A Vaccines Aged Out No long er eligible based on patient's age to complete this topic Hepatitis B Vaccines Aged Out No long er eligible based on patient's age to complete this topic IPV Vaccines Aged Out No longer eligi ble based on patient's age to complete this topic MMR Vaccines Aged Out No longer eligi ble based on patient's age to complete this topic Meningococcal ACWY Vaccine Aged Out N o longer eligible based on patient's age to complete this topic Meningococcal B Vaccine Aged Out No l onger eligible based on patient's age to complete this topic RSV Immunization Patients Under 20 months Aged Out No longer eligible b ased on patient's age to complete this topic Varicella Vaccines Aged Out No longer eligible based on patient's age to complete this topic Procedures Procedure Name Priority Date/Time Associated Diagnosis Comments DX MAMMO INCL CAD UNI Routine 03/06/2018 1:33 PM EST Other abnormal and inconclusive findings on diagnostic imaging of breast from Last 3 Months or Most Recently Relevant to Health Maintenance Results * DX MAMMO INCL CAD UNI (03/06/2018 1:33 PM EST) Anatomical Region Laterality Modality Mammography 03/06/2018 10:0 6 AM EST Narrative 03/06/2018 2:02 PM EST This is a summary report. The complete report is available in the patient's medical record. If you cannot access the medical record, please contact the sending organization for a detailed fax or copy. Left breast mammogram, additional views. Limited left breast ultrasound. Exaggerated laterally spot compression cc view of the left breast was obtained as well as straight lateral view to follow 03/05/18 exam. Circumscribed nodular opacity in the most lateral posterior left breast was confirmed on spot compression exaggerated laterally CC view and was not visible on straight lateral view. Limited ultrasound of the lateral right breast was performed. There is a clear cyst at 3:00, 6 cm from the nipple measuring 0.8 x 0.8 x 0.6 cm. No solid masses or acoustic shadowing identified. Conclusions: Mammographic abnormality corresponds to small nonsymptomatic clear cyst. Findings were explained to the patient. Follow-up mammogram is recommended at the time of the annual screening. BI-RADS 2, benign findings.. Procedure Note Sonia Chang MD - 02/20/2022 This is a summary report. The complete report is available in thepatient's medical record. If you cannot access the medical record, pleasecontact the sending organization for a detailed fax or copy. Left breast mammogram, additional views. Limited left breast ultrasound. Exaggerated laterally spot compression cc view of the left breast wasobtained as well as straight lateral view to follow 03/05/18 exam. Circumscribed nodular opacity in the most lateral posterior left breastwas confirmed on spot compression exaggerated laterally CC view and wasnot visible on straight lateral view. Limited ultrasound of the lateral right breast was performed. There is aclear cyst at 3:00, 6 cm from the nipple measuring 0.8 x 0.8 x 0.6 cm. Nosolid masses or acoustic shadowing identified. Conclusions: Mammographic abnormality corresponds to small nonsymptomaticclear cyst. Findings were explained to the patient. Follow-up mammogram isrecommended at the time of the annual screening. BI-RADS 2, benign findings.. Jolly Pardo DO IMG BI PROCEDURES Final Result from Last 3 Months or Most Recently Relevant to Health Maintenance [place] Care Teams Real Estate Management Specialist Relationship Specialty Start Date End Date Shikha Fleming MD [address] [place] [address] [address] [facility] [place] [address] PCP - General Internal Medicine 05/19/20
== END ==
LOC: HO.CARD 13:09
PROVIDERS: PCP Internal Medicine; Visit Provider Internal Medicine Cardiovascular Disease
DX: R55 Syncope and collapse (principal)
CPT/HCPCS: 93270; 93306

== ENCOUNTER → 2024-12-04 13:13 | Outpatient (BNV) | payer MEDICARE, MEDICAID, SELFPAY | PROVIDERS: PCP Internal Medicine; Visit Provider Internal Medicine | DX: I51.89 Other ill-defined heart diseases (principal); R55 Syncope and collapse | CPT/HCPCS: 93306 ==

== ENCOUNTER 2024-12-11 10:10 | Outpatient (REF) | payer MEDICARE, MEDICAID, SELFPAY ==
[2024-12-11 13:25] LABS: Hematocrit 40.5 % (37.0-47.0); Hemoglobin 12.9 g/dl (12.0-16.0); Mean Corpuscular HGB Conc 31.9 g/dl (31.0-35.0); Mean Corpuscular Hemoglobin 28.6 pg (27.0-33.0); Mean Corpuscular Volume 89.8 fL (80.0-98.0); NRBC Abs Auto 0.000 X10*3/uL (0.0-0.012); NRBC Pct Auto 0.0 /100WBC (0.0-0.2); Platelet Count 314 X10*3/uL (160-400); Red Blood Count 4.51 X10*6/uL (4.20-5.50); White Blood Count 6.2 X10*3/uL (4.8-10.8)
[2024-12-11 13:30] LABS: INTERNATIONAL NORM RATIO 1.1 (0.9-1.1); Prothrombin Time 12.1 SEC (10.9-12.4)
[2024-12-11 13:50] LABS: Anion Gap 10 (12-20); Blood Urea Nitrogen 13 mg/dL (9-16); Calcium 9.5 mg/dL (8.4-10.2); Carbon Dioxide 29 mmol/L (22-29); Chloride 109 mmol/L (96-108); Estimated Glomerular Filt Rate > 60; Magnesium 2.1 mg/dL (1.6-2.6); Potassium 4.1 mmol/L (3.3-5.1); Sodium 144 mmol/L (135-145)
== END 2024-12-11 10:11 | disposition home or self-care (01) ==
LOC: HO.HMGCLDS 10:10
PROVIDERS: PCP Internal Medicine; Visit Provider Internal Medicine Cardiovascular Disease
DX: I50.30 Unspecified diastolic (congestive) heart failure (principal); I47.29 Other ventricular tachycardia; R55 Syncope and collapse
CPT/HCPCS: 36415; 80048; 83735; 85027; 85610

== ENCOUNTER → 2024-12-18 23:59 | Outpatient (BNV) | payer MEDICARE, MEDICAID, SELFPAY | PROVIDERS: PCP Internal Medicine; Visit Provider Internal Medicine Cardiovascular Disease | DX: R94.39 Abnormal result of other cardiovascular function study (principal) | CPT/HCPCS: 93458 ==

== ENCOUNTER 2025-01-20 08:31 | Outpatient (AMB) | payer MEDICARE, SELFPAY ==
--- NOTE | 2025-01-20 08:35 | MHC.PC.OV ---
Vital Signs 01/20/25 08:36 Height 5 ft 6.5 in Weight 131 lb BMI 20.8 BP 120/68 Blood Pressure Location Lt brachial Position Sitting Pulse 83 Pulse Source Pulse Oximeter Pulse Oximetry (%) 98 Oxygen Delivery Method Room Air Intake Visit Reasons: 6mth Follow Up Allergies Echinacea Allergy (Intermediate, Verified 01/20/25 08:36) rash isopropyl alcohol Allergy (Intermediate, Verified 01/20/25 08:36) rash Sulfa (Sulfonamide Antibiotics) Allergy (Mild, Verified 01/20/25 08:36) Rash ciprofloxacin (From Cipro) Adverse Reaction (Severe, Verified 01/20/25 08:36) leg cramps metronidazole Adverse Reaction (Mild, Verified 01/20/25 08:36) Abdominal Pain fragrance floral Allergy (Intermediate, Uncoded 01/20/25 08:36) congestion and BEDOYA Medication List - Last Reconciled 01/20/25 by Shikha Fleming, acyclovir 200 mg PO TID PRN diphenoxylate-atropine 2.5-0.025 mg (Lomotil) 1 tab PO BEDTIME PRN fexofenadine (Ale Allergy) 180 mg PO DAILY metoprolol succinate ER (Toprol XL) 25 mg PO DAILY multivitamin 1 tab PO DAILY [Standard Process 1 cap PO 10XD] Tobacco use date assessed: 05/27/24 Fall risk assessment: No Falls in past year Last assessed Fall Risk: 01/20/25 Dental Screening Dental Screen Date: 05/27/24 HPI 6mth Follow Up HPI Details sinus congestion and seen ENT planned surgery but patient not fond on this. advised nasacort /nasonex. complains L shoulder pain HPI Comments History of Present Illness Details History of Present Illness The patient is a 69-year-old female presenting for a follow-up visit for management of multiple chronic conditions including cardiac issues, multinodular goiter, and osteopenia, as well as to address new onset left shoulder pain. The patient has a history of nonsustained ventricular tachycardia and syncopal episodes, for which she has undergone an extensive cardiology workup under Dr. Funez. A cardiac MRI in January was normal, with an ejection fraction of 63% and no evidence of valve dysfunction, fibrosis, inflammation, or infarction. A cardiac catheterization showed right dominant circulation with no significant coronary artery disease, and her CT coronary artery calcium score was negative. A 30-day event monitor was performed, and a Holter monitor did show some EKG changes. She was also referred to neurology for syncope, and her EEG was negative. Past medical history is also significant for ulcerative colitis, for which she underwent a colectomy in July 2024, and multinodular goiter. A thyroid biopsy performed on September 10 was nondiagnostic. She also has a history of osteopenia, with her last bone density scan in August 2024; a scan in 2022 showed a 5% weakening in her spine compared to a previous exam. 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 She has been seeing a chiropractor for this and recalls a fall a few months ago, though she also suspects it could be from lifting her grandchildren. The patient also has a history of allergies and sinus congestion, for which she has tried Claritin and Afrin. She experienced a sore throat with past use of Flonase. Health Maintenance - Last bone density scan was in August 2024, which confirmed osteopenia. - Last mammogram was in July 2024. - Post-colectomy for ulcerative colitis in July 2024; advised to continue follow-up with gastroenterology. - Dermatology evaluation of a skin lesion resulted in a recommendation for excision. - Patient reports receiving the second of a two-part shingles vaccine last month. Social History - The patient lives with and cares for two young grandchildren, weighing 26 and 32 pounds, and may lift them. Results - Labs (December 11): Normal complete blood count with no anemia, normal electrolytes, and normal renal function. - Labs (July 2024): LDL 112 mg/dL, thyroid function normal. - Cardiac MRI (January): Normal right and left atria, EF 63%, and no evidence of significant valve dysfunction, myocardial fibrosis, edema, inflammation, or infarction. - Cardiac Catheterization: Results showed right dominant circulation and no significant coronary artery disease. - CT Coronary Artery Calcium Scoring: Negative. - Holter monitor: Showed EKG changes. - 30-day event monitor: Study was performed, results not detailed. - EEG: Negative. - Thyroid Biopsy (September 10): Nondiagnostic. - Bone Density (August 2024): confirmed osteopenia. - Skin Biopsy (right back): Compound nevus with mild to moderate atypia. [facility] Medical History Multinodular goiter Annual physical exam History of ulcerative colitis Kina infection COVID-19 virus infection Lateral epicondylitis of elbow Onychomycosis Shoulder fracture, right Surgical History H/O eye surgery Ulcerative colitis Family History Father CAD (coronary artery disease), Onset Age: 64 Brother Cancer of eye, Onset Age: 67 Skin cancer, Onset Age: 40 Sister Leukemia, Onset Age: 55 MDS (myelodysplastic syndrome), Onset Age: 51 Skin cancer, Onset Age: 45 Mother Lymphoma, Onset Age: 84 CAD (coronary artery disease), Onset Age: 66 Daughter Substance abuse Depression Social History Housing: House Alcohol intake: current Comment: 2 x a month 1-2 drink Patient Tobacco Use Status: Never used Tobacco Tobacco use type: Cigarette e-Cigarette/Vaping Use: Never Used Second Hand Smoke Exposure: No Current occupational status: unemployed Cognitive needs: No Hearing needs: No Vision needs: Yes Questionnaire Thrive Questionnaire Date Thrive assessed: 07/20/24 I am a: Patient What is your living situation today?: I have a steady place to live Within the past 12 months, did the food you bought not last and you didn't have the money to get more?: I choose not to answer this question Within the past 12 months, did you worry whether your food would run out before you got money to buy more?: I choose not to answer this question Do you have trouble paying for medicines?: I choose not to answer this question Do you have trouble getting transportation to medical appointments?: I choose not to answer this question Do you have trouble paying your heating and electricity bill?: I choose not to answer this question Do you have trouble taking care of your child, family member or friend?: I choose not to answer this question Do you have trouble with day-to-day activities such as bathing, preparing meals, shopping, managing finances, etc.?: I choose not to answer this question Are you currently unemployed and looking for a job?: I choose not to answer this question Are you interested in more education?: I choose not to answer this question Please select the resources that you would like help with: None Currently or been in a relationship where the following occur: I choose not to answer THRIVE Score: 0 IAN-7 AMB Questionnaire IAN-7 Date IAN - 7 assessed: 05/27/24 Source: Developed by Drs. Nuno Licona, Yudy Carson, Michael Ching and colleagues, with an educational katharine from [employer]. Review of Systems Narrative Review of Systems - Cardiovascular: Reports history of syncope. - Musculoskeletal: Reports left upper arm pain with movement, described as a pulling sensation. - HEENT: Reports sinus congestion. - Constitutional: Denies current sore throat. Physical exam (Primary Care) Vital Signs: Last Vital Signs Pulse 83 01/20/25 08:36 BP 120/68 01/20/25 08:36 Pulse Ox 98 01/20/25 08:36 Oxygen Delivery Method Room Air 01/20/25 08:36 BMI result Body Mass Index 20.8 Tobacco/Smoking Status: Tobacco use Status Tobacco use date assessed 05/27/24 01/20/25 08:38 Patient Tobacco Use Status Never used Tobacco 01/20/25 08:38 Tobacco use type Cigarette 01/20/25 08:38 e-Cigarette/Vaping Use Never Used 01/20/25 08:38 Thrive Assessment: Date of Thrive Assessment Date Thrive assessed 07/20/24 01/20/25 08:38 Currently or been in a relationship where the following occur: I choose not to answer Narrative Physical Exam - Neck: Palpation reveals persistent thyroid nodules. The right side is slightly larger than the left. - Oropharynx: Mucosa appears normal without erythema or exudate. - Musculoskeletal: On examination of the left shoulder, there is tenderness to palpation over the anterior tendon. Pain is noted with movement. Const General: alert; No acute distress Eyes Conjunctivae: conjunctivae normal Resp Auscultation: clear to auscultation bilaterally Cardio Rate: regular rate Rhythm: regular rhythm GI Inspection: Yes normal to inspection Extrem General: Yes normal to inspection and No edema Coding Level of Care Code Est Pt Level 4 (93051) Complex EM visit Add On G2211 Diagnoses Nonsustained ventricular tachycardia I47.29 Thyroid nodule E04.1 Osteopenia of spine M85.88 Osteopenia location: spine History of ulcerative colitis Z87.19 Syncope R55 Shoulder pain, left M25.512 Assessment & Plan Assessment & Plan (1) Nonsustained ventricular tachycardia: Code(s): I47.29 - Other ventricular tachycardia Category: Medical Plan: Patient has been seeing cardiology has had extensive workup did show on the Holter changes in the EKG but blood supply/coronary arteries good. Discussed about orthostatic problems also. (2) Thyroid nodule: Comment: August 2024 There is a 2.7 cm TR category 5 nodule in the right lower pole. FNA advised. 2. There is a 2.0 cm TR category 4 nodule in the right mid pole. FNA is advised. 3. There is a 1.8 cm TR category 4 nodule in the left lower pole. FNA is advised. 4. The surrounding thyroid parenchyma appears normal. Code(s): E04.1 - Nontoxic single thyroid nodule Category: Medical Plan: Biopsy was nondiagnostic (3) Osteopenia: Code(s): M85.80 - Other specified disorders of bone density and structure, unspecified site Category: Medical Qualifiers: Osteopenia location: spine Qualified Code(s): M85.88 - Other specified disorders of bone density and structure, other site Plan: Discussed about calcium and vitamin-D and other options to help with the bones (4) History of ulcerative colitis: Comment: History of proctocolectomy, jazmine pouchoscopy 07/2024 Code(s): Z87.19 - Personal history of other diseases of the digestive system Category: Medical Plan: Continue to follow-up with Gastroenterology (5) Syncope: Comment: josefina orthostatic intolerance and syncope related to dehydartion . No clincial symptoms or signs of seizures Code(s): R55 - Syncope and collapse Category: Medical Plan: Patient has done workup under neurology EEG negative advised to follow-up with cardiology (6) Shoulder pain, left: Code(s): M25.512 - Pain in left shoulder Category: Medical Plan Plan Patient was informed and verbally consented to the use of an ambient scribe for clinic note documentation during this visit. 1. Nonsustained Ventricular Tachycardia And Syncope The patient has had an extensive but largely negative cardiac and neurologic workup for these issues. A tilt table test is scheduled for next week to further assess for an orthostatic cause of syncope. The patient will continue to follow up with cardiology and is scheduled to see Dr. Funez on February 23. 2. Left Shoulder Pain The patient has been experiencing left shoulder pain for a few months, with exam findings suggestive of tendinitis. An X-ray of the left shoulder has been ordered to rule out underlying pathology. The patient was advised to apply heat to the area three times daily and to perform stretching exercises. If symptoms do not improve, a referral for physical therapy will be considered. 3. Allergic Rhinitis The patient was advised to discontinue Afrin nasal spray due to the risk of rebound congestion with prolonged use. It was recommended she try an [id number], water-based steroid nasal spray, such as Nasacort or Nasonex, as an alternative to the alcohol-based Flonase which caused a sore throat in the past. 4. Multinodular Goiter Physical exam confirms persistent thyroid nodules, which are slightly more prominent on the right. Given a prior nondiagnostic biopsy, the plan is to continue monitoring at this time, with no new interventions planned. 5. Osteopenia The management of osteopenia was discussed, including the roles of calcium and vitamin D supplementation and other bone-strengthening options. The plan is to continue with these supportive measures. 6. History Of Ulcerative Colitis, S/P Colectomy It was recommended that the patient continue to follow up with her correctional substance abuse counselor for routine surveillance. 7. Compound Nevus With Atypia The patient was previously advised by dermatology to have the lesion excised. No new plan was made regarding this issue during the current visit. Discussion Notes I reviewed the patient's extensive, yet largely unremarkable, cardiac and neurologic workup for her syncope and advised her to proceed with the scheduled tilt table test to investigate for orthostasis. For her new left shoulder pain, which is likely tendinitis, I ordered an X-ray to ensure no underlying bony pathology and recommended conservative management with heat and stretching, explaining that physical therapy is an option if she does not improve. We discussed her nasal congestion, and I explained the risk of rebound congestion from overusing Afrin and suggested she try a water-based steroid spray like Nasacort or Nasonex, which may be better tolerated than Flonase. We also discussed her osteopenia and the importance of calcium and vitamin D. Patient Instructions - Obtain an X-ray of your left shoulder. - For your shoulder pain, apply heat for 3 to 5 minutes, 3 times per day. - Continue your stretching exercises for the shoulder. - Stop using Afrin nasal spray for more than 2-3 days at a time to prevent your congestion from getting worse. - You may try [id number] Nasacort or Nasonex nasal spray for your allergies. - Proceed with your scheduled tilt table test. - Continue to follow up with your correctional substance abuse counselor and allergy and immunology specialist. Orders: Orders XR shoulder LT min 2V Today M25.512 - Pain in left shoulder
[2025-01-20 08:36] VITALS: BP 120/68; PULSE 83; O2SAT 98; BMI 20.8
--- OUTSIDE RECORDS SUMMARY | 2025-01-20 16:16 | XMS_ITS | Encounter Summary ---
Author Organization [facility] Address [address] [place] [address] [place] [address] Phone Care Team Providers Care Doughnut Fryer Name Role Phone Bright Cain MD Primary Care Provider [phone] Shikha Fleming MD Primary Care Provider [phone] Encounter Details Date Type Department Care Team (Late st Contact Info) Description 08/08/2017 Transcribe Orders [facility] [address] [place] [address] Jolly Laurent DO Social History Tobacco Use Types Packs/Day Years Used Date Smoking Tobacco: Never Assessed Comments Unknown Sex and Gender Information Value Date Recorded Sex Assigned at Not on file Legal Sex Female 12:59 PM EDT Gender Identity Not on file Sexual Orientation Not on file documented as of this encounter Plan of Treatment Upcoming Encounters Date Type Department Care Team (Late st Contact Info) Description 03/10/2025 3:00 PM EST Office Visit [facility] [address] [facility], [address] [place] [address] Tere Mcnair MD [address] [place] [id number] [email or web address] documented as of this encounter Visit Diagnoses Not on filedocumented in this encounter Care Teams Doughnut Fryer Relationship Specialty Start Date End Date Bright Cain MD [facility] [place] [address] PCP - General Internal Medicine 07/22/17 12/30/24 Shikha Fleming MD [address] [place] [address] [place] [address] PCP - General Internal Medicine 12/31/24 documented as of this encounter Additional Source Comments The information contained in this document represents components of the legal health record. It is not the complete legal health record.[facility]
--- OUTSIDE RECORDS SUMMARY | 2025-01-20 16:16 | XMS_ITS | Data Portability ---
Author Organization [place] [facility], [facility] Address [address] [place] [phone] Care Team Providers Care Triage Nurse Name Role Phone RADHA RUELAS Primary Care [...] Not available Post Op 2024 03:00P M PAVAN LEYVA Not available Not available Not available Post Op 2025 03:00P M CRYSTAL MONACO MD Not available Not available Not available Lab None recorded. Referral intervent ional radiologi st referral - thyroid nodule biopsy 2024 025 [email or web address] [facility], [address] [facility], [place], [address], 11/11/2024 14:51:29 Procedures None recorded. Surgeries endoscopy [...] [email or web address] [facility] [address] [facility] [address], [place], [address], 10/28/2024 09:14:54 Result Notes None recorded. Problems Name Problem SNOMED Code Status Onset Date Resolution Date Notes Provider Name and Address Organization Details Recorded Time Chronic sinusitis 44569233 Active 025 CRYSTAL MONACO MD [address] [address], [place], [address], [facility] 5 15:01:44 Nasal congestion 11130769 Active 025 CRYSTAL MONACO MD [address] [facility] [address] [facility], [place], [address], [facility] 5 15:01:46 Chronic rhinitis 55201331 Active 025 CRYSTAL MONACO MD [address] [facility], [place], [address], [facility] 5 15:01:47 Thyroid nodule 917532359 Active 025 CRYSTAL MONACO MD [address] [facility] [address], [place], [address], [facility] - [facility] 5 10:28:23 Recurrent acute sinusitis 239358785 Active 025 CRYSTAL MONACO MD [address] [facility] [address], [place], [address], [facility] - [facility] [place] 12:25:44 Problem Notes None recorded. Procedures Surgical History Date Name Laterality Status Provider Name and Address Organization Details Recorded Time NasalEndoscop y_DP completed CRYSTAL MONACO MD 100 [facility] [address], [place], [address], [facility] - [facility] 09/23/2024 13:56:30 excision of colon completed Melinda Foreman [place] [facility] 09/23/2024 13:56:16 Imaging Results None recorded. Procedure Notes None recorded. Medical Equipment None Reported. Allergies Allergen ID Allergen Name Allergen Category Reaction Reaction Severity Criticality Documentation Date Start Date Code Code System Note Provider Name and Address Organization Details Recorded Time 707471 Substance with sulfonami de structure and antibacte rial mechanism of action (substanc e) medicatio n Not available Not available Not available 09/23/2024 40490 8003 SNOMED Melinda Carmelitayka lai [place] [facility] 13:51:43 800731 ciproflox acin medicatio n Not available Not available Not available 09/23/2024 2551 RxNorm Melinda Motyka lai [place] [facility] 13:51:53 463140 isopropyl alcohol medicatio n Not available Not available Not available 09/23/2024 59382 1 RxNorm Melinad Motyka lai [place] [facility] 13:52:17 Medications Name Sig Start Date Stop [...] Updated DateTime 09/23/2024 165.61 cm 21.5 kg/m2 11029.01 g Melinda Foreman [place] - [facility] 09/23/2024 13:51:28 Social History None recorded. Functional Status None recorded. Mental Status None recorded. Family History Nothing Reported. Medical History Condition Response Allergies/Hayfever N Heart Problems N Anxiety N Tonsil Infections N Emphysema N Migraines N Thyroid Problems Y COPD N Depression N Developmental Delay N Glaucoma N Nasal or Sinus Problems N Anemia Y Immune System Disorder N Anesthesia Complications N Heart Attack (AR) N Other Skin Condition N Diabetes N Rhinitis N Bleeding Disorder N Food Allergy N Hearing Loss N Arthritis Y Hyperlipidemia N Cancer N Stroke N Dementia N Nasal polyps N Asthma N Sleep Disorder N High Cholesterol N GERD/Reflux N Liver Disease N Headaches N Fibromyalgia N Hypertension N Speech Delay N Kidney Disease N Gynecological HistoryNo gynecological history recorded. Obstetrics History GPAL:G 0 P 0 0 0 0 Past Encounters Encounter ID Performer Location Encounter Start Date Encounter Closed Date Diagnosis/Indication Diagnosis SNOMED-CT Code Diagnosis ICD10 Code Diagnosis IMO Codes Diagnosis Note [id number] CRYSTAL MONACO MD [facility] [address] [address] 09/23/2024 13:25:42 09/23/2024 14:11:16 Chronic sinusitis 85766380 J32.9 078142317 Nasal congestion 8428433 0 R09.81 56226 Chronic rhinitis 3638479 6 J31.0 2545 [id number] CRYSTAL MONACO MD [facility] [address] [address] 10/08/2024 09:18:41 10/08/2024 10:37:24 Thyroid nodule 814365035 E04.1 50310 Chronic rhinitis 3872582 6 J31.0 2545 Recurrent acute sinusitis 458764294 J01.91 739872713 Health Concerns Section Related Observation LastModified by Organization Detai ls LastModified Time None Recorded Concern Status LastModified by Organization Details LastModified Time None Recorded Advance Directives Directive None Recorded Payers Insurance Date Sequence Insurance Name Policy Number Policy Flower Covered Member ID Flower Member ID Guarantor Name 11/09/2024 1 [place] (MEDICARE [place]PLACEMENT PPO) [id number] Milana Mendoza [id number] Milana Mendoza 11/09/2024 2 [place] [facility] Milana Mendoza [id number] Milana Mendoza Notes Date Note Type Note [...] smokingNo other health problems CRYSTAL MONACO MD [address] [place] [address], [phone], [facility] - [facility] 09/23/2024 15:02:00 5 text/html She has frequent [...] ethmoid, and sphenoid sinuses CRYSTAL MONACO MD [address] [place] [address], [phone], [facility] - [facility] 10/08/2024 12:26:24 OBGyn Episode No OBEpisode recorded.
--- OUTSIDE RECORDS SUMMARY | 2025-01-20 16:16 | XMS_ITS | Encounter Summary ---
Author Organization [facility] Address [address] [place] [address] Phone Care Team Providers Care Senior Insight Manager International Name Role Phone Bright Cain MD Primary Care Provider [phone] Shikha Fleming MD Primary Care Provider Reason for Referral * Physical Therapy (Routine) - Closed Specialty Diagnoses / Procedures Referred By Contbartolome lopez Referred To Contact Physical Therapy Diagnoses Encounter for rehabilitation System, Provider Not In, [facility] [id number] [place] [address] [address] [place] [address] Phone: tel: Referral ID Status Reason Start Date Expiration Date Visits Re quested Visits Authorized [id number] Closed 08/08/2017 12/31/2017 12 12 Encounter Details Date Type Department Care Team (Latest Contact Info) Description 08/08/2017 Transcribe Orders [facility] [address] [place] [address] Jolly Laurent DO Encounter for rehabilitation (Primary [...] Description 03/10/2025 3:00 PM EST Office Visit [facility] [address] [facility], [address] [place] [address] Tere Mcnair MD 15 [place] [address] [email or web address] documented as of this encounter Procedures Procedure Name Priority Date/Time Associated Diagnosis Comments AMB REFERRAL TO [facility] PHYSICAL THERAPY Routine 08/22/2017 12:17 PM EDT Encounter for rehabilitation documented in this encounter Results * Ambulatory referral to [facility] Physical Therapy (08/22/2017 12:17 PM EDT) us Provider Not In System PhD AMB [facility] REFERRALS Fin al Result documented in this encounter Visit Diagnoses Diagnosis Encounter for rehabilitation- Primary documented in this encounter Care Teams Senior Insight Manager International Relationship Specialty Start Date End Date Bright Cain MD [address] [place] [address] PCP - General Internal Medicine 07/22/17 12/30/24 Shikha Fleming MD [address] [facility] [address] [facility] [address] [place] [address] PCP - General Internal Medicine 12/31/24 documented as of this encounter Additional Source Comments The information contained in this document represents components of the legal health record. It is not the complete legal health record.[facility]
--- OUTSIDE RECORDS SUMMARY | 2025-01-20 16:16 | XMS_ITS | Clinical Summary ---
Author Organization [facility] Address [address] [place] [address] Care Team Providers Care Gunner'S Mate Name Role Phone Shikha Fleming MD Primary Care Provider [phone] Surgical History Surgery Date Site/Laterality Comments OTHER [...] Care Team (Late st Contact Info) Description 01/26/2025 2:30 PM EST Appointment [facility] [address] [place] [address] Health Maintenance Due Date Last Done Comments Colorectal Cancer Screening: Colonoscopy 1955 DTaP,Tdap,and Td Vaccines (1 - Tdap) 11/03/1975 Pneumococcal Vaccine: 50+ Years (1 of 1 - PCV) 2006 Zoster Vaccines (1 of 2) 2006 Breast Cancer Screening 03/06/2020 03/06/19 19, 03/05/2018, 02/08/2017 Depression Screening 03/04/2024 COVID-19 Vaccine ( - 2024-2 6 season) 2024 Influenza Vaccine (#1) 2024 Falls [...] [place] - [place] MED[place]ARE AD[place] Care Teams Gunner'S Mate Relationship Specialty Start Date End Date Shikha Fleming MD [address] [place] [address] [address] [facility] [place] [address] PCP - General Internal Medicine 05/19/20
--- OUTSIDE RECORDS SUMMARY | 2025-01-20 16:16 | XMS_ITS | Clinical Summary ---
Author Organization [facility] Address [address] [place] [address] [place] [address] Phone Care Team Providers Care Lead Cargoman Name Role Phone Shikha Fleming MD Primary Care Provider [phone] Encounters Date Type Department Care Team Description 12/21/2024 Transcribe Orders [facility] [address] [facility], [address] [place] [address] Bright Cain MD Thyroid nodule (Primary Dx) 12/15/2024 Telephone [facility] Endocrine, Hypertension, and Diabetes [address] [address] Silvio Canales-Sowca B 12/15/2024 Telephone [facility] Endocrine, Diabetes, and Hypertension [address] [address] Unknown, Unknown, TNC/New from Last 3 Months Social History Tobacco Use Types Packs/Day Years [...] Orientation Not on file Plan of Treatment Upcoming Encounters Date Type Department Care Team ([facility] st Contact Info) Description 03/10/2025 3:00 PM EST Office Visit [facility] [address] [facility], [address] [place] [address] Tere Mcnair MD [address] [place] [address] [email or web address] Health Maintenance Due Date Last Done Comments Adult Td,Tdap Booster 1955 LIPID PANEL 1956 DEPRESSION SCREENING 1968 SMOKING Hx and SMOKELESS TOB ACCO SCREENING 1969 COLOGUARD 2001 COLONOSCOPY 2001 COLORECTAL CANCER SCREENING 2001 FIT TEST 2001 FOBT 2001 SIGMOIDOSCOPY 2001 VIRTUAL COLONOSCOPY 2001 PNEUMOCOCCAL VACCINES (50+ y ears) (1 of 1 - PCV) 2006 ZOSTER VACCINES (1 of 2) 2006 MAMMOGRAM 09/16/2016 09/16/2014 OSTEOPOROSIS SCREENING INITI AL (ONE-TIME) 2021 INFLUENZA VACCINE (#1) 2024 COVID-19 VACCINE (1 - 2024-2 6 season) 2024 RSV VACCINE (1 - 1-dose 75+ series) 11/03/2031 HEPATITIS C SCREENING Completed 04/18/2018 HEPATITIS A VACCINES Aged Out No long er eligible based on patient's age to complete this topic HIB VACCINES Aged Out No longer eligi ble based on patient's age to complete this topic IPV VACCINES Aged Out No longer eligi ble based on patient's age to complete this topic MENINGOCOCCAL VACCINES (ACWY) Aged Out No longer eligible based on patient's age to complete this topic MENINGOCOCCAL VACCINES (B) Aged Out N o longer eligible based on patient's age to complete this topic Medical Devices Not on file Insurance [facility] MEDICARE PPO BLUE REPLACEMENT MEDICARE PART A & B [facility] PARTIAL [facility] MEDICARE PPO BLUE REPLACEMENT MEDICARE PART A & B [employer] PART[place] BLUE REPLACEMENT MEDICARE PART A & B HEALTH SAFET[employer] NET PARTIAL [place] REPLAC[place] MEDICARE PART A & B HEALTH SAFETY NET PARTIAL [facility] MEDICARE PPO BLUE REPLACEMENT MEDICARE PART A & B [facility] PARTIAL [facility] MEDICARE PPO BLUE REPLACEMENT MEDICARE PART A & B [facility] NET PARTIAL Care Teams Lead Cargoman Relationship Specialty Start Date End Date Shikha Fleming MD [address] [place] [address] PCP - General Internal Medicine 12/31/24 Additional Source Comments The information contained in this document represents components of the legal health record. It is not the complete legal health record.[facility]
== END 2025-01-20 09:14 | disposition home or self-care (01) ==
LOC: HO.HMCH 08:32
PROVIDERS: PCP Internal Medicine; Visit Provider Internal Medicine
DX: I47.29 Other ventricular tachycardia (principal); E04.1 Nontoxic single thyroid nodule; M85.88 Other specified disorders of bone density and structure, other site; Z87.19 Personal history of other diseases of the digestive system; R55 Syncope and collapse; M25.512 Pain in left shoulder

== ENCOUNTER 2025-01-20 08:31 | Outpatient (REF) | payer MEDICARE, SELFPAY ==
--- NOTE | ~2025-01-20 | XR_ITS ---
EXAMINATION: XR SHOULDER, LEFT CLINICAL INFORMATION: M25.512 - Pain in left shoulder COMPARISON: Correlated to chest x-ray dated March 25, 2024. TECHNIQUE: AP external rotation, Grashey, scapular Y, and axillary views of the left shoulder. FINDINGS: No acute cortical disruption or malalignment. No lytic or blastic lesions. No soft tissue calcifications. No metallic or radiopaque foreign body. No subcutaneous emphysema. Incidentally mild scoliosis, thoracic spine.. XR/XR shoulder LT min 2V IMPRESSION: No acute fracture or dislocation or gross degenerative changes. Electronically signed by: Mahin Lewis MD 01/20/2025 09:57 AM TATIANA
--- OUTSIDE RECORDS SUMMARY | 2025-01-20 17:17 | XMS_ITS ---
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 She was seen on December 30, 2024, at which time Excision (Repair: Intermediate) was performed. The pathology shows: Scar on the right superior upper back. We recommended the following: Reassure : margins clear.The patient presents for suture removal.Today the patient reports: Quality: no redness, no pain, not malodorous, no swelling, and no drainage. Allergies, Adverse Reactions, Alerts Substance RxNorm Reaction(s) Severity Status Start Da te Sulfa (Sulfonamide Antibiotics) unspecif ied active Alcohol wipes N/A N/A N/A N/A N/A Medications Medication Generic Name RxNorm Strength Strength Unit Route Dose Dose Form Frequency Date Started Date Ended Status Indication Sig metoprolol succinate metoprol ol succinat e 25 mg Oral 1 Table t, Exten ded Relea se 24 hr qd active valacyclovi r 622185 1 gram Oral 1 table t QD active Problems Problem Code Type Status Date of Diagnosis Da te of Resolution Melanocytic nevus of trunk (disorder) 732045440(SNO MED) Diagnosis active 10/08/2024 History of clinical finding in subject (situation) 346232780(SNO MED) Problem active Dysplastic nevus of skin (disorder) 912922340(SNO MED) Problem active Melanocytic nevus of trunk (disorder) 219135327(SNO MED) Diagnosis active 12/30/2024 Surgical follow-up (finding) 002469543(SNO MED) Diagnosis active 01/18/2025 Results No data Encounters Service provided at [facility], [address] [place] [address], [address], [place], [place] [id number]. Office phonenumber is [phone]. Office fax number is [phone]. Encounter Diagnosis Location Date / Time Type Disc harge Status Post-Operative Wound Check (Z48.817) [facility] 01/18/2025 13:45:00 [place] [address] Reason For Referral No data Procedures Procedure Date Documentation of current medications (pr ocedure) 01/18/2025 12:00 am UTC Removal of suture (procedure) 01/18/2025 12:00 am UTC Documentation of current medications (pr ocedure) 01/11/2025 12:00 am UTC Excision (procedure) 12/30/2024 12:00 am UTC Documentation of current medications (pr ocedure) 10/08/2024 12:00 am UTC Documentation of past medical history (p rocedure) Documentation of past medical history (p rocedure) Documentation of past medical history (p rocedure) Documentation of past medica l history (procedure) Sebaceous cysts removed emoved large intestine 1985 Review Of Systems No Data Assessment 1.Post-Operative Wound CheckSuture Removal (Global Period) Plan of Care No data Instructions No Data Social History Code Activity Start Date End Date 610507631 (SNOMED) Never smoker Sex Female Sexual orientation Don't Know Gender identity Unspecified Vital Signs No data Insurances Coverage Status Coverage Type Relationship to Subscriber Member Identifier Subscriber Identifier Group Identifier Payer Identifier Inactive 1 Self [id number] Active Self [id number] Inactive 2 Self [id number]
== END 2025-01-20 08:32 | disposition home or self-care (01) ==
LOC: HO.XRAY 08:31
PROVIDERS: PCP Internal Medicine; Visit Provider Internal Medicine
DX: M25.512 Pain in left shoulder (principal); I47.29 Other ventricular tachycardia; E04.1 Nontoxic single thyroid nodule; M85.88 Other specified disorders of bone density and structure, other site; Z87.19 Personal history of other diseases of the digestive system; R55 Syncope and collapse; J30.9 Allergic rhinitis, unspecified; E04.2 Nontoxic multinodular goiter
CPT/HCPCS: 73030; 99212

== ENCOUNTER → 2025-01-20 09:28 | Outpatient (BNV) | payer MEDICARE, SELFPAY | PROVIDERS: PCP Internal Medicine; Visit Provider Radiology Diagnostic Radiology | DX: M25.512 Pain in left shoulder (principal) | CPT/HCPCS: 73030 ==

== ENCOUNTER 2025-02-16 11:51 | Outpatient (AMB) | payer MEDICARE, SELFPAY ==
[2025-02-16 11:54] VITALS: BP 127/68; PULSE 86; RESP 18; TEMP 36.6; O2SAT 98; BMI 21.0
--- NOTE | 2025-02-16 11:54 | MHC.OFFWIV ---
Intake Vital Signs 02/16/25 11:54 Height 5 ft 6.5 in Weight 132 lb BMI 21.0 BP 127/68 Blood Pressure Location Rt brachial Position Sitting Respiration 18 Pulse 86 Pulse Source Pulse Oximeter Temp 98 F Temp Source Oral Pulse Oximetry (%) 98 Oxygen Delivery Method Room Air Intake Visit Reasons: EP - ?URI Intake Note: EP complains of sinus pressure, nasal congestions, dry cough first and then productive cough (dark-green, in the last three days) started from February. Patient Tobacco Use Status: Never used Tobacco Allergies Echinacea Allergy (Intermediate, Verified 02/16/25 12:04) rash isopropyl alcohol Allergy (Intermediate, Verified 02/16/25 12:04) rash Sulfa (Sulfonamide Antibiotics) Allergy (Mild, Verified 02/16/25 12:04) Rash ciprofloxacin (From Cipro) Adverse Reaction (Severe, Verified 02/16/25 12:04) leg cramps metronidazole Adverse Reaction (Mild, Verified 02/16/25 12:04) Abdominal Pain fragrance floral Allergy (Intermediate, Uncoded 02/16/25 12:04) congestion and BEDOYA Do you need a note to return to daycare/school/sports/work: No HPI HPI Comments History of Present Illness Details History of Present Illness The patient is a 69 year old female presenting with symptoms of rhinorrhea, congestion, cough, and sore throat. - The patient reports symptoms beginning around February 01 - Symptoms include sinus congestion, dark green nasal discharge, a persistent dry cough, and sore throat - She also reports abdominal muscle pain from coughing throughout the day. - She denies any fever. - The patient has been self-treating with Ale (recently switched to Claritin), a Neti Pot, Nasacort, and Mucinex without resolution of her symptoms. - She has not taken any antibiotics for this illness. - She has a history of recurrent sinus infections. - She denies any nausea, vomiting Review of Systems - General: Denies fever or chills - HEENT: Reports sinus congestion, dark green nasal discharge, sore throat. Denies ear pain. - Respiratory: Reports a persistent dry cough. Denies shortness of breath or trouble breathing. - Gastrointestinal: Reports abdominal pain. Denies nausea, vomiting, or hematochezia. Physical Exam General Appearance: Normal appearance, well developed. No acute distress ENT: External ears and ear canals normal. TM without erythema or bulging. Thick clear nasal discharge present with postnasal drip observed. Oropharynx clear without erythema or exudate. Head: Normocephalic, atraumatic Pulmonary: No respiratory distress. Clear to auscultation bilaterally. Speaking in full sentences Cardiac: Regular rate and rhythm. No murmurs. Musculoskeletal: Moving all extremities spontaneously and against gravity Mental Status: Alert and Oriented x 3 Psychiatric: Normal mood. Normal affect. [facility], [facility] Medical History Multinodular goiter Annual physical exam History of ulcerative colitis Kina infection COVID-19 virus infection Lateral epicondylitis of elbow Onychomycosis Shoulder fracture, right Surgical History H/O eye surgery Ulcerative colitis Family History Father CAD (coronary artery disease), Onset Age: 64 Brother Cancer of eye, Onset Age: 67 Skin cancer, Onset Age: 40 Sister Leukemia, Onset Age: 55 MDS (myelodysplastic syndrome), Onset Age: 51 Skin cancer, Onset Age: 45 Mother Lymphoma, Onset Age: 84 CAD (coronary artery disease), Onset Age: 66 Daughter Substance abuse Depression Social History Housing: House Alcohol intake: current Comment: 2 x a month 1-2 drink Patient Tobacco Use Status: Never used Tobacco Tobacco use type: Cigarette e-Cigarette/Vaping Use: Never Used Second Hand Smoke Exposure: No Current occupational status: unemployed Cognitive needs: No Hearing needs: No Vision needs: Yes Physical Exam Vital Signs: Last Vital Signs Temp 98 F 02/16/25 11:54 Pulse 86 02/16/25 11:54 Resp 18 02/16/25 11:54 BP 127/68 02/16/25 11:54 Pulse Ox 98 02/16/25 11:54 Oxygen Delivery Method Room Air 02/16/25 11:54 BMI result Body Mass Index 21.0 Assessment & Plan Assessment & Plan (1) Bacterial sinusitis: Code(s): J32.9 - Chronic sinusitis, unspecified; B96.89 - Other specified bacterial agents as the cause of diseases classified elsewhere Plan Assessment and Plan 1. Acute bacterial sinusitis - The patient's symptoms, including green nasal discharge, congestion and sinus pressure, have persisted for over two weeks - Her lungs are clear and she is afebrile with normal oxygen saturation, making pneumonia less likely. - Prescribe Augmentin for 5 days, to be taken every 12 hours with food for sinus infection - Advise the patient to continue current supportive treatments with nasal rinses, Mucinex, nasal spray, and Claritin. - Instruct the patient to return if she develops fevers, worsening cough, increased productivity of cough, or shortness of breath Patient was informed and verbally consented to the use of an ambient scribe for clinic note documentation during the visit. Medications: New amoxicillin-pot clavulanate 875-125 mg 1 tab PO Q12H 10 tabs 0RF Coding Level of Care Code Est Pt Level 3 (80274) Diagnoses Bacterial sinusitis J32.9; B96.89
--- OUTSIDE RECORDS SUMMARY | 2025-02-16 15:42 | XMS_ITS | Encounter Summary ---
Author Organization [facility] Address [address] [place] [address] Phone Care Team Providers Care Technology Training Associate Name Role Phone Bright Cain MD Primary Care Provider [phone] Shikha Fleming MD Primary Care Provider [phone] Reason for Referral * Physical Therapy (Routine) - Closed Specialty Diagnoses / Procedures Referred By Contbartolome lopez Referred To Contact Physical Therapy Diagnoses Encounter for rehabilitation System, Provider Not In, [facility] [id number] [place] [address] [address] [place] [address] Phone: tel: Referral ID Status Reason Start Date Expiration Date Visits Re quested Visits Authorized [id number] Closed 08/08/2017 12/31/2017 12 12 Encounter Details Date Type Department Care Team (Latest Contact Info) Description 08/08/2017 Transcribe Orders [facility] [address] [place] [address] Jolly Laurent DO Encounter for rehabilitation (Primary [...] Description 03/10/2025 3:00 PM EST Office Visit [facility] [address] [facility], [address] [place] [address] Tere Mcnair MD [address] [place] [address] [email or web address] documented as of this encounter Procedures Procedure Name Priority Date/Time Associated Diagnosis Comments AMB REFERRAL TO [facility] PHYSICAL THERAPY Routine 08/22/2017 12:17 PM EDT Encounter for rehabilitation documented in this encounter Results * Ambulatory referral to [facility] Physical Therapy (08/22/2017 12:17 PM EDT) us Provider Not In System PhD AMB [facility] REFERRALS Fin al Result documented in this encounter Visit Diagnoses Diagnosis Encounter for rehabilitation- Primary documented in this encounter Care Teams Technology Training Associate Relationship Specialty Start Date End Date Bright Cain MD [address] [place] [address] PCP - General Internal Medicine 07/22/17 12/30/24 Shikha Fleming MD [address] [place] [address] PCP - General Internal Medicine 12/31/24 documented as of this encounter Additional Source Comments The information contained in this document represents components of the legal health record. It is not the complete legal health record.[facility]
--- OUTSIDE RECORDS SUMMARY | 2025-02-16 15:42 | XMS_ITS | Clinical Summary ---
Author Organization [facility] Address [address] [place] [address] Phone Care Team Providers Care Data Typist Name Role Phone Shikha Fleming MD Primary Care Provider Encounters Date Type Department Care Team Description 01/26/2025 2:29 PM EST - 01/26/2025 11:59 PM EST Hospital Encounter [facility] Xray [address] [place] [address] Syncope and collapse Discharge Disposition: Home or Self Care from Last 3 Months Surgical History Surgery Date Site/Laterality Comments OTHER [...] Breast Cancer Screening 03/06/2020 03/06/19 19, 03/05/2018, 02/08/2017, Additional history exists Depression Screening 03/04/2024 COVID-19 Vaccine ( - season) 2024 Influenza Vaccine (#1) 2024 Falls Risk Assessment 11/06/2024 Medicare Annual Wellness Visit 11/06/2024 Osteoporosis Screening (Bone Density Screening) 11/06/2024 Social Influencers of Health Screening 11/06/2024 RSV Immunization Adult Patients (1 - 1-dose 75+ series) 11/03/2031 Hepatitis C Screening Completed 04/18/2018 HIB Vaccines Aged Out No longer eligi [...] 20 months Aged Out No longer eligible based on patient's age to complete this topic Varicella Vaccines Aged Out No longer eligible based on patient's age to complete this topic Procedures Procedure Name Priority Date/Time Associated Diagnosis Comments TILT TABLE Routine 01/26/2025 2:41 PM EST Syncope and collapse DX MAMMO INCL CAD UNI Routine 03/06/2018 1:33 PM EST Other abnormal and inconclusive findings on diagnostic imaging of breast from Last 3 Months or Most Recently Relevant to Health Maintenance Results * Tilt table (01/26/2025 2:41 PM EST) Anatomical Region Laterality Modality Radiographic Atmmy ging Narrative 01/26/2025 3:29 PM EST Tilt Table The patient was brought to lab in fasting state. Patient lied supine for 5 minutes for equilibrium. Baseline ECG showed normal sinus rhythm. Baseline supine minimum BP: 132/67 mmHg Baseline supine minimum HR: 77 bpm Patient tilted to 70 degrees. Tilt maintained for 20 minutes. Minimum BP during tilt: 147/79 mmHg Maximum BP during tilt: 128/64 mmHg Minimum heart rate during tilt: 80 bpm Maximum heart rate during tilt: 85 bpm Rhythm during tilt: normal sinus rhythm There was a clear orthostatic response not noted. Patient experienced a physiologic HR increase with tilt. No symptoms reported. Conclusion: Negative tilt test. us Geo Graham MD [facility] C[facility]IAC SERVICES PROCEDURES F inal Result * DX MAMMO INCL CAD UNI (03/06/2018 [...] Most Recently Relevant to Health Maintenance Insurance [employer] [employer] MEDIC[place] ADVANTAGE Care Teams Data Typist Relationship Specialty Start Date End Date Shikha Fleming MD [address] [place] [address] [address] [facility] [place] [address] PCP - General Internal Medicine 05/19/20
--- OUTSIDE RECORDS SUMMARY | 2025-02-16 15:42 | XMS_ITS | Clinical Summary ---
Author Organization [facility] Address [address] [place] [address] [place] [address] Phone Care Team Providers Care Car Icer Name Role Phone Shikha Fleming MD Primary Care Provider [phone] Encounters Date Type Department Care Team Description 12/21/2024 Transcribe Orders [facility] [address] [facility], [address] [place] [address] Bright Cain MD Thyroid nodule (Primary Dx) 12/15/2024 Telephone [facility] Endocrine, Hypertension, and Diabetes [address] [address] Silvio Canales-Sownc B 12/15/2024 Telephone [facility] Endocrine, Diabetes, and Hypertension [address] [address] Unknown, Unknown, TNC/New from Last 3 Months [...] Description 03/10/2025 3:00 PM EST Office Visit [facility] [address] [facility], [address] [place] [address] Tere Mcnair MD [address] [place] [address] [email or web address] Health Maintenance Due Date Last Done Comments [...] topic Medical Devices Not on file Insurance [place] P[place] BLUE REPLACEMENT MEDICARE PART A & B [facility] PARTIAL [place] BL[place] RE[place] MEDICARE PART A & B [employer] SAFETY NET PARTIAL [place] BL[place] MEDICARE PART A & B [employer] SAFETY NET PARTIAL [place] RE[place] MEDICARE PART A & B [facility] PARTIAL [facility] MEDICARE PPO BLUE REPLACEMENT MEDICARE PART A & B [facility] NET PARTIAL [facility] MEDICARE PPO BLUE REPLACEMENT MEDICARE PART A & B [facility] NET PARTIAL Care Teams Car Icer Relationship Specialty Start Date End Date Shikha Fleming MD [address] [place] [address] PCP - General Internal Medicine 12/31/24 Additional Source Comments The information contained in this document represents components of the legal health record. It is not the complete legal health record.[facility]
--- OUTSIDE RECORDS SUMMARY | 2025-02-16 15:42 | XMS_ITS | Encounter Summary ---
Author Organization [facility] Address [address] [place] [address] [place] [address] Phone Care Team Providers Care Pullboat Engineer Name Role Phone Bright Cain MD Primary Care Provider [phone] Shikha Fleming MD Primary Care Provider [phone] Encounter Details Date Type Department Care Team (Late st Contact Info) Description 08/08/2017 Transcribe Orders [facility] [address] [place] [address] Jolly Laurent DO Social History Tobacco Use [...] Description 03/10/2025 3:00 PM EST Office Visit [facility] [address] [facility], [address] [place] [address] Tere Mcnair MD [address] [place] [phone] [email or web address] documented as of this encounter Visit Diagnoses Not on filedocumented in this encounter Care Teams Pullboat Engineer Relationship Specialty Start Date End Date Bright Cain MD [facility] [place] [address] PCP - General Internal Medicine 07/22/17 12/30/24 Shikha Fleming MD [address] [place] [address] [place] [phone] PCP - General Internal Medicine 12/31/24 documented as of this encounter Additional Source Comments The information contained in this document represents components of the legal health record. It is not the complete legal health record.[facility]
== END 2025-02-16 12:36 | disposition home or self-care (01) ==
PROVIDERS: PCP Internal Medicine; Visit Provider Family Medicine
DX: J32.9 Chronic sinusitis, unspecified (principal); B96.89 Other specified bacterial agents as the cause of diseases classified elsewhere

== ENCOUNTER → 2025-02-16 11:51 | Outpatient (BNVA) | payer MEDICARE, SELFPAY | PROVIDERS: PCP Internal Medicine; Visit Provider Family Medicine | DX: B96.89 Other specified bacterial agents as the cause of diseases classified elsewhere (principal); J32.9 Chronic sinusitis, unspecified | CPT/HCPCS: 99212 ==

== ENCOUNTER 2025-03-01 11:11 | Outpatient (AMB) | payer MEDICARE, SELFPAY ==
[2025-03-01 11:17] VITALS: BP 112/72; PULSE 76; O2SAT 98; BMI 21.1
--- NOTE | 2025-03-01 11:17 | A.OFFPC_ITS ---
Vital Signs 03/01/25 11:17 Height 5 ft 6.5 in Weight 133 lb BMI 21.1 BP 112/72 Blood Pressure Location Lt brachial Position Sitting Pulse 76 Pulse Source Pulse Oximeter Pulse Oximetry (%) 98 Oxygen Delivery Method Room Air Intake Visit Reasons: Sinus Allergies Echinacea Allergy (Intermediate, Verified 03/01/25 11:17) rash isopropyl alcohol Allergy (Intermediate, Verified 03/01/25 11:17) rash Sulfa (Sulfonamide Antibiotics) Allergy (Mild, Verified 03/01/25 11:17) Rash ciprofloxacin (From Cipro) Adverse Reaction (Severe, Verified 03/01/25 11:17) leg cramps metronidazole Adverse Reaction (Mild, Verified 03/01/25 11:17) Abdominal Pain fragrance floral Allergy (Intermediate, Uncoded 03/01/25 11:17) congestion and BEDOYA Medication List - Last Reconciled 03/01/25 by Shikha Fleming MD diphenoxylate-atropine 2.5-0.025 mg (Lomotil) 1 tab PO BEDTIME PRN doxycycline hyclate 100 mg PO BID fexofenadine (Ale Allergy) 180 mg PO DAILY metoprolol succinate ER (Toprol XL) 25 mg PO DAILY multivitamin 1 tab PO DAILY [Standard Process 1 cap PO 10XD] Tobacco use date assessed: 05/27/24 Fall risk assessment: No Falls in past year Last assessed Fall Risk: 03/01/25 Dental Screening Dental Screen Date: 05/27/24 HPI HPI Comments History of Present Illness Details History of Present Illness The patient is a 69 year old female presenting with recurrent sinus symptoms. She reports ongoing issues with nasal discharge and an upper chest cough, without wheezing or chest tightness. The patient also had a brief, transient chest pain episode yesterday which has since resolved. She has a history of chronic sinusitis and was evaluated by an ENT specialist, Dr. Castillo, in September, which included sinus x-rays and nasal endoscopy. The ENT determined she was a borderline candidate for sinus surgery. The patient had scheduled the surgery for February 03 but canceled it after a five-month period of improvement, despite a minor flare-up a week prior to the scheduled date. She then experienced a severe flare-up on February 01. Her current self-management for allergies and sinus symptoms includes daily Ale, a Medipot, and Nasacort nasal spray. She has a known allergy to ciprofloxacin. She recalls taking tetracycline for acne as a teenager without issue. Health Maintenance - The patient is scheduled for a follow- up at [facility] next week for a potential biopsy. Social History - Patient's daughter has a dog, which ma y be a trigger for her allergies. - Patient's home has carpets, which may also contribute to her allergies. - Recent exposure to her grandson who wa s diagnosed with RSV. Results - Prior workup by ENT, including x-rays and nasal endoscopy, were discussed but results were not available for review. [facility] Medical History Multinodular goiter Annual physical exam History of ulcerative colitis Kina infection COVID-19 virus infection Lateral epicondylitis of elbow Onychomycosis Shoulder fracture, right Surgical History H/O eye surgery Ulcerative colitis Family History Father CAD (coronary artery disease), Onset Age: 64 Brother Cancer of eye, Onset Age: 67 Skin cancer, Onset Age: 40 Sister Leukemia, Onset Age: 55 MDS (myelodysplastic syndrome), Onset Age: 51 Skin cancer, Onset Age: 45 Mother Lymphoma, Onset Age: 84 CAD (coronary artery disease), Onset Age: 66 Daughter Substance abuse Depression Social History Housing: House Alcohol intake: current Comment: 2 x a month 1-2 drink Patient Tobacco Use Status: Never used Tobacco Tobacco use type: Cigarette e-Cigarette/Vaping Use: Never Used Second Hand Smoke Exposure: No Current occupational status: unemployed Cognitive needs: No Hearing needs: No Vision needs: Yes Questionnaire Thrive Questionnaire Date Thrive assessed: 07/20/24 I am a: Patient What is your living situation today?: I have a steady place to live Within the past 12 months, did the food you bought not last and you didn't have the money to get more?: I choose not to answer this question Within the past 12 months, did you worry whether your food would run out before you got money to buy more?: I choose not to answer this question Do you have trouble paying for medicines?: I choose not to answer this question Do you have trouble getting transportation to medical appointments?: I choose not to answer this question Do you have trouble paying your heating and electricity bill?: I choose not to answer this question Do you have trouble taking care of your child, family member or friend?: I choos e not to answer this question Do you have trouble with day-to-day activities such as bathing, preparing meals, shopping, managing finances, etc.?: I choose not to answer this question Are you currently unemployed and looking for a job?: I choose not to answer this question Are you interested in more education?: I choose not to answer this question Currently or been in a relationship where the following occur: I choose not to answer THRIVE Score: 0 IAN-7 AMB Questionnaire IAN-7 Date IAN - 7 assessed: 05/27/24 Source: Developed by Drs. Nuno Licona, Yudy Carson, Michael Ching and colleagues, with an educational katharine from [employer]. Review of Systems Narrative Review of Systems - Respiratory: Reports a cough located in her upper chest and nasal discharge which is sometimes green. Denies wheezing or chest tightness. - ENT: Denies sore throat. - Cardiovascular: Reports a brief, resolved episode of chest pain yesterday. - Constitutional: Denies fever. Physical exam (Primary Care) Vital Signs: Last Vital Signs Pulse 76 03/01/25 11:17 BP 112/72 03/01/25 11:17 Pulse Ox 98 03/01/25 11:17 Oxygen Delivery Method Room Air 03/01/25 11:17 BMI result Body Mass Index 21.1 Tobacco/Smoking Status: Tobacco use Status Tobacco use date assessed 05/27/24 03/01/25 11:20 Patient Tobacco Use Status Never used Tobacco 03/01/25 11:20 Tobacco use type Cigarette 03/01/25 11:20 e-Cigarette/Vaping Use Never Used 03/01/25 11:20 Thrive Assessment: Date of Thrive Assessment Date Thrive assessed 07/20/24 03/01/25 11:20 Currently or been in a relationship where the following occur: I choose not to answer Narrative Physical Exam - HEENT: Oropharynx is pink and non-erythematous. Sinuses are non-tender to palpation. Scarring is noted in the ears, with no pain on pinna traction. - Respiratory: Lungs are clear to auscultation bilaterally. Const General: alert; No acute distress Eyes Conjunctivae: conjunctivae normal Resp Auscultation: clear to auscultation bilaterally Cardio Rate: regular rate Rhythm: regular rhythm GI Inspection: Yes normal to inspection Extrem General: Yes normal to inspection and No edema Coding Level of Care Code Est Pt Level 3 (55082) Diagnoses Sinus congestion R09.81 Assessment & Plan Assessment & Plan (1) Sinus congestion: Code(s): R09.81 - Nasal congestion Category: Medical Plan Plan Patient was informed and verbally consented to the use of an ambient scribe for clinic note documentation during this visit. 1. Chronic Sinusitis The patient presents with recurrent symptoms of nasal discharge and cough. Physical exam today is not suggestive of an acute bacterial infection, as her throat is non-erythematous and she is afebrile. Symptoms are likely secondary to underlying allergic rhinitis and potential structural issues. A 10-day course of doxycycline was prescribed to have on hand, with instructions to only start the medication if symptoms significantly worsen, as there are no clear indications for antibiotics at this time. Will request records from her ENT specialist, Dr. Castillo, to review prior findings and the rationale for the surgical recommendation. Provided education on the proper technique for using her Nasacort spray to maximize local efficacy. 2. Allergic Rhinitis The patient's chronic sinus issues are likely driven by underlying allergies, which cause mucosal swelling and blockage. Potential indoor triggers discussed include a pet dog and carpets. The patient will continue her current regimen of daily Ale and Nasacort nasal spray to manage symptoms. It was explained that even if she undergoes surgery, continued use of allergy medication is crucial for managing the underlying inflammation. 3. Allergy To Ciprofloxacin The patient reports an allergy to ciprofloxacin. This allergy has been noted, and ciprofloxacin and related antibiotics will be avoided. Doxycycline was chosen as a safe alternative for her standby prescription. Discussion Notes I discussed with the patient that her current symptoms do not show clear signs of a bacterial infection, and that the green color of nasal discharge is not a definitive indicator for antibiotics. I explained that her underlying allergies are the likely cause of her chronic sinus issues by causing swelling and blockage. We reviewed the proposed sinus surgery and I clarified that while it can help improve drainage, it does not cure the allergy, and she would still require allergy medications. I provided a standby prescription for a 10-day course of doxycycline, instructing her to only start it if her symptoms significantly worsen. I also provided education on the proper administration of her Nasacort spray, advising against deep inhalation to keep the medication in the nasal cavity. I informed her that my office will request her records from Dr. Castillo at the ENT office, and we will discuss the findings upon their arrival to make a more informed decision regarding further treatment. Patient Instructions - Continue taking your daily allergy medications, including Ale and Nasacort. - When using the Nasacort nasal spray, spray it into your nose but do not sniff or inhale it deeply. You want the medicine to stay in your nose. If it drips, just wipe it away. - I have sent a prescription for the antibiotic Doxycycline to [facility] on [address]. Do not start taking it now. - You should only start the antibiotic if your symptoms get much worse, such as developing a high fever or severe facial pain. - My office will request your medical records from your ear, nose, and throat (ENT) specialist. We will discuss them with you once we receive them. Medications: New doxycycline hyclate 100 mg PO BID 20 caps 0RF R09.81 - Nasal congestion
--- OUTSIDE RECORDS SUMMARY | 2025-03-01 13:10 | XMS_ITS | Clinical Summary ---
Author Organization [facility] Address [address] [place] [address] Care Team Providers Care Modeling Manager Name Role Phone PoShikha Primary Care Provider [phone] Po, Shikha Unavailable Allergies Active Allergy Reactions Criticality Noted Date Comments Alcohol Swabs Unknown 01/05/2019 Ciprofloxacin Other (See Comments) 01/05/2019 Severe cramping in legs Echinacea Rash Low 01/28/2019 Sulfa (Sulfonamide Antibiotics) Unknown 01/05/2019 Medications cetirizine (ZyrTEC) 10 MG tablet Take 1 tablet (10 mg total) by mouth daily. Active fluconazole (DIFLUCAN) 100 MG tablet Take 1 tablet (100 mg total) by mouth daily. 7 tablet 1 Active nystatin 100,000 unit/mL suspension Take 5 mL (500,000 Units total) by mouth 4 times a day for 7 days. 140 mL 4 Active loperamide (IMODIUM A-D) 2 mg tabletIndications :Ulcerative pancolitis without complication (CMS-HCC) Take 2 tablets (4 mg total) by mouth 4 times a day as needed for diarrhea. 240 tablet 11 4 Active valACYclovir (VALTREX) 1000 MG tablet 5 Active fexofenadine HCl (JAKI ORAL) Take by mouth. Active Active Problems Problem Noted Date Diagnosed Date Pouchitis 12/15/2020 Oral thrush 12/15/2020 Ulcerative colitis 01/11/2019 Family History Medical History Relation Comments Colon cancer Niece Relation Status Comments Niece Social History Tobacco Use Types Packs/Day Years Used Date Smoking Tobacco: Never Smokeless Tobacco: Never Tobacco Cessation:Counseling Given: Not Answered Alcohol Use Standard Drinks/Week Comments Not Currently 0 (1 standard drink = 0.6 oz pur e alcohol) Comments Unknown Sex and Gender Information Value Date Recorded Sex Assigned at Not on file Legal Sex Female 7:28 PM EST Gender Identity Not on file Sexual Orientation Not on file Last Filed Vital Signs Vital Sign Reading Time Taken Comments Blood Pressure 116/68 12/15/2020 10:43 AM EDT Pulse 89 12/15/2020 10:43 AM EDT Temperature 36.6 C (97.9 F) 01/05/2019 3:49 PM EST Respiratory Rate - - Oxygen Saturation 100% 12/15/2020 10:43 AM EDT Inhaled Oxygen Concentration - - Weight 58.1 kg (128 lb) 01/05/2019 3:49 PM EST Height 165.7 cm (5' 5.25 ) 01/05/2019 3:49 PM ES T Body Mass Index 21.14 01/05/2019 3:49 PM EST Plan of Treatment Health Maintenance Due Date Last Done Comments Blood Pressure 1956 Lipid Panel 1956 Depression Screening 1968 Hepatitis C Screening 1974 DTaP,Tdap,and Td Vaccines (1 - Tdap) 11/03/1975 CT Colonography 2001 Colonoscopy 2001 Colorectal Cancer Screening 2001 FIT 2001 FOBT 2001 Multitarget Stool DNA (Cologuard) 2001 Sigmoidoscopy 2001 Pneumococcal Vaccine: 50+ Years (1 of 1 - PCV) 2006 Zoster Vaccine (1 of 2) 2006 Breast Cancer Screening 09/16/2016 09/17/19 15, 07/31/2013, 10/01/2011 Osteoporosis Screening 2021 COVID-19 Vaccine ( - 2024-2 6 season) 2024 Influenza Vaccine (#1) 2024 Cervical Cancer Screening Discontinued Pap Smear Discontinued 12/29/2013 HPV/Cotest Discontinued Meningococcal B Vaccines Aged Out No longer eligible based on patient's age to complete this topic Meningococcal Vaccines Aged Out No lo nger eligible based on patient's age to complete this topic Insurance [address] [place], [place] [address]HEALTH BLUE CROSS BLUE SHIELD MEDICARE ADVANTAGE [place] [address] Care Teams Modeling Manager Relationship Specialty Start Date End Date Shikha Fleming [address] [address] PCP - General 12/14/20 Shikha Fleming [address] [address] PCP - Insurance Assigned PCP 04/09/23
--- OUTSIDE RECORDS SUMMARY | 2025-03-01 13:10 | XMS_ITS | Clinical Summary ---
Author Organization [facility] Address [address] [place] [address] Phone Care Team Providers Care Slitter And Rewinder Machine Operator Name Role Phone Shikha Fleming MD Primary Care Provider [phone] Encounters Date Type Department Care Team Description 01/26/2025 2:29 PM EST - 01/26/2025 11:59 PM EST Hospital Encounter [facility] Xray [address] [place] [address] Syncope and collapse Discharge Disposition: [...] PM EST) Anatomical Region Laterality Modality Radiographic Tammy ging Narrative 01/26/2025 3:29 PM EST Tilt [...] CROSS - [place] MED[place]ARE [place] Care Teams Slitter And Rewinder Machine Operator Relationship Specialty Start Date End Date Shikha Fleming MD [address] [place] [address] [address] [facility] [place] [address] PCP - General Internal Medicine 05/19/20
--- OUTSIDE RECORDS SUMMARY | 2025-03-01 13:10 | XMS_ITS | Encounter Summary ---
Author Organization [facility] Address [address] [place] [address] [place] [address] Phone Care Team Providers Care Truck Repair Supervisor Name Role Phone Bright Cain MD Primary Care Provider [phone] Shikha Fleming MD Primary Care Provider [phone] Encounter Details Date Type Department Care Team (Late st Contact Info) Description 08/08/2017 Transcribe Orders [facility] [address] [place] [id number] Jolly Laurent DO Social History Tobacco Use [...] Description 03/10/2025 3:00 PM EST Office Visit [facility] [address] [facility], [address] [place] [address] Tere Mcnair MD [address] [place] [phone] [email or web address] documented as of this encounter Visit Diagnoses Not on filedocumented in this encounter Care Teams Truck Repair Supervisor Relationship Specialty Start Date End Date Bright Cain MD [facility] [place] [address] PCP - General Internal Medicine 07/22/17 12/30/24 Shikha Fleming MD [address] [place] [address] [place] [phone] PCP - General Internal Medicine 12/31/24 documented as of this encounter Additional Source Comments The information contained in this document represents components of the legal health record. It is not the complete legal health record.[facility]
--- OUTSIDE RECORDS SUMMARY | 2025-03-01 13:10 | XMS_ITS | Encounter Summary ---
Author Organization [facility] Address [address] [place] [address] Phone Care Team Providers Care Pie Bottomer Name Role Phone Bright Cain MD Primary Care Provider [phone] Shikha Fleming MD Primary Care Provider [phone] Reason for Referral * Physical Therapy (Routine) - Closed Specialty Diagnoses / Procedures Referred By Contbartolome lopez Referred To Contact Physical Therapy Diagnoses Encounter for rehabilitation System, Provider Not In, [facility] [id number] [place] [address] [address] [place] [address] Phone: tel: Referral ID Status Reason Start Date Expiration Date Visits Re quested Visits Authorized [id number] Closed 08/08/2017 12/31/2017 12 12 Encounter Details Date Type Department Care Team (Latest Contact Info) Description 08/08/2017 Transcribe Orders [facility] [address] [place] [address] Jolly Laurent DO Encounter for rehabilitation (Primary [...] Description 03/10/2025 3:00 PM EST Office Visit [facility] [address] [facility], [address] [place] [address] Tere Mcnair MD [address] [place] [address] [email or web address] documented as of this encounter Procedures Procedure Name Priority Date/Time Associated Diagnosis Comments AMB REFERRAL TO [facility] Routine 08/22/2017 12:17 PM EDT Encounter for rehabilitation documented in this encounter Results * Ambulatory referral to [facility] Physical Therapy (08/22/2017 12:17 PM EDT) us Provider Not In System PhD AMB [facility] REFERRALS Fin al Result documented in this encounter Visit Diagnoses Diagnosis Encounter for rehabilitation- Primary documented in this encounter Care Teams Pie Bottomer Relationship Specialty Start Date End Date Bright Cain MD [address] [place] [address] PCP - General Internal Medicine 07/22/17 12/30/24 Shikha Fleming MD [address] [facility] [address] [place] [address] PCP - General Internal Medicine 12/31/24 documented as of this encounter Additional Source Comments The information contained in this document represents components of the legal health record. It is not the complete legal health record.[facility]
--- OUTSIDE RECORDS SUMMARY | 2025-03-01 13:10 | XMS_ITS | Clinical Summary ---
Author Organization [facility] Address [address] [place] [address] Drive [address] [place] [address] Phone Care Team Providers Care Construction Person Name Role Phone Shikha Fleming MD Primary Care Provider [phone] Encounters Date Type Department Care Team Description 12/21/2024 Transcribe Orders [facility] [address] [facility], [address] [place] [address] Bright Cain MD Thyroid nodule (Primary Dx) 12/15/2024 Telephone [facility] [address] [address] Silvio Canales-Kannanga Albina 12/15/2024 Telephone [facility] [address] [address] Unknown, Unknown, TNC/New from Last 3 Months [...] Description 03/10/2025 3:00 PM EST Office Visit [facility] [address] [facility], [address] [place] [address] Tere Mcnair MD [address] [place] [address] [email or web address] Health Maintenance Due Date Last Done Comments [...] BLUE REPLACEMENT MEDICARE PART A & B [facility] PARTIAL MEDICARE PPO BLUE REPLACEMENT MEDICARE PART A & B [employer] NET PARTIAL [place] BL[place]AC[place] MEDICARE PART A & B [employer] NET PARTIAL [place] BL[place] REPLAC[place] MEDICARE PART A & B [facility] PARTIAL [facility] MEDICARE PPO BLUE REPLACEMENT MEDICARE PART A & B [facility] PARTIAL [facility] MEDICARE PPO BLUE REPLACEMENT MEDICARE PART A & B [facility] PARTIAL Care Teams Construction Person Relationship Specialty Start Date End Date Shikha Fleming MD [address] [place] [phone] PCP - General Internal Medicine 12/31/24 Additional Source Comments The information contained in this document represents components of the legal health record. It is not the complete legal health record.[facility]
== END 2025-03-01 12:41 | disposition home or self-care (01) ==
LOC: HO.HMCH 11:12
PROVIDERS: PCP Internal Medicine; Visit Provider Internal Medicine
DX: R09.81 Nasal congestion (principal)

== ENCOUNTER → 2025-03-01 11:11 | Outpatient (BNVA) | payer MEDICARE, SELFPAY | PROVIDERS: PCP Internal Medicine; Visit Provider Internal Medicine | DX: R09.81 Nasal congestion (principal) | CPT/HCPCS: 99212 ==

== ENCOUNTER 2025-03-02 11:11 | Outpatient (AMB) | payer MEDICARE, SELFPAY ==
--- NOTE | 2025-03-02 11:15 | MHC.OFFVIS ---
Vital Signs 03/02/25 11:18 Height 5 ft 6.5 in Weight 132 lb 4.438 oz BMI 21.0 BP 120/76 Blood Pressure Location Lt brachial Position Sitting Pulse 77 Intake Visit Reasons: 3m follow up after testings Intake Note: 3 month follow-up with ekg after testing feeling good EP appt in Apr Director Of Parks And Recreation Required: No Allergies Echinacea Allergy (Intermediate, Verified 03/01/25 11:17) rash isopropyl alcohol Allergy (Intermediate, Verified 03/01/25 11:17) rash Sulfa (Sulfonamide Antibiotics) Allergy (Mild, Verified 03/01/25 11:17) Rash ciprofloxacin (From Cipro) Adverse Reaction (Severe, Verified 03/01/25 11:17) leg cramps metronidazole Adverse Reaction (Mild, Verified 03/01/25 11:17) Abdominal Pain fragrance floral Allergy (Intermediate, Uncoded 03/01/25 11:17) congestion and BEDOYA Medication List - Last Reconciled 03/02/25 by Geo Graham MD diphenoxylate-atropine 2.5-0.025 mg (Lomotil) 1 tab PO BEDTIME PRN doxycycline hyclate 100 mg PO BID PRN fexofenadine (Ale Allergy) 180 mg PO DAILY metoprolol succinate ER (Toprol XL) 25 mg PO DAILY multivitamin 1 tab PO DAILY [Standard Process 1 cap PO 10XD] HPI Comments Details: Milana comes for follow-up. Event monitor was consistent with 1 run of wide complex tachycardia 27 beats per minute, monomorphic with symptoms of lightheadedness. A suggestive of nonsustained ventricular tachycardia. Patient subsequently has extensive workup including cardiac catheterization which showed normal coronary arteries, echocardiogram which showed normal LV ejection fraction and cardiac MRI which shows normal structure of the heart without any evidence of infiltrative disorder. She has started on metoprolol therapy. Since then she has had no recurrent episodes. She also underwent a tilt-table test which was negative for vasovagal syncope. [facility], LAT[facility] Medical History Multinodular goiter Annual physical exam History of ulcerative colitis Kina infection COVID-19 virus infection Lateral epicondylitis of elbow Onychomycosis Shoulder fracture, right Surgical History H/O eye surgery Ulcerative colitis Family History Father CAD (coronary artery disease), Onset Age: 64 Brother Cancer of eye, Onset Age: 67 Skin cancer, Onset Age: 40 Sister Leukemia, Onset Age: 55 MDS (myelodysplastic syndrome), Onset Age: 51 Skin cancer, Onset Age: 45 Mother Lymphoma, Onset Age: 84 CAD (coronary artery disease), Onset Age: 66 Daughter Substance abuse Depression Social History Housing: House Alcohol intake: current Comment: 2 x a month 1-2 drink Patient Tobacco Use Status: Never used Tobacco Tobacco use type: Cigarette e-Cigarette/Vaping Use: Never Used Second Hand Smoke Exposure: No Current occupational status: unemployed Cognitive needs: No Hearing needs: No Vision needs: Yes Review of Systems Const Denies chills, Denies fatigue, Denies fever(s), Denies frequent falls, Denies weakness, Denies weight gain and Denies weight loss ENT Denies dizziness Card Denies chest pain, Denies leg edema, Denies lightheadedness, Denies palpitations, Denies dyspnea, Denies dyspnea on exertion, Denies orthopnea and Denies other (loss of consciousness) Resp Denies cough, Denies dyspnea and Denies dyspnea on exertion GI Denies hematochezia and Denies change in stool character Musc Denies abnormal gait, Denies muscle weakness, Denies numbness, Denies radiating pain into limb and Denies tingling Neuro Denies Abnormal speech present, Denies abnormal gait, Denies dizziness, Denies frequent falls, Denies numbness, Denies tingling and Denies weakness Endo Denies fatigue and Denies palpitations Physical Exam Vital Signs: Last Vital Signs Pulse 77 03/02/25 11:18 BP 120/76 03/02/25 11:18 BMI result Body Mass Index 21.0 Const General: cooperative, comfortable, no acute distress, well developed, alert, awake, Physically active and well groomed Nutritional Appearance: well nourished and thin Orientation/consciousness: patient oriented x3 Limitations: no limitations HEENT Head: Yes normocephalic and Yes atraumatic Neck Neck: Yes trachea midline, Yes supple and Yes no JVD Resp Effort & Inspection: normal respiratory effort Auscultation: clear to auscultation bilaterally Cardio Jugular venous distension: no JVD Palpation: normal PMI Rate: regular rate Rhythm: regular rhythm Heart sounds: S1 normal heart sound present, S2 normal heart sound present, no click, no gallops, no murmurs and no rubs GI Auscultation: normal bowel sounds Skin General skin exam: no rashes or lesions noted Neuro General: patient oriented x3 and no focal motor deficits Speech: No Abnormal speech present Extrem General: Yes no clubbing, cyanosis or edema Psych Appearance: grossly normal Assessment & Plan Assessment & Plan (1) Nonsustained ventricular tachycardia: Code(s): I47.29 - Other ventricular tachycardia Category: Medical Plan: Nonsustained ventricular tachycardia in this elderly woman with normal structure of the heart with no evidence of infiltrative disorder as well as no evidence of ischemia or scar. At this point time this is most likely a primary electrical abnormality. Continue with metoprolol therapy and she has had no recurrent events since then. Advised to maintain adequate hydration. No restriction in activity. She has an upcoming appointment with electrophysiology to consider alternative treatment such as ablation although the origin of this nonsustained ventricular tachycardia is not clear based on cardiac event monitoring findings. Avoidance of stimulants was discussed Will follow up in the clinic in 6 months time, sooner PRN. Thank you for allowing me to partake in his care. Medications: Changed From doxycycline hyclate 100 mg PO BID 20 caps 0RF R09.81 - Nasal congestion To doxycycline hyclate 100 mg PO BID PRN R09.81 - Nasal congestion Coding Level of Care Code Est Pt Level 4 (53994) Diagnoses Nonsustained ventricular tachycardia I47.29
[2025-03-02 11:18] VITALS: BP 120/76; PULSE 77; BMI 21.0
--- OUTSIDE RECORDS SUMMARY | 2025-03-02 15:12 | XMS_ITS | Clinical Summary ---
Author Organization [facility] Address [address] [place] [address] Phone Care Team Providers Care Molding Process Technician Name Role Phone Shikha Fleming MD Primary Care Provider [phone] Encounters Date Type Department Care Team Description 01/26/2025 2:29 PM EST - 01/26/2025 11:59 PM EST Hospital Encounter [facility] Xray [address] [place] [address] Syncope and collapse Discharge Disposition: [...] CROSS - [place] MED[place]ARE AD[place] Care Teams Molding Process Technician Relationship Specialty Start Date End Date Shikha Fleming MD [address] [place] [address] [address] [facility] [place] [address] PCP - General Internal Medicine 05/19/20
--- OUTSIDE RECORDS SUMMARY | 2025-03-02 15:12 | XMS_ITS | Encounter Summary ---
Author Organization [facility] Address [address] [place] [address] Phone Care Team Providers Care Toy Designer Name Role Phone Bright Cain MD Primary Care Provider [phone] Shikha Fleming MD Primary Care Provider [phone] Reason for Referral * Physical Therapy (Routine) - Closed Specialty Diagnoses / Procedures Referred By Contbartolome lopez Referred To Contact Physical Therapy Diagnoses Encounter for rehabilitation System, Provider Not In, [facility] [id number] [place] [address] [address] [place] [address] Phone: tel: Referral ID Status Reason Start Date Expiration Date Visits Re quested Visits Authorized [id number] Closed 08/08/2017 12/31/2017 12 12 Encounter Details Date Type Department Care Team (Latest Contact Info) Description 08/08/2017 Transcribe Orders [facility] [address] [place] [address] Jolly Laurent DO Encounter for rehabilitation (Primary [...] Description 03/10/2025 3:00 PM EST Office Visit [facility] [address] [facility], [address] [place] [address] Tere Mcnair MD [address] [place] [address] [email or web address] documented as of this encounter Procedures Procedure Name Priority Date/Time Associated Diagnosis Comments AMB REFERRAL TO [facility] PHYSICAL THERAPY Routine 08/22/2017 12:17 PM EDT Encounter for rehabilitation documented in this encounter Results * Ambulatory referral to [facility] Physical Therapy (08/22/2017 12:17 PM EDT) us Provider Not In System PhD AMB [facility] REFERRALS Fin al Result documented in this encounter Visit Diagnoses Diagnosis Encounter for rehabilitation- Primary documented in this encounter Care Teams Toy Designer Relationship Specialty Start Date End Date Bright Cain MD [address] [place] [address] PCP - General Internal Medicine 07/22/17 12/30/24 Shikha Fleming MD [address] [place] [address] PCP - General Internal Medicine 12/31/24 documented as of this encounter Additional Source Comments The information contained in this document represents components of the legal health record. It is not the complete legal health record.[facility]
--- OUTSIDE RECORDS SUMMARY | 2025-03-02 15:12 | XMS_ITS | Clinical Summary ---
Author Organization [facility] Address [address] [place] [address] Care Team Providers Care Plasterer Stucco Name Role Phone PoShikha Primary Care Provider [phone] Po, Shikha Unavailable Allergies Active Allergy Reactions [...] patient's age to complete this topic Insurance [address] [place], [place] [address]HEALTH BLUE CROSS BLUE [employer]IELD MEDICARE [place] [address] [address] Care Teams Plasterer Stucco Relationship Specialty Start Date End Date Shikha Fleming [address] [address] PCP - General 12/14/20 Shikha Fleming [address] [address] PCP - Insurance Assigned PCP 04/09/23
--- OUTSIDE RECORDS SUMMARY | 2025-03-02 15:12 | XMS_ITS | Data Portability ---
Author Organization [place] [facility], [facility] Address [address] [place] [address] Care Team Providers Care Payroll Accounting Manager Name Role Phone RADHA RUELAS Primary Care Provider [phone] Assessment Encounter Date Assessment Date Assessment LastModified [...] Organization Details Last Modified Time Details Appointments None recorded. Lab None recorded. Referral interventi onal radiologis t referral - thyroid nodule biopsy 2024 025 [email or web address] [facility], [address] [place], [address], 14:51:29 Procedures None recorded. Surgeries endoscopy, nasal/sinu s, w/ maxillary antrostomy & tissue removal (SURG) 2024 025 [email or web address] Not available 12:27:38 nasal/sinu s endoscopy, surgical with ethmoidect levy, total, including sphenoidot levy, with removal of tissue from the sphenoid sinus (SURG) 2024 025 [email or web address] Not available 12:27:38 stereotact ic computer-a ssisted navigation (SURG) 2024 025 [email or web address] Not available 12:27:38 endoscopy, nasal and sinus (SURG) 2024 025 [email or web address] Not available 12:27:38 Imaging None recorded. Medication Orders None recorded. Patient TargetsNo targets recorded. Patient InstructionsNo instructions recorded. Reason for Referral Interventional Radiologist Kenny vines for Thyroid nodule thyroid nodule biopsy Referring Physician: Crystal Monaco, Otolaryngology, Encounter Date: 10/08/2024 Results Created Date Observation Date Name Description Value Unit Range Abnormal Flag Note LastModifiedBy Organization Detail LastModifiedTime 10/22/19 25 10/08/2024 CT, sinus es, w/o contr ast No observ ation record ed. [email or web address] [facility] [place] [address] [facility] [address], [place], [address], 10/28/2024 09:14:54 Result Notes None recorded. Problems Name Problem SNOMED Code Status Onset Date Resolution Date Notes Provider Name and Address Organization Details Recorded Time Chronic sinusitis 28526455 Active 025 CRYSTAL MONACO MD [address] [facility] [place], [place], [address], [facility] - [facility] 5 15:01:44 Nasal congestion 76333359 Active 025 CRYSTAL MONACO MD [address] [facility], [place], [address], [facility] 5 15:01:46 Chronic rhinitis 05975835 Active 025 CRYSTAL MONACO MD [address] [facility] [place], [facility], [address], [facility] - [facility] 5 15:01:47 Thyroid nodule 343515014 Active 025 CRYSTAL MONACO MD [address] [facility] [place], [place], [address], [facility] - [facility] 5 10:28:23 Recurrent acute sinusitis 113972930 Active 025 CRYSTAL MONACO MD [address] [facility] [address], [place], [address], [facility] - [facility] 12:25:44 Problem Notes None recorded. Procedures Surgical History Date Name Laterality Status Provider Name and Address Organization Details Recorded Time 5 NasalEndoscop y_DP completed CRYSTAL MONACO MD [address] [facility] [address], [place], [address], [facility] - [facility] 09/23/2024 13:56:30 excision of colon completed Melinda Foreman [facility] 09/23/2024 13:56:16 Imaging Results None recorded. Procedure Notes None recorded. Medical Equipment None Reported. Allergies Allergen ID Allergen Name Allergen Category Reaction Reaction Severity Criticality Documentation Date Start Date Code Code System Note Provider Name and Address Organization Details Recorded Time 211173 Substance with sulfonami de structure and antibacte rial mechanism of action (substanc e) medicatio n Not available Not available Not available 09/23/2024 38531 8003 SNOMED Melinda hoyt [place] - [facility] 13:51:43 469394 ciproflox acin medicatio n Not available Not available Not available 09/23/2024 2551 RxNorm Melinda hoyt [place] [facility] 13:51:53 048286 isopropyl alcohol medicatio n Not available Not available Not available 09/23/2024 92588 1 RxNorm Melinda hoyt [place] [facility] 13:52:17 824881 Echinacea preparati on medicatio n Not available Not available Not available 02/03/2025 02679 1 RxNorm Not Available [employer] - prod 11:49:23 899852 metronida zole medicatio n abdominal pain mild low 03/02/20252024 6922 RxNorm Not Available [employer] - prod 09:21:46 Medications Name Sig Start Date Stop Date [...] Updated DateTime 09/23/2024 165.61 cm 21.5 kg/m2 88809.01 g Melinda Foreman [place] - [facility] 09/23/2024 13:51:28 Social History None recorded. Functional Status None recorded. Mental Status None recorded. Family History Nothing Reported. Medical History Condition Response Allergies/Hayfever N Heart Problems N Anxiety N Tonsil Infections N Emphysema N Migraines N Thyroid Problems Y Depression N COPD N Developmental Delay N Glaucoma N Nasal or Sinus Problems N Anemia Y Immune System Disorder N Anesthesia Complications N Heart Attack ([place]) N Other Skin Condition N Diabetes N [...] ICD10 Code Diagnosis IMO Codes Diagnosis Note [id number] CRYSTAL MONACO MD [facility] [address] [address] 09/23/2024 13:25:42 09/23/2024 14:11:16 Chronic sinusitis 46903739 J32.9 076344939 Nasal congestion 4283223 0 R09.81 40908 Chronic rhinitis 9953572 6 J31.0 2545 [id number] CRYSTAL MONACO MD [facility] [address] [address] 10/08/2024 09:18:41 10/08/2024 10:37:24 Thyroid nodule 428589802 E04.1 61194 Chronic rhinitis 9650601 6 J31.0 2545 Recurrent acute sinusitis 842635372 J01.91 289032098 Health Concerns Section Related Observation LastModified by Organization Detai ls LastModified Time None Recorded Concern Status LastModified by Organization Details LastModified Time None Recorded Advance Directives Directive None Recorded Payers Insurance Date Sequence Insurance Name Policy Number Policy Flower Covered Member ID Flower Member ID Guarantor Name 11/09/2024 1 [place] (MEDICARE [place]PLACEMENT PPO) [id number] Milana Mendoza [id number] Milana Mendoza 11/09/2024 2 [place] [facility] Milana Mendoza [id number] Milana Mendoza Notes Date Note Type Note [...] smokingNo other health problems CRYSTAL MONACO MD [address] [place] [address], [address], [facility] 09/23/2024 15:02:00 5 text/html She has [...] ethmoid, and sphenoid sinuses CRYSTAL MONACO MD [address] [place] [address], [place], [address], [place] [facility] 10/08/2024 12:26:24 OBGyn Episode No OBEpisode recorded.
--- OUTSIDE RECORDS SUMMARY | 2025-03-02 15:12 | XMS_ITS | Encounter Summary ---
Author Organization [facility] Address [address] [place] [address] [place] [address] Phone Care Team Providers Care Clinical Registered Nurse Name Role Phone Bright Cain MD Primary Care Provider [phone] Shikha Fleming MD Primary Care Provider [phone] Encounter Details Date Type Department Care Team (Late st Contact Info) Description 08/08/2017 Transcribe Orders [facility] [address] [place] [address] Jolly Laurent DO Social History Tobacco Use [...] Description 03/10/2025 3:00 PM EST Office Visit [facility] [address] [facility], [address] [place] [address] Tere Mcnair MD [address] [place] [address] [email or web address] documented as of this encounter Visit Diagnoses Not on filedocumented in this encounter Care Teams Clinical Registered Nurse Relationship Specialty Start Date End Date Bright Cain MD [facility] [place] [address] PCP - General Internal Medicine 07/22/17 12/30/24 Shikha Fleming MD [address] [place] [address] [place] [address] PCP - General Internal Medicine 12/31/24 documented as of this encounter Additional Source Comments The information contained in this document represents components of the legal health record. It is not the complete legal health record.[facility]
--- OUTSIDE RECORDS SUMMARY | 2025-03-02 15:12 | XMS_ITS | Clinical Summary ---
Author Organization [facility] Address [address] [place] [address] Drive [address] [place] [address] Phone Care Team Providers Care Station Engineer Name Role Phone Shikha Fleming MD Primary Care Provider [phone] Encounters Date Type Department Care Team Description 12/21/2024 Transcribe Orders [facility] [address] [facility], [address] [place] [address] Bright Cain MD Thyroid nodule (Primary Dx) 12/15/2024 Telephone [facility] [address] [address] Silvio Canales-Kannanga Albina 12/15/2024 Telephone [facility] [address] [address] Unknown, Unknown, TNC/New from Last 3 Months [...] Description 03/10/2025 3:00 PM EST Office Visit [facility] [address] [facility], [address] [place] [address] Tere Mcnair MD [address] [place] [address] [email or web address] Health Maintenance Due Date Last Done Comments [...] BLUE REPLACEMENT MEDICARE PART A & B COMMUNITY HEALTH PARTIAL MEDICARE PPO BLUE REPLACEMENT MEDICARE PART A & B HEALTH SAFETY NET PARTIAL [place] BL[place] MEDICARE PART A & B [employer] SAFETY NET PART[place] BL[place] RE[place] MEDICARE PART A & B COMMUNITY HEALTH PARTIAL [facility] MEDICARE PPO BLUE REPLACEMENT MEDICARE PART A & B COMMUNITY HEALTH PARTIAL [facility] MEDICARE PPO BLUE REPLACEMENT MEDICARE PART A & B COMMUNITY HEALTH PARTIAL Care Teams Station Engineer Relationship Specialty Start Date End Date Shikha Fleming MD [address] [place] [address] PCP - General Internal Medicine 12/31/24 Additional Source Comments The information contained in this document represents components of the legal health record. It is not the complete legal health record.[facility]
== END 2025-03-02 11:41 | disposition home or self-care (01) ==
LOC: HO.HCS 11:12
PROVIDERS: PCP Internal Medicine; Visit Provider Internal Medicine Cardiovascular Disease
DX: I47.29 Other ventricular tachycardia (principal)
CPT/HCPCS: 99214

== ENCOUNTER → 2025-03-02 11:11 | Outpatient (BNVA) | payer MEDICARE, SELFPAY | PROVIDERS: PCP Internal Medicine; Visit Provider Internal Medicine Cardiovascular Disease | DX: I47.29 Other ventricular tachycardia (principal); Z79.899 Other long term (current) drug therapy; R09.89 Other specified symptoms and signs involving the circulatory and respiratory systems | CPT/HCPCS: 99212 ==